=== PATIENT | male | born 1970 | race African-American/Black ===

== ENCOUNTER 2016-11-04 13:32 | Inpatient (IN) | payer MEDICAID ==
[~2016-11-04] VITALS: Ht 188 cm; Wt 145.6 kg
[~2016-11-04 13:32] MED LIST: ALBU18HF2 IH; ASPI-1159 PO; CLON0.1T PO; FERR-43 PO; FURO40TA5 PO; LABE200T PO; LORA10TA7 PO; NIFE60TA64 PO
[2016-11-04 14:23] LABS: BASOPHILS % 0.6 % (0.0-2.0); EOSINOPHILS % 2.3 % (0.0-5.0); HEMATOCRIT. 29.6 % (42.0-52.0); HEMOGLOBIN. 9.8 g/dL (14.0-18.0); MEAN CORPUSCULAR HEMOGLOBIN 29.8 pg (28.0-32.0); MEAN CORPUSCULAR VOLUME 90.5 fL (80.0-94.0); MONOCYTES % 10.7 % (2.0-8.0); NEUTROPHILS % 78.4 % (40.0-76.0); PLATELET 247 x1000/uL (130-400); RED BLOOD CELL COUNT 3.27 mill/uL (4.7-6.1); RED CELL DISTRIBUTION WIDTH 16.7 % (11.6-14.6)
[2016-11-04 14:24] LABS: BG BASE EXCESS 6.2 mmol/L (-2.0-2.0); BG BILEVEL POS AIRWAY PRESSURE 15/5; BG CARBOXYHEMOGLOBIN 0.8 % (0.5-1.5); BG DEOXYHEMOGLOBIN 1.7 % (0.0-5.0); BG METHEMOGLOBIN 0.3 % (0.0-1.5); BG OXYGEN SATURATION 98.3 % (92.0-98.5); BG OXYHEMOGLOBIN 97.2 % (94.0-97.0); BG PCO2 52.8 mmHg (35.0-45.0); BG PH 7.401 (7.350-7.450); BG PO2 129.6 mmHg (75.0-100.0); BG SAMPLE SITE RIGHT RADIAL; BG TOTAL HEMOGLOBIN 10.8 g/dL (12.0-18.0); BG VENT MODE MASK - BIPAP; BG VENT RATE 20 set
[2016-11-04 14:28] LABS: INR 1.2
[2016-11-04 14:32] LABS: CARBON DIOXIDE 34 mEq/L (21-32); CHLORIDE 102 mEq/L (98-107)
[2016-11-04 14:38] LABS: TROPONIN I < 0.02 ng/mL (0.00-0.04)
[2016-11-04] MEDS ORDERED: FUROSEMIDE 40MG/4ML VIAL IVP ONE (15:00)
[2016-11-04] MEDS ORDERED: LIDOCAINE HCL/PF 1% 2ML VIAL ONE (17:07)
[2016-11-04] MEDS ORDERED: IPRATROPIUM/ALBUTEROL 0.5-3(2.5)MG/3ML NEB HHN PRN (17:15)
[2016-11-04] MEDS ORDERED: FURO40TA5 PO (17:58)
[2016-11-04] MEDS ORDERED: ATOR40TA70 PO (17:58)
[2016-11-04] MEDS ORDERED: ZINC50TA2 PO (17:58)
[2016-11-04] MEDS ORDERED: HYDR100T26 PO (17:58)
[2016-11-04] MEDS ORDERED: LOSA100T14 PO (17:58)
[2016-11-04] MEDS ORDERED: CLON0.3T PO (17:58)
[2016-11-04] MEDS ORDERED: CLOP75TA33 PO (17:58)
[2016-11-04] MEDS ORDERED: CARV3.1242 PO (17:58)
[2016-11-04] MEDS ORDERED: FLUT15.88 NS (17:58)
[2016-11-04] MEDS ORDERED: KDUR20 PO (17:58)
[2016-11-04] MEDS ORDERED: VERA240C2 PO (17:58)
[2016-11-04 18:00] VITALS: BP 189/107
[2016-11-04] MEDS ORDERED: ONDANSETRON HCL 4MG/2ML VIAL IV PRN (19:15)
[2016-11-04] MEDS ORDERED: IPRATROPIUM/ALBUTEROL 0.5-3(2.5)MG/3ML NEB INH PRN (19:15)
[2016-11-04] MEDS ORDERED: GUAIFENESIN 200MG/10ML SUGAR FREE UDC PO PRN (19:15)
[2016-11-04] MEDS: ACETAMINOPHEN 325MG TABLET PO PRN (19:49)
[2016-11-04] MEDS: CLONIDINE 0.1MG TABLET PO PRN (19:49)
[2016-11-04 19:51] VITALS: BP 182/103
[2016-11-04 20:00] VITALS: BP 172/109
[2016-11-04] MEDS ORDERED: IPRATROPIUM/ALBUTEROL 0.5-3(2.5)MG/3ML NEB HHN SCH (20:00)
[2016-11-04] MEDS: IPRATROPIUM/ALBUTEROL 0.5-3(2.5)MG/3ML NEB HHN SCH (20:32)
[2016-11-04 22:00] VITALS: BP 155/89
[2016-11-04] MEDS: SODIUM CHLORIDE 0.9% INJ 3ML FLUSH IVF SCH (22:20)
[2016-11-05] VITALS (12 sets, daily range): BP systolic 128–170; BP diastolic 70–99
[2016-11-05] MEDS: HYDRALAZINE 20MG/ML VIAL IV PRN ×3 (00:39→17:50)
[2016-11-05] MEDS: IPRATROPIUM/ALBUTEROL 0.5-3(2.5)MG/3ML NEB HHN SCH ×5 (00:55→20:48)
[2016-11-05] MEDS: SODIUM CHLORIDE 0.9% INJ 3ML FLUSH IVF SCH ×3 (06:00→21:23)
[2016-11-05] MEDS: CLONIDINE 0.1MG TABLET PO PRN ×3 (07:06→19:03)
[2016-11-05] MEDS: HYDRALAZINE HCL 100MG TABLET PO SCH ×2 (08:41→16:56)
[2016-11-05] MEDS: LOSARTAN POTASSIUM 100 MG TABLET PO SCH (08:41)
[2016-11-05] MEDS: CARVEDILOL 3.125 MG TABLET PO SCH ×2 (08:42→21:23)
[2016-11-05] MEDS: CLONIDINE 0.3MG TABLET PO SCH ×3 (08:48→16:56)
[2016-11-05] MEDS: FUROSEMIDE 40MG/4ML VIAL IVP SCH (08:48)
[2016-11-05] MEDS ORDERED: ATORVASTATIN CALCIUM 40MG TABLET PO SCH (09:00)
[2016-11-05 10:26] LABS: CARBON DIOXIDE 32 mEq/L (21-32); CHLORIDE 98 mEq/L (98-107)
[2016-11-05] MEDS: IBUPROFEN 800MG TABLET PO PRN (18:58)
[2016-11-05] MEDS: ATORVASTATIN CALCIUM 40MG TABLET PO SCH (21:23)
[2016-11-06] VITALS (20 sets, daily range): BP systolic 119–181; BP diastolic 78–106
[2016-11-06] MEDS: IPRATROPIUM/ALBUTEROL 0.5-3(2.5)MG/3ML NEB HHN SCH ×6 (00:45→20:14)
[2016-11-06] MEDS: CLONIDINE 0.1MG TABLET PO PRN (04:46)
[2016-11-06] MEDS: SODIUM CHLORIDE 0.9% INJ 3ML FLUSH IVF SCH ×3 (04:46→20:31)
[2016-11-06] MEDS: IBUPROFEN 800MG TABLET PO PRN ×2 (04:50→19:13)
[2016-11-06] MEDS: FUROSEMIDE 40MG/4ML VIAL IVP SCH (08:45)
[2016-11-06] MEDS: HYDRALAZINE HCL 100MG TABLET PO SCH ×2 (08:46→19:13)
[2016-11-06] MEDS: CARVEDILOL 3.125 MG TABLET PO SCH ×2 (08:46→20:31)
[2016-11-06] MEDS: LOSARTAN POTASSIUM 100 MG TABLET PO SCH (08:46)
[2016-11-06] MEDS: CLONIDINE 0.3MG TABLET PO SCH ×3 (08:47→19:13)
[2016-11-06] MEDS: DIPHENHYDRAMINE 50MG/ML VIAL IV PRN (13:07)
[2016-11-06] MEDS: ATORVASTATIN CALCIUM 40MG TABLET PO SCH (20:30)
[2016-11-07] VITALS (13 sets, daily range): BP systolic 145–187; BP diastolic 81–125
[2016-11-07] MEDS: IPRATROPIUM/ALBUTEROL 0.5-3(2.5)MG/3ML NEB HHN SCH ×6 (00:15→20:47)
[2016-11-07] MEDS: HYDRALAZINE 20MG/ML VIAL IV PRN (04:07)
[2016-11-07] MEDS: IBUPROFEN 800MG TABLET PO PRN ×2 (05:25→15:29)
[2016-11-07] MEDS: SODIUM CHLORIDE 0.9% INJ 3ML FLUSH IVF SCH ×3 (06:27→21:01)
[2016-11-07] MEDS: FUROSEMIDE 40MG/4ML VIAL IVP SCH (08:53)
[2016-11-07] MEDS: HYDRALAZINE HCL 100MG TABLET PO SCH ×2 (08:53→17:26)
[2016-11-07] MEDS: CLONIDINE 0.3MG TABLET PO SCH ×3 (08:54→17:26)
[2016-11-07] MEDS: LOSARTAN POTASSIUM 100 MG TABLET PO SCH (08:54)
[2016-11-07] MEDS: CARVEDILOL 3.125 MG TABLET PO SCH ×2 (08:54→20:51)
[2016-11-07 09:27] LABS: BASOPHILS % 0.6 % (0.0-2.0); EOSINOPHILS % 2.9 % (0.0-5.0); HEMATOCRIT. 29.1 % (42.0-52.0); HEMOGLOBIN. 9.5 g/dL (14.0-18.0); LYMPHOCYTES % 7.4 % (20.0-50.0); MEAN CORPUSCULAR HEMOGLOBIN 29.3 pg (28.0-32.0); MEAN CORPUSCULAR VOLUME 89.9 fL (80.0-94.0); MEAN PLATELET VOLUME 8.5 fl (7.4-10.4); MONOCYTES % 10.6 % (2.0-8.0); NEUTROPHILS % 78.5 % (40.0-76.0); PLATELET 230 x1000/uL (130-400); RED BLOOD CELL COUNT 3.24 mill/uL (4.7-6.1); RED CELL DISTRIBUTION WIDTH 16.2 % (11.6-14.6)
[2016-11-07 09:44] LABS: CARBON DIOXIDE 35 mEq/L (21-32); CHLORIDE 101 mEq/L (98-107)
[2016-11-07] MEDS: DIPHENHYDRAMINE 50MG/ML VIAL IV PRN (15:41)
[2016-11-07] MEDS: ATORVASTATIN CALCIUM 40MG TABLET PO SCH (20:51)
[2016-11-08] VITALS (12 sets, daily range): BP systolic 161–182; BP diastolic 81–116
[2016-11-08] MEDS: IPRATROPIUM/ALBUTEROL 0.5-3(2.5)MG/3ML NEB HHN SCH ×6 (00:44→20:44)
[2016-11-08] MEDS: SODIUM CHLORIDE 0.9% INJ 3ML FLUSH IVF SCH ×3 (05:29→21:19)
[2016-11-08] MEDS: ACETAMINOPHEN 325MG TABLET PO PRN (05:47)
[2016-11-08] MEDS: CLONIDINE 0.3MG TABLET PO SCH ×3 (09:17→18:12)
[2016-11-08] MEDS: FUROSEMIDE 40MG/4ML VIAL IVP SCH (09:18)
[2016-11-08] MEDS: CARVEDILOL 3.125 MG TABLET PO SCH ×2 (09:18→20:44)
[2016-11-08] MEDS: HYDRALAZINE HCL 100MG TABLET PO SCH ×2 (09:18→18:12)
[2016-11-08] MEDS: LOSARTAN POTASSIUM 100 MG TABLET PO SCH (09:18)
[2016-11-08] MEDS: MAGNESIUM/ALUMINUM HYDROXIDE/SIMETHICONE 30ML UDC PO PRN (19:10)
[2016-11-08] MEDS: ATORVASTATIN CALCIUM 40MG TABLET PO SCH (20:44)
[2016-11-08] MEDS: IBUPROFEN 800MG TABLET PO PRN (21:23)
[2016-11-08] MEDS: CLONIDINE 0.1MG TABLET PO PRN (23:57)
[2016-11-09] VITALS (13 sets, daily range): BP systolic 142–178; BP diastolic 77–107
[2016-11-09] MEDS: IPRATROPIUM/ALBUTEROL 0.5-3(2.5)MG/3ML NEB HHN SCH ×7 (00:39→23:24)
[2016-11-09] MEDS: SODIUM CHLORIDE 0.9% INJ 3ML FLUSH IVF SCH ×3 (07:09→21:37)
[2016-11-09] MEDS: FUROSEMIDE 40MG/4ML VIAL IVP SCH (08:05)
[2016-11-09] MEDS: LOSARTAN POTASSIUM 100 MG TABLET PO SCH (08:06)
[2016-11-09] MEDS: CLONIDINE 0.3MG TABLET PO SCH ×3 (08:06→17:20)
[2016-11-09] MEDS: HYDRALAZINE HCL 100MG TABLET PO SCH ×2 (08:06→17:20)
[2016-11-09] MEDS: CARVEDILOL 3.125 MG TABLET PO SCH ×2 (08:06→20:06)
[2016-11-09] MEDS: IBUPROFEN 800MG TABLET PO PRN (11:53)
[2016-11-09] MEDS: HYDRALAZINE 20MG/ML VIAL IV PRN (15:22)
[2016-11-09] MEDS: CLONIDINE 0.1MG TABLET PO PRN ×2 (18:30→21:50)
[2016-11-09] MEDS: ATORVASTATIN CALCIUM 40MG TABLET PO SCH (20:04)
[2016-11-10] VITALS (11 sets, daily range): BP systolic 143–191; BP diastolic 80–117
[2016-11-10] MEDS: IPRATROPIUM/ALBUTEROL 0.5-3(2.5)MG/3ML NEB HHN SCH ×6 (03:49→20:34)
[2016-11-10] MEDS: CLONIDINE 0.1MG TABLET PO PRN (04:44)
[2016-11-10] MEDS: SODIUM CHLORIDE 0.9% INJ 3ML FLUSH IVF SCH ×2 (05:34→21:57)
[2016-11-10] MEDS: IBUPROFEN 800MG TABLET PO PRN ×2 (06:15→17:30)
[2016-11-10 06:28] LABS: INR 1.1; PROTHROMBIN TIME 11.3 sec (9.4-11.6)
[2016-11-10] MEDS ORDERED: HYDRALAZINE 20MG/ML VIAL IV PRN (06:30)
[2016-11-10] MEDS: HYDRALAZINE 20MG/ML VIAL IV PRN ×2 (07:06→15:31)
[2016-11-10] MEDS: FUROSEMIDE 40MG/4ML VIAL IVP SCH (09:00)
[2016-11-10] MEDS: CLONIDINE 0.3MG TABLET PO SCH ×3 (09:00→17:26)
[2016-11-10] MEDS: LOSARTAN POTASSIUM 100 MG TABLET PO SCH (09:00)
[2016-11-10] MEDS: HYDRALAZINE HCL 100MG TABLET PO SCH ×2 (09:01→17:25)
[2016-11-10] MEDS: CARVEDILOL 3.125 MG TABLET PO SCH ×2 (09:01→20:08)
[2016-11-10] MEDS: DIPHENHYDRAMINE 50MG/ML VIAL IV PRN (10:15)
[2016-11-10] MEDS ORDERED: SODIUM BICARBONATE 4.2% 5 MEQ/10 ML DISP.SYRIN IV ONE (13:37)
[2016-11-10] MEDS: ACETAMINOPHEN 325MG TABLET PO PRN (20:08)
[2016-11-10] MEDS: ATORVASTATIN CALCIUM 40MG TABLET PO SCH (20:08)
[2016-11-10] MEDS: VERAPAMIL HCL 240MG SR TABLET PO SCH (21:57)
[2016-11-11] VITALS (13 sets, daily range): BP systolic 125–168; BP diastolic 68–110
[2016-11-11] MEDS: CLONIDINE 0.3MG TABLET PO SCH ×3 (00:12→16:31)
[2016-11-11] MEDS: HYDRALAZINE HCL 100MG TABLET PO SCH ×3 (00:13→16:31)
[2016-11-11] MEDS: IPRATROPIUM/ALBUTEROL 0.5-3(2.5)MG/3ML NEB HHN SCH ×6 (00:26→21:08)
[2016-11-11] MEDS: DIPHENHYDRAMINE 50MG/ML VIAL IV PRN (05:34)
[2016-11-11] MEDS: IBUPROFEN 800MG TABLET PO PRN (05:35)
[2016-11-11] MEDS: SODIUM CHLORIDE 0.9% INJ 3ML FLUSH IVF SCH ×3 (05:51→21:31)
[2016-11-11] MEDS: VERAPAMIL HCL 240MG SR TABLET PO SCH ×2 (08:14→21:34)
[2016-11-11] MEDS: CARVEDILOL 3.125 MG TABLET PO SCH ×2 (08:14→21:31)
[2016-11-11] MEDS: LOSARTAN POTASSIUM 100 MG TABLET PO SCH (08:14)
[2016-11-11] MEDS: FUROSEMIDE 40MG/4ML VIAL IVP SCH (08:15)
[2016-11-11 12:30] LABS: HEMATOCRIT 27.4 % (42.0-52.0); HEMOGLOBIN 8.9 g/dL (14.0-18.0); MEAN CORPUSCULAR HEMOGLOBIN 29.4 pg (28.0-32.0); PLATELET 222 x1000/uL (130-400); RED BLOOD CELL COUNT 3.04 mill/uL (4.7-6.1); RED CELL DISTRIBUTION WIDTH 16.3 % (11.6-14.6)
[2016-11-11] MEDS: DOCUSATE SODIUM 100MG CAPSULE PO SCH (17:24)
[2016-11-11 17:44] LABS: HEMATOCRIT 27.8 % (42.0-52.0); MEAN CORPUSCULAR HEMOGLOBIN 29.3 pg (28.0-32.0); MEAN CORPUSCULAR VOLUME 90.2 fL (80.0-94.0); PLATELET 241 x1000/uL (130-400); RED BLOOD CELL COUNT 3.08 mill/uL (4.7-6.1); RED CELL DISTRIBUTION WIDTH 16.2 % (11.6-14.6)
[2016-11-11 17:58] LABS: TOTAL IRON BINDING CAPACITY 182 ug/dL (250-450)
[2016-11-11 18:26] LABS: FOLIC ACID (FOLATE) SERUM 8.8 ng/mL (>5.38)
[2016-11-11] MEDS: MAGNESIUM/ALUMINUM HYDROXIDE/SIMETHICONE 30ML UDC PO PRN (18:29)
[2016-11-11] MEDS: ACETAMINOPHEN 325MG TABLET PO PRN (19:45)
[2016-11-11] MEDS: ATORVASTATIN CALCIUM 40MG TABLET PO SCH (21:31)
[2016-11-11] MEDS ORDERED: MAGNESIUM CITRATE 300ML SOLUTION PO NR (22:00)
[2016-11-12] VITALS (12 sets, daily range): BP systolic 130–157; BP diastolic 69–90
[2016-11-12] MEDS: HYDRALAZINE HCL 100MG TABLET PO SCH ×3 (00:11→19:54)
[2016-11-12] MEDS: CLONIDINE 0.3MG TABLET PO SCH ×3 (00:12→19:53)
[2016-11-12] MEDS: IPRATROPIUM/ALBUTEROL 0.5-3(2.5)MG/3ML NEB HHN SCH ×6 (00:42→20:37)
[2016-11-12] MEDS: DIPHENHYDRAMINE 50MG/ML VIAL IV PRN (05:38)
[2016-11-12] MEDS: SODIUM CHLORIDE 0.9% INJ 3ML FLUSH IVF SCH ×3 (05:38→21:37)
[2016-11-12] MEDS: LOSARTAN POTASSIUM 100 MG TABLET PO SCH (09:03)
[2016-11-12] MEDS: FUROSEMIDE 40MG/4ML VIAL IVP SCH (09:03)
[2016-11-12] MEDS: VERAPAMIL HCL 240MG SR TABLET PO SCH ×2 (09:04→21:10)
[2016-11-12] MEDS: DOCUSATE SODIUM 100MG CAPSULE PO SCH ×2 (09:05→19:53)
[2016-11-12] MEDS: IBUPROFEN 800MG TABLET PO PRN (09:05)
[2016-11-12] MEDS: CARVEDILOL 3.125 MG TABLET PO SCH ×2 (09:08→21:13)
[2016-11-12] MEDS: ASCORBIC ACID 500 MG TABLET PO SCH ×2 (11:41→21:10)
[2016-11-12] MEDS: ACETAMINOPHEN 325MG TABLET PO PRN (11:41)
[2016-11-12] MEDS: HYDROCODONE/ACETAMINOPHEN 5/325MG TABLET PO PRN ×2 (12:04→21:09)
[2016-11-12] MEDS: FERROUS SULFATE 325MG TABLET PO SCH ×2 (13:22→19:53)
[2016-11-12] MEDS: ATORVASTATIN CALCIUM 40MG TABLET PO SCH (21:10)
[2016-11-13] VITALS (14 sets, daily range): BP systolic 121–164; BP diastolic 77–93
[2016-11-13] MEDS: IPRATROPIUM/ALBUTEROL 0.5-3(2.5)MG/3ML NEB HHN SCH ×6 (00:43→20:18)
[2016-11-13] MEDS: HYDRALAZINE HCL 100MG TABLET PO SCH ×3 (01:00→20:44)
[2016-11-13] MEDS: CLONIDINE 0.3MG TABLET PO SCH ×3 (01:00→20:45)
[2016-11-13] MEDS: SODIUM CHLORIDE 0.9% INJ 3ML FLUSH IVF SCH ×3 (05:10→20:44)
[2016-11-13] MEDS: DIPHENHYDRAMINE 50MG/ML VIAL IV PRN ×3 (06:05→16:28)
[2016-11-13] MEDS: HYDROCODONE/ACETAMINOPHEN 5/325MG TABLET PO PRN ×3 (06:07→16:27)
[2016-11-13] MEDS: FUROSEMIDE 40MG/4ML VIAL IVP SCH (09:26)
[2016-11-13] MEDS: ASCORBIC ACID 500 MG TABLET PO SCH ×2 (09:27→20:43)
[2016-11-13] MEDS: LOSARTAN POTASSIUM 100 MG TABLET PO SCH (09:27)
[2016-11-13] MEDS: DOCUSATE SODIUM 100MG CAPSULE PO SCH ×2 (09:27→18:04)
[2016-11-13] MEDS: CARVEDILOL 3.125 MG TABLET PO SCH ×2 (09:27→20:45)
[2016-11-13] MEDS: FERROUS SULFATE 325MG TABLET PO SCH ×3 (09:27→18:04)
[2016-11-13] MEDS: VERAPAMIL HCL 240MG SR TABLET PO SCH ×2 (09:27→20:46)
[2016-11-13] MEDS: MAGNESIUM/ALUMINUM HYDROXIDE/SIMETHICONE 30ML UDC PO PRN (16:34)
[2016-11-13] MEDS: ATORVASTATIN CALCIUM 40MG TABLET PO SCH (20:42)
[2016-11-14] VITALS (8 sets, daily range): BP systolic 134–159; BP diastolic 69–94
[2016-11-14] MEDS: IPRATROPIUM/ALBUTEROL 0.5-3(2.5)MG/3ML NEB HHN SCH ×3 (00:55→07:31)
[2016-11-14] MEDS: DIPHENHYDRAMINE 50MG/ML VIAL IV PRN (06:09)
[2016-11-14] MEDS: HYDRALAZINE HCL 100MG TABLET PO SCH (06:10)
[2016-11-14] MEDS: SODIUM CHLORIDE 0.9% INJ 3ML FLUSH IVF SCH (06:10)
[2016-11-14] MEDS: CLONIDINE 0.3MG TABLET PO SCH (06:11)
[2016-11-14] MEDS: HYDROCODONE/ACETAMINOPHEN 5/325MG TABLET PO PRN (06:12)
[2016-11-14] MEDS: VERAPAMIL HCL 240MG SR TABLET PO SCH (08:24)
[2016-11-14] MEDS: FERROUS SULFATE 325MG TABLET PO SCH (08:24)
[2016-11-14] MEDS: DOCUSATE SODIUM 100MG CAPSULE PO SCH (08:24)
[2016-11-14] MEDS: FUROSEMIDE 40MG/4ML VIAL IVP SCH (08:24)
[2016-11-14] MEDS: LOSARTAN POTASSIUM 100 MG TABLET PO SCH (08:25)
[2016-11-14] MEDS: CARVEDILOL 3.125 MG TABLET PO SCH (08:25)
[2016-11-14] MEDS: ASCORBIC ACID 500 MG TABLET PO SCH (08:25)
== END 2016-11-14 10:30 | disposition short-term general hospital (02) | DRG 133 ==
LOC: ER 14:24 → 5EST 15:51 → ENRESERV 16:09 → 5EST 11-09 04:34
PROVIDERS: ADMIT Internal Medicine; ATTEND Internal Medicine
PROC: 0W993ZZ Drainage of Right Pleural Cavity, Percutaneous Approach (ICD-10-PCS; principal; 2016-11-10)
DX: J96.00 Acute respiratory failure, unspecified whether with hypoxia or hypercapnia (principal); I50.33 Acute on chronic diastolic (congestive) heart failure; E43 Unspecified severe protein-calorie malnutrition; C85.90 Non-Hodgkin lymphoma, unspecified, unspecified site; Z93.0 Tracheostomy status; J84.10 Pulmonary fibrosis, unspecified; Z85.9 Personal history of malignant neoplasm, unspecified; J90 Pleural effusion, not elsewhere classified; K92.2 Gastrointestinal hemorrhage, unspecified; E66.01 Morbid (severe) obesity due to excess calories; I11.0 Hypertensive heart disease with heart failure; D64.9 Anemia, unspecified; G47.30 Sleep apnea, unspecified; D72.829 Elevated white blood cell count, unspecified; I36.1 Nonrheumatic tricuspid (valve) insufficiency; I34.0 Nonrheumatic mitral (valve) insufficiency; Z68.41 Body mass index [BMI] 40.0-44.9, adult; Z86.73 Personal history of transient ischemic attack (TIA), and cerebral infarction without residual deficits; Z87.891 Personal history of nicotine dependence; Z79.899 Other long term (current) drug therapy; Z84.1 Family history of disorders of kidney and ureter; Z79.82 Long term (current) use of aspirin
CPT/HCPCS: 32555; 36415; 36600; 71010; 71275; 80048; 80053; 82040; 82375; 82607; 82728; 82746; 82805; 82945; 83540; 83550; 83615; 83880; 84157; 84484; 85025; 85027; 85610; 87070; 87205; 88108; 88312; 89050; 93005; 94640; 94660; 94664; 96374; 97116; 97162; 99291; J0360; J1200; J1940; J3490; J7620

== ENCOUNTER 2018-08-23 04:34 | Inpatient (IN) | payer MEDICAID ==
[~2018-08-23] VITALS: Ht 175.3 cm; Wt 161.5 kg
[~2018-08-23 04:34] MED LIST changes: -ASPI-1159 PO; +ASPI-1393 PO; +ATOR40TA70 PO; +CARV3.1242 PO; -CLON0.1T PO; +CLON0.3T PO; +CLOP75TA33 PO; -FERR-43 PO; +FLUT15.88 NS; +HYDR100T26 PO; +KDUR20 PO; -LABE200T PO; -LORA10TA7 PO; +LOSA100T32 PO; -NIFE60TA64 PO; +VERA240C2 PO; +ZINC50TA2 PO
[2018-08-23] MEDS ORDERED: IPRATROPIUM BROMIDE (0.02%) 0.5MG/2.5ML NEB HHN STA (04:40)
[2018-08-23] MEDS ORDERED: METHYLPREDNISOLONE SOD SUCC 125 MG/2 ML VIAL IV STA (04:40)
[2018-08-23] MEDS ORDERED: NITROGLYCERIN 50MG PREMIX 250 ML IV ONE (04:45)
[2018-08-23] MEDS ORDERED: FUROSEMIDE 40MG/4ML VIAL IV ONE (04:45)
[2018-08-23] MEDS ORDERED: MAGNESIUM 2 G PREMIX 50 ML IV ONE ×2 (04:45→13:00)
[2018-08-23] MEDS: ALBUTEROL (0.083%) 2.5MG/3ML NEB HHN SCH ×3 (05:00→06:00)
[2018-08-23 05:10] LABS: BASOPHILS % 1.3 % (0.0-2.0); EOSINOPHILS % 5.4 % (0.0-5.0); HEMATOCRIT. 35.2 % (42.0-52.0); HEMOGLOBIN. 12.1 g/dL (14.0-18.0); LYMPHOCYTES % 16.6 % (20.0-50.0); MEAN CORPUSCULAR VOLUME 89.9 fL (80.0-94.0); MEAN PLATELET VOLUME 9.4 fl (7.4-10.4); MONOCYTES % 7.1 % (2.0-8.0); NEUTROPHILS % 69.6 % (40.0-76.0); PLATELET 271 x1000/uL (130-400); RED BLOOD CELL COUNT 3.91 mill/uL (4.7-6.1); RED CELL DISTRIBUTION WIDTH 15.1 % (11.6-14.6)
[2018-08-23 05:12] LABS: CHLORIDE 102 mEq/L (98-107)
[2018-08-23 05:15] LABS: PROTHROMBIN TIME 9.9 sec (9.6-11.0)
[2018-08-23] MEDS ORDERED: KCL 10MEQ/50ML PREMIX 50 ML IV ONE (05:30)
[2018-08-23] MEDS ORDERED: NITROGLYCERIN OINT 1GM/INCH UDPKT TD ONE (05:30)
[2018-08-23] MEDS ORDERED: POTASSIUM CHLORIDE 20MEQ TABLET SR PO ONE (05:30)
[2018-08-23 07:01] LABS: *AMPHETAMINES SCREEN URINE PRESUMTIVE POSITIVE (NEGATIVE); *BARBITURATES SCREEN URINE NEGATIVE (NEGATIVE); *BENZODIAZEPINES SCREEN URINE NEGATIVE (NEGATIVE); *COCAINE SCREEN URINE PRESUMTIVE POSITIVE (NEGATIVE)
[2018-08-23 07:02] LABS: CANNABINOID URINE SCREEN NEGATIVE (NEGATIVE); METHADONE URINE SCREEN NEGATIVE (NEGATIVE); OPIATES URINE SCREEN NEGATIVE (NEGATIVE); PHENCYCLIDINE URINE SCREEN NEGATIVE (NEGATIVE)
[2018-08-23 08:24] LABS: BG BASE EXCESS 2.1 mmol/L (-2.0-2.0); BG BILEVEL POS AIRWAY PRESSURE 15/5; BG CARBOXYHEMOGLOBIN 0.3 % (0.5-1.5); BG DEOXYHEMOGLOBIN 0.3 % (0.0-5.0); BG FRACTION INSPIRED OXYGEN 60; BG HCO3 ACT 27.4 mmol/L (22.0-26.0); BG METHEMOGLOBIN 0.1 % (0.0-1.5); BG OXYGEN SATURATION 99.7 % (92.0-98.5); BG OXYHEMOGLOBIN 99.3 % (94.0-97.0); BG PH 7.393 (7.350-7.450); BG SAMPLE SITE LEFT RADIAL; BG TOTAL HEMOGLOBIN 10.8 g/dL (12.0-18.0); BG VENT MODE MASK - BIPAP; BG VENT RATE 16 set
[2018-08-23] MEDS ORDERED: LORAZEPAM 0.5MG TABLET PO PRN (10:45)
[2018-08-23] MEDS ORDERED: ACETAMINOPHEN 325MG TABLET PO PRN (10:45)
[2018-08-23] MEDS ORDERED: CLONIDINE 0.1MG TABLET PO PRN (10:45)
[2018-08-23] MEDS ORDERED: NITROGLYCERIN 50MG PREMIX 250 ML IV PRN (10:45)
[2018-08-23] MEDS ORDERED: IPRATROPIUM/ALBUTEROL 0.5-3(2.5)MG/3ML NEB INH PRN (10:45)
[2018-08-23] MEDS ORDERED: ONDANSETRON HCL 4MG/2ML INJ IV PRN (10:45)
[2018-08-23] MEDS: HYDROCODONE/ACETAMINOPHEN 5/325MG TABLET PO PRN (10:57)
[2018-08-23] MEDS ORDERED: FUROSEMIDE 40MG/4ML VIAL IVP SCH (11:30)
[2018-08-23] MEDS: IPRATROPIUM/ALBUTEROL 0.5-3(2.5)MG/3ML NEB HHN SCH ×2 (12:00→18:00)
[2018-08-23] MEDS: ASPIRIN 81MG TABLET PO SCH (13:24)
[2018-08-23 13:26] LABS: TOTAL IRON BINDING CAPACITY 316 ug/dL (250-450)
[2018-08-23] MEDS ORDERED: CARVEDILOL 25MG TABLET PO SCH (13:30)
[2018-08-23] MEDS ORDERED: NITROGLYCERIN 50MG PREMIX 250 ML IV NR (13:45)
[2018-08-23] MEDS: CLONIDINE 0.2MG TABLET PO PRN ×2 (13:53→18:04)
[2018-08-23] MEDS: FUROSEMIDE 40MG/4ML VIAL IVP SCH ×2 (13:54→17:15)
[2018-08-23] MEDS: LOSARTAN POTASSIUM 50 MG TABLET PO SCH (13:55)
[2018-08-23] MEDS: ISOSORB DINIT/HYDRALAZINE HCL 20/37.5MG TABLET PO SCH (13:55)
[2018-08-23] MEDS ORDERED: CARVEDILOL 12.5MG TABLET PO SCH ×2 (17:15→21:00)
[2018-08-23] MEDS: CARVEDILOL 12.5MG TABLET PO SCH (22:28)
[2018-08-24] VITALS (67 sets, daily range): BP systolic 99–195; BP diastolic 45–133
[2018-08-24] MEDS: ISOSORB DINIT/HYDRALAZINE HCL 20/37.5MG TABLET PO SCH ×4 (00:02→21:16)
[2018-08-24] MEDS ORDERED: MAGNESIUM 2 G PREMIX 50 ML IV SCH (03:00)
[2018-08-24] MEDS: IPRATROPIUM/ALBUTEROL 0.5-3(2.5)MG/3ML NEB HHN SCH ×3 (03:14→21:12)
[2018-08-24 05:29] LABS: HEMATOCRIT. 26.1 % (42.0-52.0); HEMOGLOBIN. 8.9 g/dL (14.0-18.0); MEAN CORPUSCULAR HEMOGLOBIN 30.6 pg (28.0-32.0); MEAN CORPUSCULAR VOLUME 89.5 fL (80.0-94.0); MEAN PLATELET VOLUME 9.3 fl (7.4-10.4); PLATELET 216 x1000/uL (130-400); RED BLOOD CELL COUNT 2.92 mill/uL (4.7-6.1); RED CELL DISTRIBUTION WIDTH 14.8 % (11.6-14.6)
[2018-08-24] MEDS: NITROGLYCERIN 50MG PREMIX 250 ML IV PRN ×5 (06:01→23:58)
[2018-08-24] MEDS: CLONIDINE 0.2MG TABLET PO PRN ×2 (06:02→13:33)
[2018-08-24] MEDS: HYDROCODONE/ACETAMINOPHEN 5/325MG TABLET PO PRN (06:04)
[2018-08-24] MEDS ORDERED: KCL 20MEQ/100ML PREMIX 100 ML IV ONE (07:00)
[2018-08-24] MEDS: FUROSEMIDE 40MG/4ML VIAL IVP SCH ×2 (07:15→17:15)
[2018-08-24] MEDS: ASPIRIN 81MG TABLET PO SCH (09:11)
[2018-08-24] MEDS: CARVEDILOL 12.5MG TABLET PO SCH ×2 (09:11→21:15)
[2018-08-24] MEDS: LOSARTAN POTASSIUM 50 MG TABLET PO SCH (09:12)
[2018-08-24] MEDS: DOCUSATE SODIUM 100MG CAPSULE PO PRN (09:12)
[2018-08-24] MEDS: POTASSIUM CHLORIDE 20MEQ TABLET SR PO SCH ×2 (09:12→17:15)
[2018-08-24] MEDS: CLOPIDOGREL 75MG TABLET PO SCH (09:12)
[2018-08-24 09:26] LABS: PHOSPHORUS 1.7 mg/dL (2.5-4.9)
[2018-08-24 10:48] LABS: PLATELET ESTIMATE NORMAL
[2018-08-24 15:48] LABS: CLARITY URINE CLEAR (CLEAR); COLOR URINE YELLOW (YELLOW); KETONES URINE NEGATIVE (NEGATIVE); LEUKOCYTE ESTERASE URINE NEGATIVE (NEGATIVE); NITRITE URINE NEGATIVE (NEGATIVE); OCCULT BLOOD URINE NEGATIVE (NEGATIVE); PROTEIN URINE 2+ (NEGATIVE); UROBILINOGEN URINE 0.2 E.U./dL (0.2-1.0)
[2018-08-24] MEDS: DILTIAZEM HCL 60MG TABLET PO SCH ×2 (17:52→23:57)
[2018-08-24] MEDS ORDERED: LOSA50TA41 MT (18:55)
[2018-08-24] MEDS ORDERED: METO100T16 MT (18:55)
[2018-08-24] MEDS ORDERED: HYDR-4135 MT (18:55)
[2018-08-24] MEDS ORDERED: CHLO25TA2 MT (18:55)
[2018-08-24] MEDS ORDERED: ATROV INH (18:55)
[2018-08-24] MEDS: ATORVASTATIN CALCIUM 40MG TABLET PO SCH (21:15)
[2018-08-24] MEDS: CLONIDINE 0.2MG TABLET PO SCH (21:15)
[2018-08-24] MEDS ORDERED: CLONIDINE 0.1MG TABLET PO SCH (22:00)
[2018-08-24] MEDS ORDERED: POTASSIUM PHOS,M-BASIC-D-BASIC 15 MMOL in DEXT 5% WATER 245 ML IV NR (23:30)
[2018-08-25] VITALS (80 sets, daily range): BP systolic 122–168; BP diastolic 60–111
[2018-08-25] MEDS: IPRATROPIUM/ALBUTEROL 0.5-3(2.5)MG/3ML NEB HHN SCH ×4 (02:58→20:21)
[2018-08-25] MEDS: NITROGLYCERIN 50MG PREMIX 250 ML IV PRN ×2 (04:35→08:15)
[2018-08-25 05:18] LABS: BASOPHILS % 0.4 % (0.0-2.0); EOSINOPHILS % 1.6 % (0.0-5.0); HEMATOCRIT. 26.4 % (42.0-52.0); HEMOGLOBIN. 8.9 g/dL (14.0-18.0); LYMPHOCYTES % 11.3 % (20.0-50.0); MEAN CORPUSCULAR HEMOGLOBIN 30.6 pg (28.0-32.0); MEAN CORPUSCULAR VOLUME 90.6 fL (80.0-94.0); MEAN PLATELET VOLUME 8.9 fl (7.4-10.4); MONOCYTES % 10.5 % (2.0-8.0); NEUTROPHILS % 76.2 % (40.0-76.0); PLATELET 195 x1000/uL (130-400); RED BLOOD CELL COUNT 2.91 mill/uL (4.7-6.1); RED CELL DISTRIBUTION WIDTH 14.8 % (11.6-14.6)
[2018-08-25] MEDS: ISOSORB DINIT/HYDRALAZINE HCL 20/37.5MG TABLET PO SCH ×3 (05:31→22:08)
[2018-08-25] MEDS: CLONIDINE 0.2MG TABLET PO SCH ×3 (05:32→22:09)
[2018-08-25] MEDS: DILTIAZEM HCL 60MG TABLET PO SCH (05:32)
[2018-08-25 05:40] LABS: PHOSPHORUS 3.5 mg/dL (2.5-4.9)
[2018-08-25] MEDS: FUROSEMIDE 40MG/4ML VIAL IVP SCH ×2 (07:15→16:34)
[2018-08-25] MEDS ORDERED: MAGNESIUM 2 G PREMIX 50 ML IV NR (08:00)
[2018-08-25] MEDS ORDERED: POTASSIUM CHLORIDE INJ 60 MEQ in DEXT 5% WATER 500 ML IV NR (08:00)
[2018-08-25] MEDS: ASPIRIN 81MG TABLET PO SCH (08:17)
[2018-08-25] MEDS: CLONIDINE 0.2MG TABLET PO PRN ×2 (08:17→15:39)
[2018-08-25] MEDS: DOCUSATE SODIUM 100MG CAPSULE PO PRN (08:17)
[2018-08-25] MEDS: HYDROCODONE/ACETAMINOPHEN 5/325MG TABLET PO PRN (08:17)
[2018-08-25] MEDS: CLOPIDOGREL 75MG TABLET PO SCH (08:18)
[2018-08-25] MEDS: CARVEDILOL 12.5MG TABLET PO SCH ×2 (08:18→21:59)
[2018-08-25] MEDS: LOSARTAN POTASSIUM 100 MG TABLET PO SCH (08:19)
[2018-08-25] MEDS: POTASSIUM CHLORIDE 20MEQ TABLET SR PO SCH ×2 (10:28→16:34)
[2018-08-25] MEDS ORDERED: DILTIAZEM HCL 90MG TABLET PO SCH (12:00)
[2018-08-25] MEDS ORDERED: DILTIAZEM HCL 30MG TABLET PO SCH (12:54)
[2018-08-25] MEDS: SPIRONOLACTONE 50MG TABLET PO SCH (15:38)
[2018-08-25] MEDS: DILTIAZEM HCL 90MG TABLET PO SCH (18:30)
[2018-08-25 19:12] LABS: ANTI-NUCLEAR ANTIBODIES DIRECT Negative (Negative)
[2018-08-25] MEDS ORDERED: POTASSIUM CHLORIDE INJ 60 MEQ in DEXT 5% WATER 250 ML IV ONE (20:45)
[2018-08-25] MEDS: ATORVASTATIN CALCIUM 40MG TABLET PO SCH (21:57)
[2018-08-25] MEDS: KCL 20MEQ/100ML PREMIX 100 ML IV SCH (21:59)
[2018-08-26] VITALS (11 sets, daily range): BP systolic 122–183; BP diastolic 63–94
[2018-08-26] MEDS: IPRATROPIUM/ALBUTEROL 0.5-3(2.5)MG/3ML NEB HHN SCH ×4 (00:23→20:40)
[2018-08-26] MEDS: KCL 20MEQ/100ML PREMIX 100 ML IV SCH ×2 (00:33→02:11)
[2018-08-26] MEDS: CLONIDINE 0.2MG TABLET PO PRN (02:21)
[2018-08-26] MEDS: HYDROCODONE/ACETAMINOPHEN 5/325MG TABLET PO PRN (04:14)
[2018-08-26 06:23] LABS: BASOPHILS % 0.7 % (0.0-2.0); EOSINOPHILS % 3.1 % (0.0-5.0); HEMATOCRIT. 28.7 % (42.0-52.0); HEMOGLOBIN. 9.9 g/dL (14.0-18.0); LYMPHOCYTES % 12.3 % (20.0-50.0); MEAN CORPUSCULAR HEMOGLOBIN 31.2 pg (28.0-32.0); MEAN CORPUSCULAR VOLUME 90.6 fL (80.0-94.0); MEAN PLATELET VOLUME 9.6 fl (7.4-10.4); MONOCYTES % 10.9 % (2.0-8.0); PLATELET 215 x1000/uL (130-400); RED BLOOD CELL COUNT 3.17 mill/uL (4.7-6.1); RED CELL DISTRIBUTION WIDTH 15.2 % (11.6-14.6)
[2018-08-26] MEDS: ISOSORB DINIT/HYDRALAZINE HCL 20/37.5MG TABLET PO SCH ×3 (06:30→21:41)
[2018-08-26] MEDS: DILTIAZEM HCL 90MG TABLET PO SCH ×2 (06:30)
[2018-08-26] MEDS: CLONIDINE 0.2MG TABLET PO SCH ×3 (06:31→21:42)
[2018-08-26 06:40] LABS: PHOSPHORUS 3.5 mg/dL (2.5-4.9)
[2018-08-26] MEDS ORDERED: POTASSIUM CHLORIDE INJ 40 MEQ in DEXT 5% WATER 250 ML IV ONE (07:30)
[2018-08-26 08:17] LABS: COMPLEMENT C3 169 mg/dL (82-167)
[2018-08-26] MEDS: POTASSIUM CHLORIDE 20MEQ TABLET SR PO SCH ×2 (09:15→16:55)
[2018-08-26] MEDS: FUROSEMIDE 40MG/4ML VIAL IVP SCH (09:15)
[2018-08-26] MEDS: CLOPIDOGREL 75MG TABLET PO SCH (09:16)
[2018-08-26] MEDS: CARVEDILOL 12.5MG TABLET PO SCH ×2 (09:16→21:43)
[2018-08-26] MEDS: SPIRONOLACTONE 50MG TABLET PO SCH (09:16)
[2018-08-26] MEDS: ASPIRIN 81MG TABLET PO SCH (09:17)
[2018-08-26] MEDS: LOSARTAN POTASSIUM 100 MG TABLET PO SCH (09:17)
[2018-08-26] MEDS: DILTIAZEM HCL 120MG CAPSULE CD 24HR PO SCH ×2 (12:07→21:46)
[2018-08-26] MEDS: ATORVASTATIN CALCIUM 40MG TABLET PO SCH (21:41)
[2018-08-27] VITALS (7 sets, daily range): BP systolic 116–137; BP diastolic 56–89
[2018-08-27] MEDS: IPRATROPIUM/ALBUTEROL 0.5-3(2.5)MG/3ML NEB HHN SCH ×4 (01:26→20:33)
[2018-08-27 06:10] LABS: BASOPHILS % 0.6 % (0.0-2.0); EOSINOPHILS % 4.8 % (0.0-5.0); HEMATOCRIT. 27.4 % (42.0-52.0); HEMOGLOBIN. 9.4 g/dL (14.0-18.0); LYMPHOCYTES % 12.9 % (20.0-50.0); MEAN CORPUSCULAR HEMOGLOBIN 31.3 pg (28.0-32.0); MEAN CORPUSCULAR VOLUME 90.9 fL (80.0-94.0); MEAN PLATELET VOLUME 9.4 fl (7.4-10.4); MONOCYTES % 8.9 % (2.0-8.0); NEUTROPHILS % 72.8 % (40.0-76.0); PLATELET 226 x1000/uL (130-400); RED BLOOD CELL COUNT 3.01 mill/uL (4.7-6.1); RED CELL DISTRIBUTION WIDTH 15.4 % (11.6-14.6)
[2018-08-27] MEDS: CLONIDINE 0.2MG TABLET PO SCH ×3 (06:31→22:33)
[2018-08-27] MEDS: ISOSORB DINIT/HYDRALAZINE HCL 20/37.5MG TABLET PO SCH ×3 (06:32→22:34)
[2018-08-27] MEDS: FUROSEMIDE 40MG TABLET PO SCH (09:34)
[2018-08-27] MEDS: POTASSIUM CHLORIDE 20MEQ TABLET SR PO SCH ×3 (09:34→22:33)
[2018-08-27] MEDS: DILTIAZEM HCL 120MG CAPSULE CD 24HR PO SCH ×2 (09:34→21:08)
[2018-08-27] MEDS: CLOPIDOGREL 75MG TABLET PO SCH (09:34)
[2018-08-27] MEDS: ASPIRIN 81MG TABLET PO SCH (09:34)
[2018-08-27] MEDS: LOSARTAN POTASSIUM 100 MG TABLET PO SCH (09:34)
[2018-08-27] MEDS: CARVEDILOL 12.5MG TABLET PO SCH ×2 (09:35→21:07)
[2018-08-27] MEDS: ATORVASTATIN CALCIUM 40MG TABLET PO SCH (21:07)
[2018-08-27] MEDS: HYDROCODONE/ACETAMINOPHEN 5/325MG TABLET PO PRN (21:22)
[2018-08-28] VITALS: BP 145/84
[2018-08-28] MEDS: IPRATROPIUM/ALBUTEROL 0.5-3(2.5)MG/3ML NEB HHN SCH ×4 (01:29→20:32)
[2018-08-28 04:00] VITALS: BP 139/84
[2018-08-28] MEDS: CLONIDINE 0.2MG TABLET PO SCH ×3 (05:48→22:32)
[2018-08-28] MEDS: ISOSORB DINIT/HYDRALAZINE HCL 20/37.5MG TABLET PO SCH ×3 (05:48→22:33)
[2018-08-28] MEDS: POTASSIUM CHLORIDE 20MEQ TABLET SR PO SCH ×3 (05:49→22:32)
[2018-08-28 06:45] LABS: BASOPHILS % 0.9 % (0.0-2.0); EOSINOPHILS % 5.8 % (0.0-5.0); HEMATOCRIT. 28.4 % (42.0-52.0); HEMOGLOBIN. 9.8 g/dL (14.0-18.0); LYMPHOCYTES % 12.4 % (20.0-50.0); MEAN CORPUSCULAR HEMOGLOBIN 31.5 pg (28.0-32.0); MEAN CORPUSCULAR VOLUME 91.1 fL (80.0-94.0); MEAN PLATELET VOLUME 9.6 fl (7.4-10.4); MONOCYTES % 7.5 % (2.0-8.0); NEUTROPHILS % 73.4 % (40.0-76.0); PLATELET 238 x1000/uL (130-400); RED BLOOD CELL COUNT 3.12 mill/uL (4.7-6.1); RED CELL DISTRIBUTION WIDTH 15.3 % (11.6-14.6)
[2018-08-28 08:00] VITALS: BP 134/81
[2018-08-28] MEDS: CLOPIDOGREL 75MG TABLET PO SCH (10:40)
[2018-08-28] MEDS: ASPIRIN 81MG TABLET PO SCH (10:41)
[2018-08-28] MEDS: DILTIAZEM HCL 120MG CAPSULE CD 24HR PO SCH ×2 (10:41→22:32)
[2018-08-28] MEDS: FUROSEMIDE 40MG TABLET PO SCH (10:41)
[2018-08-28] MEDS: LOSARTAN POTASSIUM 100 MG TABLET PO SCH (10:42)
[2018-08-28] MEDS: CARVEDILOL 12.5MG TABLET PO SCH ×2 (10:42→22:32)
[2018-08-28 12:00] VITALS: BP 130/85
[2018-08-28 16:00] VITALS: BP 118/64
[2018-08-28] MEDS: POLYETHYLENE GLYCOL 3350 (17GM) 1 DOSE PACK PO SCH (16:27)
[2018-08-28] MEDS ORDERED: CLOP75TA15 PO (16:47)
[2018-08-28] MEDS ORDERED: FURO40TA5 PO (16:47)
[2018-08-28] MEDS ORDERED: POTA20TA82 PO (16:47)
[2018-08-28] MEDS ORDERED: LOSA100T3 PO (16:47)
[2018-08-28] MEDS ORDERED: LIP40 PO (16:47)
[2018-08-28] MEDS ORDERED: ISOS1TAB PO (16:47)
[2018-08-28] MEDS ORDERED: CLON0.2T12 PO (16:47)
[2018-08-28] MEDS ORDERED: COR12 PO (16:47)
[2018-08-28] MEDS ORDERED: DILT120C88 PO (16:47)
[2018-08-28 20:00] VITALS: BP 139/87
[2018-08-28] MEDS: ATORVASTATIN CALCIUM 40MG TABLET PO SCH (22:31)
[2018-08-29] VITALS: BP 138/85
[2018-08-29] MEDS: IPRATROPIUM/ALBUTEROL 0.5-3(2.5)MG/3ML NEB HHN SCH ×3 (00:06→13:49)
[2018-08-29] MEDS: DOCUSATE SODIUM 100MG CAPSULE PO PRN (01:13)
[2018-08-29 04:00] VITALS: BP 144/87
[2018-08-29] MEDS: POLYETHYLENE GLYCOL 3350 (17GM) 1 DOSE PACK PO SCH (09:48)
[2018-08-29] MEDS: CARVEDILOL 12.5MG TABLET PO SCH (09:49)
[2018-08-29] MEDS: DILTIAZEM HCL 120MG CAPSULE CD 24HR PO SCH (09:49)
[2018-08-29] MEDS: LOSARTAN POTASSIUM 100 MG TABLET PO SCH (09:49)
[2018-08-29] MEDS: CLOPIDOGREL 75MG TABLET PO SCH (09:49)
[2018-08-29] MEDS: FUROSEMIDE 40MG TABLET PO SCH (09:49)
[2018-08-29] MEDS: ASPIRIN 81MG TABLET PO SCH (09:50)
[2018-08-29] MEDS ORDERED: LACTULOSE 20G/30ML UDC PO SCH (10:45)
[2018-08-29] MEDS ORDERED: NA PHOS,M-B/NA PHOS,DI-BA ENEMA 118ML PR SCH (10:45)
[2018-08-29 11:27] VITALS: BP 158/90
[2018-08-29 12:32] VITALS: BP 158/90
[2018-08-29] MEDS ORDERED: FUROSEMIDE 40MG TABLET PO SCH (17:00)
== END 2018-08-29 14:13 | disposition home or self-care (01) | DRG 133 ==
LOC: ER 04:34 → EDBEDREQ 05:36 → EDBEDREQTM 05:36 → EDBEDREQSVC 05:36 → CVICU 05:59 → EDBEDREQTM 06:01 → EDBEDREQSVC 06:01 → ENRESERV 08-24 01:29 → 8WST 08-26 10:56
PROVIDERS: ADMIT Internal Medicine; ATTEND Internal Medicine
PROC: 5A09357 Assistance with Respiratory Ventilation, Less than 24 Consecutive Hours, Continuous Positive Airway Pressure (ICD-10-PCS; principal; 2018-08-23)
PROC: 5A09357 Assistance with Respiratory Ventilation, Less than 24 Consecutive Hours, Continuous Positive Airway Pressure (ICD-10-PCS; 2018-08-25)
PROC: 5A09357 Assistance with Respiratory Ventilation, Less than 24 Consecutive Hours, Continuous Positive Airway Pressure (ICD-10-PCS; 2018-08-26)
PROC: 5A09357 Assistance with Respiratory Ventilation, Less than 24 Consecutive Hours, Continuous Positive Airway Pressure (ICD-10-PCS; 2018-08-27)
PROC: 5A09357 Assistance with Respiratory Ventilation, Less than 24 Consecutive Hours, Continuous Positive Airway Pressure (ICD-10-PCS; 2018-08-28)
PROC: 5A09357 Assistance with Respiratory Ventilation, Less than 24 Consecutive Hours, Continuous Positive Airway Pressure (ICD-10-PCS; 2018-08-29)
DX: J96.00 Acute respiratory failure, unspecified whether with hypoxia or hypercapnia (principal); E43 Unspecified severe protein-calorie malnutrition; I50.43 Acute on chronic combined systolic (congestive) and diastolic (congestive) heart failure; D72.1 Eosinophilia; N17.9 Acute kidney failure, unspecified; E66.01 Morbid (severe) obesity due to excess calories; I27.20 Pulmonary hypertension, unspecified; J68.0 Bronchitis and pneumonitis due to chemicals, gases, fumes and vapors; E83.42 Hypomagnesemia; N18.3 Chronic kidney disease, stage 3 (moderate); I08.1 Rheumatic disorders of both mitral and tricuspid valves; I13.0 Hypertensive heart and chronic kidney disease with heart failure and stage 1 through stage 4 chronic kidney disease, or unspecified chronic kidney disease; I16.1 Hypertensive emergency; G47.33 Obstructive sleep apnea (adult) (pediatric); D64.9 Anemia, unspecified; E87.6 Hypokalemia; E78.5 Hyperlipidemia, unspecified; F17.210 Nicotine dependence, cigarettes, uncomplicated; Z79.82 Long term (current) use of aspirin; Z79.899 Other long term (current) drug therapy; Z68.43 Body mass index [BMI] 50.0-59.9, adult; Z85.72 Personal history of non-Hodgkin lymphomas; Z86.73 Personal history of transient ischemic attack (TIA), and cerebral infarction without residual deficits; Z91.19 Patient's noncompliance with other medical treatment and regimen; Z92.21 Personal history of antineoplastic chemotherapy; Z92.3 Personal history of irradiation
CPT/HCPCS: 36415; 36600; 71045; 76770; 80048; 80305; 82375; 82550; 82570; 82728; 82805; 83036; 83540; 83550; 83605; 83735; 83880; 84100; 84132; 84145; 84153; 84156; 84484; 85044; 86038; 86160; 93005; 93306; 93970; 94640; 94660; 96365; 96366; 96375; 96376; 99291; J1940; J2405; J2930; J3475; J3480; J3490; J7050; J7060; J7611; J7620; G0103

== ENCOUNTER 2018-11-17 05:33 | Inpatient (IN) | payer MEDICAID ==
[2018-11-17] VITALS (58 sets, daily range): BP systolic 124–192; BP diastolic 68–119
[~2018-11-17] VITALS: Ht 188 cm; Wt 156.5 kg
[~2018-11-17 05:33] MED LIST changes: -ATOR40TA70 PO; +ATROV INH; -CARV3.1242 PO; +CLON0.2T12 PO; -CLON0.3T PO; +CLOP75TA15 PO; -CLOP75TA33 PO; +COR12 PO; +DILT120C88 PO; -HYDR100T26 PO; +ISOS1TAB PO; -KDUR20 PO; +LIP40 PO; +LOSA100T3 PO; -LOSA100T32 PO; +POTA20TA82 PO; -VERA240C2 PO; -ZINC50TA2 PO
[2018-11-17] MEDS ORDERED: SUCCINYLCHOLINE CHLORIDE 200MG/10ML IV ONE ×2 (05:39→06:00)
[2018-11-17] MEDS ORDERED: ETOMIDATE 2MG/ML 10ML VIAL IV ONE ×2 (05:39→06:00)
[2018-11-17] MEDS ORDERED: PROPOFOL 10MG/ML 100ML 100 ML IV ONE ×2 (05:42→06:00)
[2018-11-17] MEDS ORDERED: METHYLPREDNISOLONE SOD SUCC 125 MG/2 ML VIAL IV STA (05:46)
[2018-11-17] MEDS ORDERED: MORPHINE SULFATE 4 MG/ML CPJ (NOT FOR IM USE) IV STA (05:46)
[2018-11-17] MEDS ORDERED: IPRATROPIUM BROMIDE (0.02%) 0.5MG/2.5ML NEB HHN STA (05:46)
[2018-11-17] MEDS ORDERED: ONDANSETRON HCL 4MG/2ML INJ IV STA (05:46)
[2018-11-17] MEDS ORDERED: MAGNESIUM 2 G PREMIX 50 ML IV ONE (06:00)
[2018-11-17] MEDS ORDERED: NITROGLYCERIN OINT 1GM/INCH UDPKT TD ONE (06:00)
[2018-11-17] MEDS ORDERED: FUROSEMIDE 40MG/4ML VIAL IV ONE (06:00)
[2018-11-17] MEDS ORDERED: ALBUTEROL (0.083%) 2.5MG/3ML NEB HHN SCH (06:00)
[2018-11-17 06:16] LABS: BASOPHILS % 0.3 % (0.0-2.0); EOSINOPHILS % 5.7 % (0.0-5.0); HEMATOCRIT. 34.6 % (42.0-52.0); HEMOGLOBIN. 11.5 g/dL (14.0-18.0); LYMPHOCYTES % 32.6 % (20.0-50.0); MEAN CORPUSCULAR HEMOGLOBIN 30.2 pg (28.0-32.0); MEAN CORPUSCULAR VOLUME 90.7 fL (80.0-94.0); MEAN PLATELET VOLUME 9.3 fl (7.4-10.4); MONOCYTES % 10.2 % (2.0-8.0); NEUTROPHILS % 51.2 % (40.0-76.0); PLATELET 345 x1000/uL (130-400); RED BLOOD CELL COUNT 3.81 mill/uL (4.7-6.1); RED CELL DISTRIBUTION WIDTH 14.9 % (11.6-14.6)
[2018-11-17 06:22] LABS: BG BASE EXCESS 0.8 mmol/L (-2.0-2.0); BG CARBOXYHEMOGLOBIN 0.9 % (0.5-1.5); BG DEOXYHEMOGLOBIN 1.2 % (0.0-5.0); BG FRACTION INSPIRED OXYGEN 100; BG HCO3 ACT 34.7 mmol/L (22.0-26.0); BG METHEMOGLOBIN 0.1 % (0.0-1.5); BG OXYGEN SATURATION 98.8 % (92.0-98.5); BG OXYHEMOGLOBIN 97.8 % (94.0-97.0); BG PCO2 129.3 mmHg (35.0-45.0); BG PH 7.046 (7.350-7.450); BG PO2 197.7 mmHg (75.0-100.0); BG SAMPLE SITE RIGHT RADIAL; BG TIDAL VOLUME(mL) 500 mL; BG TOTAL HEMOGLOBIN 12.1 g/dL (12.0-18.0); BG VENT MODE VENT - A/C; BG VENT RATE 16 set
[2018-11-17 06:22] LABS: CHLORIDE 103 mEq/L (98-107)
[2018-11-17 06:25] LABS: ETHANOL BLOOD < 10 mg/dL
[2018-11-17 08:22] LABS: CLARITY URINE CLEAR (CLEAR); COLOR URINE YELLOW (YELLOW); KETONES URINE NEGATIVE (NEGATIVE); LEUKOCYTE ESTERASE URINE NEGATIVE (NEGATIVE); NITRITE URINE NEGATIVE (NEGATIVE); OCCULT BLOOD URINE NEGATIVE (NEGATIVE); PROTEIN URINE 3+ (NEGATIVE); UROBILINOGEN URINE 0.2 E.U./dL (0.2-1.0)
[2018-11-17] MEDS ORDERED: DOCUSATE SODIUM 100MG CAPSULE PO PRN (08:30)
[2018-11-17] MEDS ORDERED: GUAIFENESIN 200MG/10ML SUGAR FREE UDC PO PRN (08:30)
[2018-11-17] MEDS ORDERED: DIPHENHYDRAMINE 50MG/ML VIAL IV PRN (08:30)
[2018-11-17 08:46] LABS: *BARBITURATES SCREEN URINE NEGATIVE (NEGATIVE)
[2018-11-17 08:48] LABS: *BENZODIAZEPINES SCREEN URINE NEGATIVE (NEGATIVE); *COCAINE SCREEN URINE PRESUMTIVE POSITIVE (NEGATIVE); METHADONE URINE SCREEN NEGATIVE (NEGATIVE); OPIATES URINE SCREEN PRESUMTIVE POSITIVE (NEGATIVE)
[2018-11-17 08:49] LABS: *AMPHETAMINES SCREEN URINE PRESUMTIVE POSITIVE (NEGATIVE); CANNABINOID URINE SCREEN NEGATIVE (NEGATIVE); PHENCYCLIDINE URINE SCREEN NEGATIVE (NEGATIVE)
[2018-11-17 09:08] LABS: PROTHROMBIN TIME 10.2 sec (9.6-11.0)
[2018-11-17 09:14] LABS: PHOSPHORUS 5.5 mg/dL (2.5-4.9)
[2018-11-17] MEDS ORDERED: FENTANYL CITRATE/PF 500 MCG in SODIUM CHLORIDE 0.9% 40 ML IV PRN (09:15)
[2018-11-17] MEDS ORDERED: FAMOTIDINE 20MG/2ML VIAL IV SCH (09:15)
[2018-11-17] MEDS: PROPOFOL 10MG/ML 100ML 100 ML IV PRN ×6 (09:29→21:49)
[2018-11-17] MEDS ORDERED: IPRATROPIUM/ALBUTEROL 0.5-3(2.5)MG/3ML NEB HHN PRN (09:30)
[2018-11-17] MEDS ORDERED: CARVEDILOL 12.5MG TABLET NG SCH (10:15)
[2018-11-17] MEDS: LORATADINE 10MG TABLET PO SCH (10:33)
[2018-11-17] MEDS: FAMOTIDINE 20MG/2ML VIAL IV SCH (10:33)
[2018-11-17] MEDS: FUROSEMIDE 40MG/4ML VIAL IV SCH ×2 (10:33→16:46)
[2018-11-17] MEDS: CLONIDINE 0.2MG TABLET PO SCH ×2 (11:38→21:35)
[2018-11-17] MEDS ORDERED: POTASSIUM CHLORIDE INJ 40 MEQ in DEXT 5% WATER 250 ML IV NR (12:00)
[2018-11-17] MEDS ORDERED: PIPERACILLIN/TAZOBACTAM 2.25 G in DEXTROSE 5% WATER 50 ML IV SCH (12:00)
[2018-11-17 12:14] LABS: CREATINE KINASE 129 IU/L (39-308)
[2018-11-17] MEDS: IPRATROPIUM/ALBUTEROL 0.5-3(2.5)MG/3ML NEB HHN SCH ×2 (12:37→17:04)
[2018-11-17] MEDS: DILTIAZEM HCL 90MG TABLET PO SCH ×3 (12:46→23:29)
[2018-11-17] MEDS ORDERED: DILTIAZEM HCL 90MG TABLET PO SCH (13:00)
[2018-11-17 13:34] LABS: BG BASE EXCESS -1.5 mmol/L (-2.0-2.0); BG CARBOXYHEMOGLOBIN 0.8 % (0.5-1.5); BG DEOXYHEMOGLOBIN 5.9 % (0.0-5.0); BG FRACTION INSPIRED OXYGEN 40; BG HCO3 ACT 26.3 mmol/L (22.0-26.0); BG METHEMOGLOBIN 0.1 % (0.0-1.5); BG OXYHEMOGLOBIN 93.2 % (94.0-97.0); BG PCO2 59.5 mmHg (35.0-45.0); BG PH 7.264 (7.350-7.450); BG PO2 78.5 mmHg (75.0-100.0); BG SAMPLE SITE LEFT RADIAL; BG TIDAL VOLUME(mL) 550 mL; BG TOTAL HEMOGLOBIN 11.5 g/dL (12.0-18.0); BG VENT MODE VENT - A/C; BG VENT RATE 20 set
[2018-11-17] MEDS: METHYLPREDNISOLONE SOD SUCC 125 MG/2 ML VIAL IV SCH ×2 (13:51→21:35)
[2018-11-17] MEDS: CLONIDINE 0.2MG TABLET NG PRN (13:51)
[2018-11-17] MEDS ORDERED: CLONIDINE 0.2MG TABLET PO SCH ×2 (14:00)
[2018-11-17] MEDS ORDERED: DEXTROSE 50% WATER 50ML SYRINGE IV PRN (15:00)
[2018-11-17] MEDS: MONTELUKAST SODIUM 10MG TABLET PO SCH ×2 (16:46→21:35)
[2018-11-17] MEDS: INSULIN LISPRO 100 UNITS/ML SUBCUT SCH ×2 (17:06→23:26)
[2018-11-17] MEDS: BLOOD SUGAR DIAGNOSTIC STRIP TEST SCH ×2 (17:06→23:25)
[2018-11-17 17:30] LABS: CREATINE KINASE MB FRACTION 2.8 ng/mL (0.5-3.6)
[2018-11-17] MEDS: PIPERACILLIN/TAZOBACTAM 3.375 G in DEXTROSE 5% WATER 50 ML IV SCH ×2 (18:02→23:29)
[2018-11-18] VITALS (95 sets, daily range): BP systolic 134–181; BP diastolic 76–113
[2018-11-18] MEDS: PROPOFOL 10MG/ML 100ML 100 ML IV PRN ×5 (01:05→09:15)
[2018-11-18 01:08] LABS: CREATINE KINASE MB FRACTION 2.2 ng/mL (0.5-3.6)
[2018-11-18] MEDS: CLONIDINE 0.2MG TABLET PO SCH (05:13)
[2018-11-18] MEDS: PIPERACILLIN/TAZOBACTAM 3.375 G in DEXTROSE 5% WATER 50 ML IV SCH (05:16)
[2018-11-18] MEDS: METHYLPREDNISOLONE SOD SUCC 125 MG/2 ML VIAL IV SCH (05:17)
[2018-11-18] MEDS: DILTIAZEM HCL 90MG TABLET PO SCH ×4 (05:17→23:58)
[2018-11-18 05:22] LABS: HEMATOCRIT. 30.3 % (42.0-52.0); MEAN CORPUSCULAR HEMOGLOBIN 29.6 pg (28.0-32.0); MEAN CORPUSCULAR VOLUME 89.9 fL (80.0-94.0); MEAN PLATELET VOLUME 9.7 fl (7.4-10.4); PLATELET 238 x1000/uL (130-400); RED BLOOD CELL COUNT 3.37 mill/uL (4.7-6.1); RED CELL DISTRIBUTION WIDTH 14.6 % (11.6-14.6)
[2018-11-18 05:31] LABS: CHLORIDE 103 mEq/L (98-107)
[2018-11-18] MEDS: BLOOD SUGAR DIAGNOSTIC STRIP TEST SCH ×4 (05:35→23:56)
[2018-11-18] MEDS: INSULIN LISPRO 100 UNITS/ML SUBCUT SCH ×4 (05:42→23:57)
[2018-11-18 05:45] LABS: LDL CHOLESTEROL 176 mg/dL (5-100)
[2018-11-18 05:46] LABS: HDL CHOLESTEROL 41 mg/dL (40-59)
[2018-11-18] MEDS: IPRATROPIUM/ALBUTEROL 0.5-3(2.5)MG/3ML NEB HHN SCH ×4 (07:25→19:44)
[2018-11-18] MEDS: FENTANYL CITRATE/PF 500 MCG in SODIUM CHLORIDE 0.9% 40 ML IV PRN ×3 (07:43→23:51)
[2018-11-18 07:50] LABS: BG BASE EXCESS 1.5 mmol/L (-2.0-2.0); BG CARBOXYHEMOGLOBIN 0.6 % (0.5-1.5); BG DEOXYHEMOGLOBIN 8.3 % (0.0-5.0); BG HCO3 ACT 28.7 mmol/L (22.0-26.0); BG METHEMOGLOBIN 0.2 % (0.0-1.5); BG OXYGEN SATURATION 91.6 % (92.0-98.5); BG OXYHEMOGLOBIN 90.9 % (94.0-97.0); BG PCO2 58.6 mmHg (35.0-45.0); BG PH 7.308 (7.350-7.450); BG SAMPLE SITE RIGHT RADIAL; BG TIDAL VOLUME(mL) 550 mL; BG TOTAL HEMOGLOBIN 11.2 g/dL (12.0-18.0); BG VENT MODE VENT - A/C; BG VENT RATE 20 set
[2018-11-18] MEDS: POTASSIUM CHLORIDE 20MEQ/PACKET PO SCH (08:17)
[2018-11-18] MEDS: LORATADINE 10MG TABLET PO SCH (08:17)
[2018-11-18] MEDS: FAMOTIDINE 20MG/2ML VIAL IV SCH (08:17)
[2018-11-18] MEDS ORDERED: FUROSEMIDE 40MG/4ML VIAL IV SCH (09:00)
[2018-11-18] MEDS: MIDAZOLAM HCL 100 MG in DEXT 5% WATER 80 ML IV PRN ×2 (10:40→20:02)
[2018-11-18] MEDS: PIPERACILLIN/TAZOBACTAM 2.25 G in DEXTROSE 5% WATER 50 ML IV SCH ×3 (11:04→23:59)
[2018-11-18 11:19] LABS: PLATELET ESTIMATE NORMAL
[2018-11-18] MEDS ORDERED: CHOL100036 PO (12:00)
[2018-11-18] MEDS ORDERED: HYDR-4135 PO (12:00)
[2018-11-18] MEDS ORDERED: DOXA4TAB3 PO (12:00)
[2018-11-18] MEDS ORDERED: CARV25TA47 PO (12:00)
[2018-11-18] MEDS ORDERED: VERA240C2 PO (12:00)
[2018-11-18] MEDS: METHYLPREDNISOLONE SOD SUCC 40 MG/ML VIAL IV SCH ×2 (13:07→21:08)
[2018-11-18] MEDS: CLONIDINE 0.3MG TABLET PO SCH ×2 (13:07→21:08)
[2018-11-18] MEDS: ENOXAPARIN 30MG/0.3ML SYR SUBCUT SCH (15:11)
[2018-11-18] MEDS: MONTELUKAST SODIUM 10MG TABLET PO SCH (21:08)
[2018-11-19] VITALS (92 sets, daily range): BP systolic 137–173; BP diastolic 78–109
[2018-11-19] MEDS: IPRATROPIUM/ALBUTEROL 0.5-3(2.5)MG/3ML NEB HHN SCH ×7 (00:02→23:54)
[2018-11-19] MEDS: ENOXAPARIN 30MG/0.3ML SYR SUBCUT SCH (04:38)
[2018-11-19 05:01] LABS: HEMATOCRIT. 29.9 % (42.0-52.0); HEMOGLOBIN. 9.9 g/dL (14.0-18.0); MEAN CORPUSCULAR HEMOGLOBIN 30.1 pg (28.0-32.0); MEAN CORPUSCULAR VOLUME 90.2 fL (80.0-94.0); MEAN PLATELET VOLUME 9.6 fl (7.4-10.4); PLATELET 248 x1000/uL (130-400); RED BLOOD CELL COUNT 3.31 mill/uL (4.7-6.1); RED CELL DISTRIBUTION WIDTH 14.9 % (11.6-14.6)
[2018-11-19] MEDS: METHYLPREDNISOLONE SOD SUCC 40 MG/ML VIAL IV SCH ×3 (05:10→21:26)
[2018-11-19] MEDS: CLONIDINE 0.3MG TABLET PO SCH ×3 (05:11→21:25)
[2018-11-19] MEDS: DILTIAZEM HCL 90MG TABLET PO SCH ×3 (05:11→17:51)
[2018-11-19] MEDS: PIPERACILLIN/TAZOBACTAM 2.25 G in DEXTROSE 5% WATER 50 ML IV SCH ×3 (05:12→17:50)
[2018-11-19] MEDS: BLOOD SUGAR DIAGNOSTIC STRIP TEST SCH ×3 (05:29→18:00)
[2018-11-19] MEDS: INSULIN LISPRO 100 UNITS/ML SUBCUT SCH ×3 (05:31→18:21)
[2018-11-19] MEDS: MIDAZOLAM HCL 100 MG in DEXT 5% WATER 80 ML IV PRN ×2 (05:59→15:48)
[2018-11-19] MEDS: FENTANYL CITRATE/PF 500 MCG in SODIUM CHLORIDE 0.9% 40 ML IV PRN ×2 (07:10→17:54)
[2018-11-19 07:49] LABS: BG BASE EXCESS 1.5 mmol/L (-2.0-2.0); BG CARBOXYHEMOGLOBIN 0.2 % (0.5-1.5); BG DEOXYHEMOGLOBIN 3.3 % (0.0-5.0); BG FRACTION INSPIRED OXYGEN 50; BG HCO3 ACT 28.5 mmol/L (22.0-26.0); BG METHEMOGLOBIN 0.6 % (0.0-1.5); BG OXYGEN SATURATION 96.7 % (92.0-98.5); BG OXYHEMOGLOBIN 95.9 % (94.0-97.0); BG PCO2 57.3 mmHg (35.0-45.0); BG PH 7.315 (7.350-7.450); BG PO2 101.4 mmHg (75.0-100.0); BG SAMPLE SITE RIGHT RADIAL; BG TIDAL VOLUME(mL) 550 mL; BG TOTAL HEMOGLOBIN 10.7 g/dL (12.0-18.0); BG VENT MODE VENT - A/C; BG VENT RATE 20 set
[2018-11-19 08:46] LABS: PLATELET ESTIMATE NORMAL
[2018-11-19 09:02] LABS: CREATINE KINASE 58 IU/L (39-308)
[2018-11-19] MEDS: POTASSIUM CHLORIDE 20MEQ/PACKET PO SCH (09:13)
[2018-11-19] MEDS: LORATADINE 10MG TABLET PO SCH (09:13)
[2018-11-19] MEDS: FAMOTIDINE 20MG/2ML VIAL IV SCH (09:13)
[2018-11-19] MEDS: HYDRALAZINE HCL 50MG TABLET PO SCH ×2 (13:54→21:26)
[2018-11-19] MEDS: CLONIDINE 0.2MG TABLET NG PRN (14:57)
[2018-11-19] MEDS: BISACODYL 5MG TABLET PO PRN (15:01)
[2018-11-19] MEDS: DOCUSATE SODIUM SUGAR FREE 100MG/10ML UDC NG SCH (16:09)
[2018-11-19] MEDS: MONTELUKAST SODIUM 10MG TABLET PO SCH (21:25)
[2018-11-20] VITALS (87 sets, daily range): BP systolic 144–181; BP diastolic 84–116
[2018-11-20] MEDS: PIPERACILLIN/TAZOBACTAM 2.25 G in DEXTROSE 5% WATER 50 ML IV SCH ×4 (00:30→18:03)
[2018-11-20] MEDS: DILTIAZEM HCL 90MG TABLET PO SCH ×4 (00:31→18:04)
[2018-11-20] MEDS: BLOOD SUGAR DIAGNOSTIC STRIP TEST SCH ×4 (00:32→17:53)
[2018-11-20] MEDS: INSULIN LISPRO 100 UNITS/ML SUBCUT SCH ×4 (00:32→18:00)
[2018-11-20] MEDS: IPRATROPIUM/ALBUTEROL 0.5-3(2.5)MG/3ML NEB HHN SCH ×5 (03:56→19:57)
[2018-11-20 05:49] LABS: HEMATOCRIT. 29.6 % (42.0-52.0); MEAN CORPUSCULAR HEMOGLOBIN 30.3 pg (28.0-32.0); MEAN CORPUSCULAR VOLUME 89.8 fL (80.0-94.0); MEAN PLATELET VOLUME 9.8 fl (7.4-10.4); PLATELET 264 x1000/uL (130-400); RED BLOOD CELL COUNT 3.29 mill/uL (4.7-6.1); RED CELL DISTRIBUTION WIDTH 15.2 % (11.6-14.6)
[2018-11-20] MEDS: CLONIDINE 0.3MG TABLET PO SCH ×3 (06:34→21:48)
[2018-11-20] MEDS: METHYLPREDNISOLONE SOD SUCC 40 MG/ML VIAL IV SCH ×2 (06:36→18:03)
[2018-11-20] MEDS: HYDRALAZINE HCL 50MG TABLET PO SCH (06:36)
[2018-11-20 06:41] LABS: PHOSPHORUS 5.4 mg/dL (2.5-4.9)
[2018-11-20 08:00] LABS: BG BASE EXCESS -1.3 mmol/L (-2.0-2.0); BG CARBOXYHEMOGLOBIN 0.5 % (0.5-1.5); BG DEOXYHEMOGLOBIN 5.7 % (0.0-5.0); BG HCO3 ACT 24.4 mmol/L (22.0-26.0); BG METHEMOGLOBIN 0.3 % (0.0-1.5); BG OXYGEN SATURATION 94.3 % (92.0-98.5); BG OXYHEMOGLOBIN 93.5 % (94.0-97.0); BG PCO2 45.4 mmHg (35.0-45.0); BG PH 7.349 (7.350-7.450); BG PO2 78.8 mmHg (75.0-100.0); BG SAMPLE SITE RIGHT RADIAL; BG TIDAL VOLUME(mL) 550 mL; BG TOTAL HEMOGLOBIN 10.7 g/dL (12.0-18.0); BG VENT MODE VENT - A/C; BG VENT RATE 22 set
[2018-11-20] MEDS: POTASSIUM CHLORIDE 20MEQ/PACKET PO SCH (08:45)
[2018-11-20] MEDS: ENOXAPARIN 40MG/0.4ML SYR SUBCUT SCH (08:45)
[2018-11-20] MEDS: DOCUSATE SODIUM SUGAR FREE 100MG/10ML UDC NG SCH ×2 (08:45→17:00)
[2018-11-20] MEDS: LORATADINE 10MG TABLET PO SCH (08:45)
[2018-11-20] MEDS: FAMOTIDINE 20MG/2ML VIAL IV SCH (08:45)
[2018-11-20] MEDS ORDERED: POTASSIUM CHLORIDE INJ 40 MEQ in DEXT 5% WATER 250 ML IV SCH (09:00)
[2018-11-20 09:06] LABS: PLATELET ESTIMATE NORMAL
[2018-11-20] MEDS: MIDAZOLAM HCL 100 MG in DEXT 5% WATER 80 ML IV PRN (11:27)
[2018-11-20] MEDS: FENTANYL CITRATE/PF 500 MCG in SODIUM CHLORIDE 0.9% 40 ML IV PRN (11:28)
[2018-11-20] MEDS: HYDRALAZINE HCL 100MG TABLET PO SCH ×2 (15:06→21:49)
[2018-11-20] MEDS: CLONIDINE 0.2MG TABLET NG PRN (18:10)
[2018-11-20] MEDS: MONTELUKAST SODIUM 10MG TABLET PO SCH (21:48)
[2018-11-21] VITALS (91 sets, daily range): BP systolic 144–201; BP diastolic 80–126
[2018-11-21] MEDS: IPRATROPIUM/ALBUTEROL 0.5-3(2.5)MG/3ML NEB HHN SCH ×6 (00:03→20:03)
[2018-11-21] MEDS: PIPERACILLIN/TAZOBACTAM 2.25 G in DEXTROSE 5% WATER 50 ML IV SCH ×5 (00:46→23:05)
[2018-11-21] MEDS: DILTIAZEM HCL 90MG TABLET PO SCH ×5 (00:46→23:05)
[2018-11-21] MEDS: BLOOD SUGAR DIAGNOSTIC STRIP TEST SCH ×5 (00:50→23:19)
[2018-11-21] MEDS: INSULIN LISPRO 100 UNITS/ML SUBCUT SCH ×5 (00:55→23:22)
[2018-11-21] MEDS: FENTANYL CITRATE/PF 500 MCG in SODIUM CHLORIDE 0.9% 40 ML IV PRN ×2 (01:10→01:29)
[2018-11-21] MEDS: MIDAZOLAM HCL 100 MG in DEXT 5% WATER 80 ML IV PRN ×2 (01:13→14:06)
[2018-11-21] MEDS: CLONIDINE 0.3MG TABLET PO SCH ×4 (05:31→23:05)
[2018-11-21] MEDS: HYDRALAZINE HCL 100MG TABLET PO SCH ×3 (05:32→21:05)
[2018-11-21 08:29] LABS: BG CARBOXYHEMOGLOBIN 0.3 % (0.5-1.5); BG DEOXYHEMOGLOBIN 4.8 % (0.0-5.0); BG FRACTION INSPIRED OXYGEN 45; BG HCO3 ACT 26.8 mmol/L (22.0-26.0); BG METHEMOGLOBIN 0.3 % (0.0-1.5); BG OXYGEN SATURATION 95.2 % (92.0-98.5); BG OXYHEMOGLOBIN 94.6 % (94.0-97.0); BG PH 7.364 (7.350-7.450); BG PO2 79.8 mmHg (75.0-100.0); BG SAMPLE SITE LEFT RADIAL; BG TIDAL VOLUME(mL) 550 mL; BG TOTAL HEMOGLOBIN 10.7 g/dL (12.0-18.0); BG VENT MODE VENT - A/C; BG VENT RATE 22 set
[2018-11-21 08:29] LABS: HEMOGLOBIN. 10.6 g/dL (14.0-18.0); MEAN CORPUSCULAR HEMOGLOBIN 30.2 pg (28.0-32.0); MEAN CORPUSCULAR VOLUME 88.7 fL (80.0-94.0); MEAN PLATELET VOLUME 9.5 fl (7.4-10.4); PLATELET 259 x1000/uL (130-400); RED CELL DISTRIBUTION WIDTH 15.1 % (11.6-14.6)
[2018-11-21 09:19] LABS: PLATELET ESTIMATE NORMAL
[2018-11-21] MEDS: METHYLPREDNISOLONE SOD SUCC 40 MG/ML VIAL IV SCH (09:20)
[2018-11-21] MEDS: FAMOTIDINE 20MG/2ML VIAL IV SCH (09:20)
[2018-11-21] MEDS: ENOXAPARIN 40MG/0.4ML SYR SUBCUT SCH (09:20)
[2018-11-21] MEDS: CLONIDINE 0.2MG TABLET NG PRN ×2 (09:56→20:08)
[2018-11-21] MEDS: FUROSEMIDE 40MG TABLET PO SCH (09:56)
[2018-11-21] MEDS: DOCUSATE SODIUM SUGAR FREE 100MG/10ML UDC NG SCH ×2 (09:56→17:54)
[2018-11-21] MEDS: LORATADINE 10MG TABLET PO SCH (09:56)
[2018-11-21] MEDS: POTASSIUM CHLORIDE 20MEQ/PACKET PO SCH ×2 (09:57→17:54)
[2018-11-21] MEDS: FENTANYL CITRATE/PF 1,000 MCG in SODIUM CHLORIDE 0.9% 80 ML IV PRN ×2 (10:24→19:01)
[2018-11-21] MEDS: BUDESONIDE 0.5MG/2ML NEB HHN SCH ×2 (11:09→20:03)
[2018-11-21] MEDS: MONTELUKAST SODIUM 10MG TABLET PO SCH (20:08)
[2018-11-21] MEDS: HYDRALAZINE 20MG/ML VIAL IV PRN (22:00)
[2018-11-22] VITALS (87 sets, daily range): BP systolic 135–182; BP diastolic 71–135
[2018-11-22] MEDS: IPRATROPIUM/ALBUTEROL 0.5-3(2.5)MG/3ML NEB HHN SCH ×6 (00:09→20:45)
[2018-11-22] MEDS: MIDAZOLAM HCL 100 MG in DEXT 5% WATER 80 ML IV PRN ×3 (01:31→22:09)
[2018-11-22] MEDS: ONDANSETRON HCL 4MG/2ML INJ IV PRN ×2 (02:27→06:05)
[2018-11-22] MEDS: DILTIAZEM HCL 90MG TABLET PO SCH ×4 (05:50→23:37)
[2018-11-22] MEDS: CLONIDINE 0.3MG TABLET PO SCH ×4 (05:51→23:39)
[2018-11-22] MEDS: HYDRALAZINE HCL 100MG TABLET PO SCH ×3 (05:51→21:40)
[2018-11-22] MEDS: PIPERACILLIN/TAZOBACTAM 2.25 G in DEXTROSE 5% WATER 50 ML IV SCH ×4 (05:51→23:36)
[2018-11-22] MEDS: BLOOD SUGAR DIAGNOSTIC STRIP TEST SCH ×3 (05:52→18:10)
[2018-11-22] MEDS: INSULIN LISPRO 100 UNITS/ML SUBCUT SCH ×3 (05:52→18:00)
[2018-11-22] MEDS: FENTANYL CITRATE/PF 1,000 MCG in SODIUM CHLORIDE 0.9% 80 ML IV PRN ×2 (05:54→18:34)
[2018-11-22 08:24] LABS: BG BASE EXCESS 4.2 mmol/L (-2.0-2.0); BG CARBOXYHEMOGLOBIN 0.1 % (0.5-1.5); BG DEOXYHEMOGLOBIN 3.8 % (0.0-5.0); BG FRACTION INSPIRED OXYGEN 60; BG HCO3 ACT 31.5 mmol/L (22.0-26.0); BG METHEMOGLOBIN 0.2 % (0.0-1.5); BG OXYGEN SATURATION 96.2 % (92.0-98.5); BG OXYHEMOGLOBIN 95.9 % (94.0-97.0); BG PCO2 61.9 mmHg (35.0-45.0); BG PH 7.324 (7.350-7.450); BG PO2 95.2 mmHg (75.0-100.0); BG SAMPLE SITE RIGHT RADIAL; BG TIDAL VOLUME(mL) 550 mL; BG TOTAL HEMOGLOBIN 10.5 g/dL (12.0-18.0); BG VENT MODE VENT - A/C; BG VENT RATE 18 set
[2018-11-22] MEDS ORDERED: HEPARIN 100 UNITS/1 ML VIAL IVF PRN (08:45)
[2018-11-22] MEDS: BUDESONIDE 0.5MG/2ML NEB HHN SCH ×2 (08:52→20:48)
[2018-11-22] MEDS ORDERED: METHYLPREDNISOLONE SOD SUCC 40 MG/ML VIAL IV SCH (09:00)
[2018-11-22] MEDS: FAMOTIDINE 20MG/2ML VIAL IV SCH (09:01)
[2018-11-22] MEDS: DOCUSATE SODIUM SUGAR FREE 100MG/10ML UDC NG SCH ×2 (09:02→18:09)
[2018-11-22] MEDS: METHYLPREDNISOLONE SOD SUCC 40 MG/ML VIAL IV SCH ×2 (09:02→18:09)
[2018-11-22] MEDS: POTASSIUM CHLORIDE 20MEQ/PACKET PO SCH ×2 (09:02→18:09)
[2018-11-22] MEDS: LORATADINE 10MG TABLET PO SCH (09:02)
[2018-11-22] MEDS: FUROSEMIDE 40MG TABLET PO SCH (09:02)
[2018-11-22] MEDS: ENOXAPARIN 40MG/0.4ML SYR SUBCUT SCH (09:03)
[2018-11-22 10:40] LABS: BASOPHILS % 0.4 % (0.0-2.0); HEMATOCRIT. 31.6 % (42.0-52.0); HEMOGLOBIN. 10.5 g/dL (14.0-18.0); MEAN CORPUSCULAR HEMOGLOBIN 29.9 pg (28.0-32.0); MEAN CORPUSCULAR VOLUME 90.3 fL (80.0-94.0); MEAN PLATELET VOLUME 9.7 fl (7.4-10.4); MONOCYTES % 12.4 % (2.0-8.0); NEUTROPHILS % 79.2 % (40.0-76.0); PLATELET 249 x1000/uL (130-400); RED CELL DISTRIBUTION WIDTH 15.4 % (11.6-14.6)
[2018-11-22] MEDS: METOCLOPRAMIDE HCL 10MG/2ML VIAL IV SCH ×3 (12:22→23:40)
[2018-11-22 19:38] LABS: PHOSPHORUS 5.3 mg/dL (2.5-4.9)
[2018-11-22] MEDS: MONTELUKAST SODIUM 10MG TABLET PO SCH (21:39)
[2018-11-23] VITALS (81 sets, daily range): BP systolic 144–188; BP diastolic 83–115
[2018-11-23] MEDS: BLOOD SUGAR DIAGNOSTIC STRIP TEST SCH ×5 (00:17→23:47)
[2018-11-23] MEDS: IPRATROPIUM/ALBUTEROL 0.5-3(2.5)MG/3ML NEB HHN SCH ×6 (00:41→20:08)
[2018-11-23] MEDS: HYDRALAZINE 20MG/ML VIAL IV PRN (02:46)
[2018-11-23 05:33] LABS: HEMOGLOBIN. 10.9 g/dL (14.0-18.0); MEAN CORPUSCULAR VOLUME 90.7 fL (80.0-94.0); PLATELET 225 x1000/uL (130-400); RED BLOOD CELL COUNT 3.63 mill/uL (4.7-6.1); RED CELL DISTRIBUTION WIDTH 15.3 % (11.6-14.6)
[2018-11-23] MEDS: FENTANYL CITRATE/PF 1,000 MCG in SODIUM CHLORIDE 0.9% 80 ML IV PRN ×2 (05:52→18:00)
[2018-11-23] MEDS: METOCLOPRAMIDE HCL 10MG/2ML VIAL IV SCH (05:59)
[2018-11-23] MEDS: HYDRALAZINE HCL 100MG TABLET PO SCH ×3 (06:00→20:45)
[2018-11-23] MEDS: DILTIAZEM HCL 90MG TABLET PO SCH ×2 (06:01→13:25)
[2018-11-23] MEDS: CLONIDINE 0.3MG TABLET PO SCH ×4 (06:03→23:53)
[2018-11-23] MEDS: PIPERACILLIN/TAZOBACTAM 2.25 G in DEXTROSE 5% WATER 50 ML IV SCH ×4 (06:05→23:52)
[2018-11-23] MEDS: INSULIN LISPRO 100 UNITS/ML SUBCUT SCH ×5 (06:25→23:54)
[2018-11-23 07:04] LABS: BG BASE EXCESS 1.7 mmol/L (-2.0-2.0); BG DEOXYHEMOGLOBIN 3.5 % (0.0-5.0); BG HCO3 ACT 27.9 mmol/L (22.0-26.0); BG METHEMOGLOBIN 0.3 % (0.0-1.5); BG OXYGEN SATURATION 96.5 % (92.0-98.5); BG OXYHEMOGLOBIN 96.2 % (94.0-97.0); BG PCO2 51.1 mmHg (35.0-45.0); BG PH 7.355 (7.350-7.450); BG PO2 95.7 mmHg (75.0-100.0); BG SAMPLE SITE RIGHT RADIAL; BG TIDAL VOLUME(mL) 550 mL; BG TOTAL HEMOGLOBIN 11.7 g/dL (12.0-18.0); BG VENT MODE VENT - A/C; BG VENT RATE 20 set
[2018-11-23] MEDS: BUDESONIDE 0.5MG/2ML NEB HHN SCH ×2 (07:58→20:09)
[2018-11-23] MEDS: FAMOTIDINE 20MG/2ML VIAL IV SCH (08:58)
[2018-11-23] MEDS: METHYLPREDNISOLONE SOD SUCC 40 MG/ML VIAL IV SCH (08:58)
[2018-11-23] MEDS: ENOXAPARIN 40MG/0.4ML SYR SUBCUT SCH (08:59)
[2018-11-23] MEDS: FUROSEMIDE 40MG TABLET PO SCH (08:59)
[2018-11-23] MEDS: BISACODYL 5MG TABLET PO PRN (09:00)
[2018-11-23] MEDS: DOCUSATE SODIUM SUGAR FREE 100MG/10ML UDC NG SCH ×2 (09:00→17:33)
[2018-11-23] MEDS: LORATADINE 10MG TABLET PO SCH (09:00)
[2018-11-23] MEDS: POTASSIUM CHLORIDE 20MEQ/PACKET PO SCH ×2 (09:01→17:33)
[2018-11-23] MEDS: MIDAZOLAM HCL 100 MG in DEXT 5% WATER 80 ML IV PRN ×2 (09:35→20:54)
[2018-11-23] MEDS: QUETIAPINE FUMARATE 25MG TABLET NG SCH ×2 (10:13→20:45)
[2018-11-23] MEDS: METOCLOPRAMIDE HCL 5MG TABLET PO SCH ×3 (13:24→23:53)
[2018-11-23 13:42] LABS: PLATELET ESTIMATE NORMAL
[2018-11-23] MEDS: ACETAMINOPHEN 325MG TABLET PO PRN (15:56)
[2018-11-23] MEDS: DOXAZOSIN MESYLATE 4MG TABLET PO SCH (17:32)
[2018-11-23] MEDS: DILTIAZEM HCL 60MG TABLET PO SCH ×2 (17:33→23:53)
[2018-11-23] MEDS: MONTELUKAST SODIUM 10MG TABLET PO SCH (20:45)
[2018-11-23] MEDS ORDERED: DOXAZOSIN MESYLATE 2MG TABLET PO SCH (21:00)
[2018-11-24] VITALS (62 sets, daily range): BP systolic 131–180; BP diastolic 65–116
[2018-11-24] MEDS: IPRATROPIUM/ALBUTEROL 0.5-3(2.5)MG/3ML NEB HHN SCH ×6 (00:18→20:13)
[2018-11-24] MEDS: FENTANYL CITRATE/PF 1,000 MCG in SODIUM CHLORIDE 0.9% 80 ML IV PRN (05:05)
[2018-11-24] MEDS: BLOOD SUGAR DIAGNOSTIC STRIP TEST SCH ×4 (05:14→23:36)
[2018-11-24] MEDS: PIPERACILLIN/TAZOBACTAM 2.25 G in DEXTROSE 5% WATER 50 ML IV SCH ×4 (05:20→23:38)
[2018-11-24] MEDS: METOCLOPRAMIDE HCL 5MG TABLET PO SCH ×4 (05:21→23:36)
[2018-11-24] MEDS: CLONIDINE 0.3MG TABLET PO SCH ×4 (05:21→23:36)
[2018-11-24] MEDS: DILTIAZEM HCL 60MG TABLET PO SCH ×4 (05:21→23:36)
[2018-11-24] MEDS: HYDRALAZINE HCL 100MG TABLET PO SCH ×3 (05:21→20:42)
[2018-11-24] MEDS: INSULIN LISPRO 100 UNITS/ML SUBCUT SCH ×4 (05:22→23:37)
[2018-11-24 05:25] LABS: HEMATOCRIT. 32.7 % (42.0-52.0); HEMOGLOBIN. 10.8 g/dL (14.0-18.0); MEAN CORPUSCULAR HEMOGLOBIN 30.2 pg (28.0-32.0); MEAN CORPUSCULAR VOLUME 91.7 fL (80.0-94.0); PLATELET 187 x1000/uL (130-400); RED BLOOD CELL COUNT 3.57 mill/uL (4.7-6.1); RED CELL DISTRIBUTION WIDTH 15.5 % (11.6-14.6)
[2018-11-24] MEDS: MIDAZOLAM HCL 100 MG in DEXT 5% WATER 80 ML IV PRN ×2 (07:24→22:00)
[2018-11-24] MEDS: BUDESONIDE 0.5MG/2ML NEB HHN SCH ×2 (08:00→20:13)
[2018-11-24] MEDS: FAMOTIDINE 20MG/2ML VIAL IV SCH (08:20)
[2018-11-24] MEDS: POTASSIUM CHLORIDE 20MEQ/PACKET PO SCH (08:21)
[2018-11-24] MEDS: LORATADINE 10MG TABLET PO SCH (08:21)
[2018-11-24] MEDS: ENOXAPARIN 40MG/0.4ML SYR SUBCUT SCH (08:21)
[2018-11-24] MEDS: FUROSEMIDE 40MG TABLET PO SCH (08:21)
[2018-11-24] MEDS: DOCUSATE SODIUM SUGAR FREE 100MG/10ML UDC NG SCH ×2 (08:22→17:33)
[2018-11-24] MEDS: DOXAZOSIN MESYLATE 4MG TABLET PO SCH ×2 (08:22→17:35)
[2018-11-24] MEDS: QUETIAPINE FUMARATE 25MG TABLET NG SCH ×2 (08:22→20:43)
[2018-11-24] MEDS ORDERED: METHYLPREDNISOLONE SOD SUCC 40 MG/ML VIAL IV SCH (09:00)
[2018-11-24 10:26] LABS: PLATELET ESTIMATE NORMAL
[2018-11-24] MEDS: ACETAMINOPHEN 325MG TABLET PO PRN (13:33)
[2018-11-24] MEDS: MONTELUKAST SODIUM 10MG TABLET PO SCH (20:42)
[2018-11-25] VITALS (57 sets, daily range): BP systolic 104–177; BP diastolic 67–107
[2018-11-25] MEDS: IPRATROPIUM/ALBUTEROL 0.5-3(2.5)MG/3ML NEB HHN SCH ×6 (00:15→20:47)
[2018-11-25] MEDS: INSULIN LISPRO 100 UNITS/ML SUBCUT SCH ×4 (05:17→23:22)
[2018-11-25] MEDS: BLOOD SUGAR DIAGNOSTIC STRIP TEST SCH ×4 (05:17→23:15)
[2018-11-25] MEDS: DILTIAZEM HCL 60MG TABLET PO SCH ×4 (05:18→23:23)
[2018-11-25] MEDS: PIPERACILLIN/TAZOBACTAM 2.25 G in DEXTROSE 5% WATER 50 ML IV SCH ×3 (05:18→17:15)
[2018-11-25] MEDS: METOCLOPRAMIDE HCL 5MG TABLET PO SCH ×4 (05:18→23:23)
[2018-11-25] MEDS: CLONIDINE 0.3MG TABLET PO SCH ×4 (05:21→23:23)
[2018-11-25] MEDS: HYDRALAZINE HCL 100MG TABLET PO SCH ×3 (05:23→21:26)
[2018-11-25] MEDS: FENTANYL CITRATE/PF 1,000 MCG in SODIUM CHLORIDE 0.9% 80 ML IV PRN (05:29)
[2018-11-25 06:01] LABS: BASOPHILS % 0.2 % (0.0-2.0); EOSINOPHILS % 0.1 % (0.0-5.0); HEMATOCRIT. 34.5 % (42.0-52.0); HEMOGLOBIN. 11.3 g/dL (14.0-18.0); LYMPHOCYTES % 7.3 % (20.0-50.0); MEAN CORPUSCULAR HEMOGLOBIN 30.5 pg (28.0-32.0); MEAN CORPUSCULAR VOLUME 93.3 fL (80.0-94.0); MEAN PLATELET VOLUME 10.4 fl (7.4-10.4); MONOCYTES % 9.9 % (2.0-8.0); NEUTROPHILS % 82.5 % (40.0-76.0); PLATELET 167 x1000/uL (130-400); RED BLOOD CELL COUNT 3.69 mill/uL (4.7-6.1)
[2018-11-25] MEDS: QUETIAPINE FUMARATE 25MG TABLET NG SCH ×2 (08:09→20:25)
[2018-11-25] MEDS: FAMOTIDINE 20MG/2ML VIAL IV SCH (08:09)
[2018-11-25] MEDS: ENOXAPARIN 40MG/0.4ML SYR SUBCUT SCH ×2 (08:09→20:25)
[2018-11-25] MEDS: DOCUSATE SODIUM SUGAR FREE 100MG/10ML UDC NG SCH ×2 (08:09→17:13)
[2018-11-25] MEDS: DOXAZOSIN MESYLATE 4MG TABLET PO SCH ×2 (08:10→17:14)
[2018-11-25] MEDS: LORATADINE 10MG TABLET PO SCH (08:10)
[2018-11-25 08:22] LABS: BG BASE EXCESS 3.2 mmol/L (-2.0-2.0); BG CARBOXYHEMOGLOBIN 0.2 % (0.5-1.5); BG DEOXYHEMOGLOBIN 3.5 % (0.0-5.0); BG FRACTION INSPIRED OXYGEN 40; BG HCO3 ACT 29.6 mmol/L (22.0-26.0); BG METHEMOGLOBIN 0.2 % (0.0-1.5); BG OXYGEN SATURATION 96.5 % (92.0-98.5); BG OXYHEMOGLOBIN 96.1 % (94.0-97.0); BG PCO2 54.2 mmHg (35.0-45.0); BG PH 7.355 (7.350-7.450); BG PO2 98.4 mmHg (75.0-100.0); BG SAMPLE SITE RIGHT RADIAL; BG TIDAL VOLUME(mL) 550 mL; BG TOTAL HEMOGLOBIN 10.7 g/dL (12.0-18.0); BG VENT MODE VENT - A/C; BG VENT RATE 18 set
[2018-11-25] MEDS: BUDESONIDE 0.5MG/2ML NEB HHN SCH ×2 (08:23→20:46)
[2018-11-25] MEDS: DEXTROSE 5% WATER 1,000 ML IV SCH (08:27)
[2018-11-25] MEDS: MIDAZOLAM HCL 100 MG in DEXT 5% WATER 80 ML IV PRN (09:14)
[2018-11-25] MEDS ORDERED: LORAZEPAM 2MG/ML CPJ IV PRN (11:15)
[2018-11-25 13:43] LABS: BG BASE EXCESS 2.8 mmol/L (-2.0-2.0); BG CARBOXYHEMOGLOBIN 0.4 % (0.5-1.5); BG DEOXYHEMOGLOBIN 3.9 % (0.0-5.0); BG FRACTION INSPIRED OXYGEN 40; BG HCO3 ACT 28.8 mmol/L (22.0-26.0); BG METHEMOGLOBIN 0.3 % (0.0-1.5); BG OXYGEN SATURATION 96.1 % (92.0-98.5); BG OXYHEMOGLOBIN 95.4 % (94.0-97.0); BG PRESSURE SUPPORT 8; BG SAMPLE SITE RIGHT RADIAL; BG TOTAL HEMOGLOBIN 11.6 g/dL (12.0-18.0); BG VENT MODE VENT - CPAP
[2018-11-25] MEDS: MONTELUKAST SODIUM 10MG TABLET PO SCH (20:25)
[2018-11-25] MEDS: HYDRALAZINE 20MG/ML VIAL IV PRN (20:26)
[2018-11-26] VITALS (98 sets, daily range): BP systolic 141–189; BP diastolic 73–121
[2018-11-26] MEDS: IPRATROPIUM/ALBUTEROL 0.5-3(2.5)MG/3ML NEB HHN SCH ×6 (00:24→20:36)
[2018-11-26] MEDS: HYDRALAZINE 20MG/ML VIAL IV PRN ×3 (04:59→22:40)
[2018-11-26 05:08] LABS: HEMATOCRIT. 32.8 % (42.0-52.0); HEMOGLOBIN. 10.7 g/dL (14.0-18.0); MEAN CORPUSCULAR HEMOGLOBIN 30.1 pg (28.0-32.0); MEAN CORPUSCULAR VOLUME 92.7 fL (80.0-94.0); MEAN PLATELET VOLUME 10.3 fl (7.4-10.4); PLATELET 139 x1000/uL (130-400); RED BLOOD CELL COUNT 3.54 mill/uL (4.7-6.1); RED CELL DISTRIBUTION WIDTH 15.8 % (11.6-14.6)
[2018-11-26] MEDS: HYDRALAZINE HCL 100MG TABLET PO SCH ×3 (05:46→21:06)
[2018-11-26] MEDS: METOCLOPRAMIDE HCL 5MG TABLET PO SCH ×4 (05:46→23:56)
[2018-11-26] MEDS: CLONIDINE 0.3MG TABLET PO SCH ×4 (05:47→23:58)
[2018-11-26] MEDS: DILTIAZEM HCL 60MG TABLET PO SCH ×4 (05:48→23:57)
[2018-11-26] MEDS: INSULIN LISPRO 100 UNITS/ML SUBCUT SCH ×3 (06:00→18:21)
[2018-11-26] MEDS: BLOOD SUGAR DIAGNOSTIC STRIP TEST SCH ×3 (06:12→18:19)
[2018-11-26 07:08] LABS: PLATELET ESTIMATE NORMAL
[2018-11-26 07:30] LABS: BG CARBOXYHEMOGLOBIN 0.5 % (0.5-1.5); BG DEOXYHEMOGLOBIN 4.7 % (0.0-5.0); BG HCO3 ACT 25.8 mmol/L (22.0-26.0); BG METHEMOGLOBIN 0.2 % (0.0-1.5); BG OXYGEN SATURATION 95.3 % (92.0-98.5); BG OXYHEMOGLOBIN 94.6 % (94.0-97.0); BG PCO2 41.8 mmHg (35.0-45.0); BG PH 7.408 (7.350-7.450); BG PO2 88.5 mmHg (75.0-100.0); BG SAMPLE SITE RIGHT RADIAL; BG TOTAL HEMOGLOBIN 11.6 g/dL (12.0-18.0); BG VENT MODE NASAL CANNULA
[2018-11-26] MEDS ORDERED: POTASSIUM CHLORIDE 20MEQ/PACKET PO NR (08:00)
[2018-11-26] MEDS: DEXTROSE 5% WATER 1,000 ML IV SCH ×2 (08:06→09:36)
[2018-11-26] MEDS: QUETIAPINE FUMARATE 25MG TABLET NG SCH (08:19)
[2018-11-26] MEDS: LORATADINE 10MG TABLET PO SCH (08:19)
[2018-11-26] MEDS: DOXAZOSIN MESYLATE 4MG TABLET PO SCH ×2 (08:20→16:46)
[2018-11-26] MEDS: FAMOTIDINE 20MG/2ML VIAL IV SCH (08:21)
[2018-11-26] MEDS: DOCUSATE SODIUM SUGAR FREE 100MG/10ML UDC NG SCH ×2 (08:21→16:45)
[2018-11-26] MEDS: BUDESONIDE 0.5MG/2ML NEB HHN SCH ×2 (08:24→20:36)
[2018-11-26] MEDS ORDERED: QUETIAPINE FUMARATE 25MG TABLET NG SCH (09:00)
[2018-11-26] MEDS: CLONIDINE 0.2MG TABLET NG PRN (10:30)
[2018-11-26] MEDS: ENOXAPARIN 40MG/0.4ML SYR SUBCUT SCH ×2 (10:44→20:08)
[2018-11-26] MEDS: ACETYLCYSTEINE 100MG/ML 10% VIAL 4ML INH SCH (12:27)
[2018-11-26] MEDS: ACETAMINOPHEN 325MG TABLET PO PRN (12:57)
[2018-11-26] MEDS: MONTELUKAST SODIUM 10MG TABLET PO SCH (20:08)
[2018-11-26] MEDS: DIPHENHYDRAMINE 50MG/ML VIAL IV SCH ×2 (20:08→23:56)
[2018-11-26] MEDS: LACTULOSE 20G/30ML UDC PO SCH (21:05)
[2018-11-27] VITALS (101 sets, daily range): BP systolic 122–214; BP diastolic 74–124
[2018-11-27] MEDS: BLOOD SUGAR DIAGNOSTIC STRIP TEST SCH ×5 (00:15→23:07)
[2018-11-27] MEDS: IPRATROPIUM/ALBUTEROL 0.5-3(2.5)MG/3ML NEB HHN SCH ×3 (00:17→08:10)
[2018-11-27] MEDS: ACETYLCYSTEINE 100MG/ML 10% VIAL 4ML INH SCH ×3 (00:17→16:03)
[2018-11-27] MEDS: DIPHENHYDRAMINE 50MG/ML VIAL IV SCH ×2 (03:18→09:33)
[2018-11-27] MEDS: INSULIN LISPRO 100 UNITS/ML SUBCUT SCH ×5 (05:47→23:07)
[2018-11-27] MEDS: CLONIDINE 0.3MG TABLET PO SCH ×4 (05:48→23:05)
[2018-11-27] MEDS: LACTULOSE 20G/30ML UDC PO SCH ×3 (05:48→22:06)
[2018-11-27] MEDS: HYDRALAZINE HCL 100MG TABLET PO SCH ×4 (05:48→23:06)
[2018-11-27] MEDS: DILTIAZEM HCL 60MG TABLET PO SCH ×4 (05:49→23:06)
[2018-11-27] MEDS: METOCLOPRAMIDE HCL 5MG TABLET PO SCH ×4 (05:49→23:04)
[2018-11-27 06:50] LABS: HEMATOCRIT. 32.9 % (42.0-52.0); HEMOGLOBIN. 11.1 g/dL (14.0-18.0); MEAN CORPUSCULAR HEMOGLOBIN 31.1 pg (28.0-32.0); MEAN CORPUSCULAR VOLUME 92.3 fL (80.0-94.0); MEAN PLATELET VOLUME 10.9 fl (7.4-10.4); PHOSPHORUS 2.5 mg/dL (2.5-4.9); PLATELET 115 x1000/uL (130-400); RED BLOOD CELL COUNT 3.57 mill/uL (4.7-6.1); RED CELL DISTRIBUTION WIDTH 15.5 % (11.6-14.6)
[2018-11-27] MEDS: BUDESONIDE 0.5MG/2ML NEB HHN SCH ×2 (08:09→20:28)
[2018-11-27] MEDS: DOCUSATE SODIUM SUGAR FREE 100MG/10ML UDC NG SCH ×2 (08:21→17:14)
[2018-11-27] MEDS: DOXAZOSIN MESYLATE 4MG TABLET PO SCH ×2 (08:21→17:14)
[2018-11-27] MEDS: FAMOTIDINE 20MG/2ML VIAL IV SCH ×2 (08:21→20:29)
[2018-11-27] MEDS: LORATADINE 10MG TABLET PO SCH (08:21)
[2018-11-27 08:41] LABS: PLATELET ESTIMATE DECREASED
[2018-11-27] MEDS: HYDRALAZINE 20MG/ML VIAL IV PRN ×2 (08:41→15:09)
[2018-11-27] MEDS ORDERED: POTASSIUM CHLORIDE 20MEQ/PACKET NG SCH (09:45)
[2018-11-27] MEDS: ENOXAPARIN 40MG/0.4ML SYR SUBCUT SCH ×2 (11:13→20:29)
[2018-11-27] MEDS: ALBUTEROL (0.083%) 2.5MG/3ML NEB HHN SCH ×3 (12:38→20:29)
[2018-11-27] MEDS: DEXTROSE 5% WATER 1,000 ML IV SCH (18:19)
[2018-11-27] MEDS: MONTELUKAST SODIUM 10MG TABLET PO SCH (20:28)
[2018-11-27] MEDS: CLONIDINE 0.2MG TABLET NG PRN (20:29)
[2018-11-27] MEDS ORDERED: HYDRALAZINE HCL 100MG TABLET PO SCH (21:00)
[2018-11-28] VITALS (19 sets, daily range): BP systolic 118–186; BP diastolic 58–124
[2018-11-28] MEDS: ACETYLCYSTEINE 100MG/ML 10% VIAL 4ML INH SCH ×3 (00:15→15:50)
[2018-11-28] MEDS: ALBUTEROL (0.083%) 2.5MG/3ML NEB HHN SCH ×6 (00:16→20:14)
[2018-11-28] MEDS: HYDRALAZINE 20MG/ML VIAL IV PRN (02:01)
[2018-11-28] MEDS: ACETAMINOPHEN 325MG TABLET PO PRN (02:17)
[2018-11-28] MEDS: INSULIN LISPRO 100 UNITS/ML SUBCUT SCH ×3 (06:00→18:00)
[2018-11-28] MEDS: BLOOD SUGAR DIAGNOSTIC STRIP TEST SCH ×3 (06:00→18:22)
[2018-11-28] MEDS: DILTIAZEM HCL 60MG TABLET PO SCH ×3 (07:04→18:31)
[2018-11-28] MEDS: CLONIDINE 0.3MG TABLET PO SCH ×3 (07:04→18:31)
[2018-11-28] MEDS: HYDRALAZINE HCL 100MG TABLET PO SCH ×3 (07:04→18:30)
[2018-11-28] MEDS: METOCLOPRAMIDE HCL 5MG TABLET PO SCH ×3 (07:04→18:31)
[2018-11-28] MEDS: LACTULOSE 20G/30ML UDC PO SCH ×3 (07:05→21:51)
[2018-11-28 07:17] LABS: HEMATOCRIT. 29.3 % (42.0-52.0); HEMOGLOBIN. 9.7 g/dL (14.0-18.0); MEAN CORPUSCULAR HEMOGLOBIN 30.4 pg (28.0-32.0); MEAN CORPUSCULAR VOLUME 91.8 fL (80.0-94.0); MEAN PLATELET VOLUME 10.9 fl (7.4-10.4); PLATELET 95 x1000/uL (130-400); RED BLOOD CELL COUNT 3.19 mill/uL (4.7-6.1); RED CELL DISTRIBUTION WIDTH 15.5 % (11.6-14.6)
[2018-11-28 07:22] LABS: PHOSPHORUS 2.8 mg/dL (2.5-4.9)
[2018-11-28] MEDS: DOCUSATE SODIUM SUGAR FREE 100MG/10ML UDC NG SCH ×2 (09:00→17:22)
[2018-11-28] MEDS: FAMOTIDINE 20MG/2ML VIAL IV SCH ×2 (09:05→21:50)
[2018-11-28] MEDS: ENOXAPARIN 40MG/0.4ML SYR SUBCUT SCH (09:05)
[2018-11-28] MEDS: LORATADINE 10MG TABLET PO SCH (09:05)
[2018-11-28] MEDS: DOXAZOSIN MESYLATE 4MG TABLET PO SCH ×2 (09:06→17:22)
[2018-11-28] MEDS ORDERED: POTASSIUM CHLORIDE 20MEQ/PACKET NG NR (10:00)
[2018-11-28] MEDS: DEXTROSE 5% WATER 1,000 ML IV SCH (10:11)
[2018-11-28 12:01] LABS: PLATELET ESTIMATE SLIGHTLY DECREASED
[2018-11-28] MEDS: MONTELUKAST SODIUM 10MG TABLET PO SCH (21:50)
[2018-11-28] MEDS: ATORVASTATIN CALCIUM 40MG TABLET PO SCH (21:50)
[2018-11-29] VITALS: BP 146/90
[2018-11-29] MEDS: BLOOD SUGAR DIAGNOSTIC STRIP TEST SCH ×4 (00:13→17:35)
[2018-11-29] MEDS: ACETYLCYSTEINE 100MG/ML 10% VIAL 4ML INH SCH ×3 (00:19→16:43)
[2018-11-29] MEDS: ALBUTEROL (0.083%) 2.5MG/3ML NEB HHN SCH ×6 (00:19→20:53)
[2018-11-29] MEDS: CLONIDINE 0.3MG TABLET PO SCH ×4 (00:35→17:33)
[2018-11-29] MEDS: HYDRALAZINE HCL 100MG TABLET PO SCH ×4 (00:36→17:32)
[2018-11-29] MEDS: METOCLOPRAMIDE HCL 5MG TABLET PO SCH ×4 (00:36→17:31)
[2018-11-29] MEDS: DILTIAZEM HCL 60MG TABLET PO SCH ×4 (00:36→18:06)
[2018-11-29] MEDS: INSULIN LISPRO 100 UNITS/ML SUBCUT SCH ×4 (00:46→17:34)
[2018-11-29] MEDS: DEXTROSE 5% WATER 1,000 ML IV SCH (02:42)
[2018-11-29 04:00] VITALS: BP 160/91
[2018-11-29] MEDS: LACTULOSE 20G/30ML UDC PO SCH ×3 (05:34→21:13)
[2018-11-29 06:54] LABS: HEMATOCRIT. 30.3 % (42.0-52.0); MEAN PLATELET VOLUME 11.1 fl (7.4-10.4); PLATELET 103 x1000/uL (130-400); RED BLOOD CELL COUNT 3.33 mill/uL (4.7-6.1); RED CELL DISTRIBUTION WIDTH 15.1 % (11.6-14.6)
[2018-11-29 08:00] VITALS: BP 166/81
[2018-11-29 08:37] LABS: PLATELET ESTIMATE SLIGHTLY DECREASED
[2018-11-29] MEDS: LORATADINE 10MG TABLET PO SCH (10:24)
[2018-11-29] MEDS: DOXAZOSIN MESYLATE 4MG TABLET PO SCH ×2 (10:25→17:36)
[2018-11-29] MEDS: FAMOTIDINE 20MG/2ML VIAL IV SCH ×2 (10:25→21:12)
[2018-11-29 11:33] LABS: BG BASE EXCESS 5.6 mmol/L (-2.0-2.0); BG CARBOXYHEMOGLOBIN 0.9 % (0.5-1.5); BG DEOXYHEMOGLOBIN 8.7 % (0.0-5.0); BG FRACTION INSPIRED OXYGEN 21; BG METHEMOGLOBIN 0.3 % (0.0-1.5); BG OXYGEN SATURATION 91.2 % (92.0-98.5); BG OXYHEMOGLOBIN 90.1 % (94.0-97.0); BG PCO2 43.4 mmHg (35.0-45.0); BG PH 7.458 (7.350-7.450); BG PO2 58.7 mmHg (75.0-100.0); BG SAMPLE SITE LEFT BRACHIAL; BG TOTAL HEMOGLOBIN 10.6 g/dL (12.0-18.0); BG VENT MODE ROOM AIR
[2018-11-29 12:00] VITALS: BP 131/73
[2018-11-29] MEDS: POTASSIUM CHLORIDE 20MEQ TABLET SR PO SCH (13:29)
[2018-11-29 16:00] VITALS: BP 140/80
[2018-11-29] MEDS ORDERED: HYDROCODONE/ACETAMINOPHEN 5/325MG TABLET PO PRN (16:45)
[2018-11-29] MEDS: ACETAMINOPHEN 325MG TABLET PO PRN (18:11)
[2018-11-29 20:00] VITALS: BP 133/63
[2018-11-29] MEDS: MONTELUKAST SODIUM 10MG TABLET PO SCH (21:12)
[2018-11-29] MEDS: ATORVASTATIN CALCIUM 40MG TABLET PO SCH (21:12)
[2018-11-30] VITALS (7 sets, daily range): BP systolic 118–144; BP diastolic 66–90
[2018-11-30] MEDS: BLOOD SUGAR DIAGNOSTIC STRIP TEST SCH ×4 (00:05→17:57)
[2018-11-30] MEDS: DILTIAZEM HCL 60MG TABLET PO SCH ×4 (00:18→17:55)
[2018-11-30] MEDS: METOCLOPRAMIDE HCL 5MG TABLET PO SCH ×4 (00:18→17:55)
[2018-11-30] MEDS: HYDRALAZINE HCL 100MG TABLET PO SCH ×4 (00:18→17:55)
[2018-11-30] MEDS: CLONIDINE 0.3MG TABLET PO SCH ×4 (00:19→17:54)
[2018-11-30] MEDS: ACETYLCYSTEINE 100MG/ML 10% VIAL 4ML INH SCH ×3 (00:58→16:12)
[2018-11-30] MEDS: ALBUTEROL (0.083%) 2.5MG/3ML NEB HHN SCH ×6 (00:59→21:02)
[2018-11-30] MEDS: LACTULOSE 20G/30ML UDC PO SCH ×3 (05:48→21:28)
[2018-11-30] MEDS: INSULIN LISPRO 100 UNITS/ML SUBCUT SCH ×4 (05:49→17:57)
[2018-11-30 06:57] LABS: HEMATOCRIT. 27.6 % (42.0-52.0); HEMOGLOBIN. 9.2 g/dL (14.0-18.0); MEAN CORPUSCULAR HEMOGLOBIN 30.5 pg (28.0-32.0); MEAN CORPUSCULAR VOLUME 90.9 fL (80.0-94.0); PLATELET 90 x1000/uL (130-400); RED BLOOD CELL COUNT 3.04 mill/uL (4.7-6.1); RED CELL DISTRIBUTION WIDTH 15.1 % (11.6-14.6)
[2018-11-30 07:21] LABS: PHOSPHORUS 3.5 mg/dL (2.5-4.9)
[2018-11-30] MEDS: LORATADINE 10MG TABLET PO SCH (09:32)
[2018-11-30] MEDS: DOXAZOSIN MESYLATE 4MG TABLET PO SCH ×2 (09:33→17:57)
[2018-11-30] MEDS: POTASSIUM CHLORIDE 20MEQ TABLET SR PO SCH (09:34)
[2018-11-30] MEDS: FAMOTIDINE 20MG/2ML VIAL IV SCH ×2 (09:34→21:28)
[2018-11-30 12:09] LABS: PLATELET ESTIMATE DECREASED
[2018-11-30] MEDS: DIPHENHYDRAMINE 50MG/ML VIAL IV SCH ×2 (14:31→19:13)
[2018-11-30] MEDS: MONTELUKAST SODIUM 10MG TABLET PO SCH (21:28)
[2018-11-30] MEDS: ATORVASTATIN CALCIUM 40MG TABLET PO SCH (21:28)
[2018-11-30] MEDS: HYDROCORTISONE 1% CREAM 30GM TOP SCH (21:29)
[2018-12-01] VITALS: BP 105/58
[2018-12-01] MEDS: DIPHENHYDRAMINE 50MG/ML VIAL IV SCH ×2 (00:20→05:19)
[2018-12-01] MEDS: METOCLOPRAMIDE HCL 5MG TABLET PO SCH ×4 (00:20→18:07)
[2018-12-01] MEDS: INSULIN LISPRO 100 UNITS/ML SUBCUT SCH ×4 (00:21→17:41)
[2018-12-01] MEDS: BLOOD SUGAR DIAGNOSTIC STRIP TEST SCH ×4 (00:21→17:41)
[2018-12-01] MEDS: ACETYLCYSTEINE 100MG/ML 10% VIAL 4ML INH SCH ×2 (00:53→07:29)
[2018-12-01] MEDS: ALBUTEROL (0.083%) 2.5MG/3ML NEB HHN SCH ×6 (00:53→21:13)
[2018-12-01 04:00] VITALS: BP 136/79
[2018-12-01] MEDS: HYDRALAZINE HCL 100MG TABLET PO SCH ×4 (05:20→18:07)
[2018-12-01] MEDS: DILTIAZEM HCL 60MG TABLET PO SCH ×4 (05:20→18:06)
[2018-12-01] MEDS: CLONIDINE 0.3MG TABLET PO SCH ×4 (05:21→18:07)
[2018-12-01] MEDS: LACTULOSE 20G/30ML UDC PO SCH ×4 (05:21→21:29)
[2018-12-01 07:29] LABS: BASOPHILS % 0.3 % (0.0-2.0); EOSINOPHILS % 1.6 % (0.0-5.0); HEMATOCRIT. 26.7 % (42.0-52.0); LYMPHOCYTES % 7.3 % (20.0-50.0); MEAN CORPUSCULAR HEMOGLOBIN 30.8 pg (28.0-32.0); MEAN CORPUSCULAR VOLUME 91.7 fL (80.0-94.0); MEAN PLATELET VOLUME 11.9 fl (7.4-10.4); MONOCYTES % 9.5 % (2.0-8.0); NEUTROPHILS % 81.3 % (40.0-76.0); PLATELET 105 x1000/uL (130-400); RED BLOOD CELL COUNT 2.92 mill/uL (4.7-6.1); RED CELL DISTRIBUTION WIDTH 14.9 % (11.6-14.6)
[2018-12-01 08:00] VITALS: BP 135/79
[2018-12-01] MEDS: FAMOTIDINE 20MG/2ML VIAL IV SCH ×2 (09:27→20:25)
[2018-12-01] MEDS: LORATADINE 10MG TABLET PO SCH (09:27)
[2018-12-01] MEDS: POTASSIUM CHLORIDE 20MEQ TABLET SR PO SCH (09:28)
[2018-12-01] MEDS: DOXAZOSIN MESYLATE 4MG TABLET PO SCH ×2 (09:28→18:07)
[2018-12-01] MEDS: HYDROCORTISONE 1% CREAM 30GM TOP SCH (09:28)
[2018-12-01 12:00] VITALS: BP 175/96
[2018-12-01 16:00] VITALS: BP 157/86
[2018-12-01 20:00] VITALS: BP 144/88
[2018-12-01] MEDS: ATORVASTATIN CALCIUM 40MG TABLET PO SCH (20:25)
[2018-12-01] MEDS: MONTELUKAST SODIUM 10MG TABLET PO SCH (20:25)
[2018-12-02] VITALS: BP 138/81
[2018-12-02] MEDS: CLONIDINE 0.3MG TABLET PO SCH ×4 (00:44→17:22)
[2018-12-02] MEDS: DILTIAZEM HCL 60MG TABLET PO SCH ×2 (00:44→05:22)
[2018-12-02] MEDS: HYDRALAZINE HCL 100MG TABLET PO SCH ×4 (00:44→17:22)
[2018-12-02] MEDS: METOCLOPRAMIDE HCL 5MG TABLET PO SCH ×4 (00:44→17:21)
[2018-12-02] MEDS: BLOOD SUGAR DIAGNOSTIC STRIP TEST SCH ×4 (00:52→17:23)
[2018-12-02] MEDS: INSULIN LISPRO 100 UNITS/ML SUBCUT SCH ×4 (01:00→17:23)
[2018-12-02] MEDS: ALBUTEROL (0.083%) 2.5MG/3ML NEB HHN SCH ×6 (01:15→20:35)
[2018-12-02 04:00] VITALS: BP 132/68
[2018-12-02] MEDS: LACTULOSE 20G/30ML UDC PO SCH ×3 (05:23→21:54)
[2018-12-02 08:00] VITALS: BP 116/6
[2018-12-02] MEDS: LORATADINE 10MG TABLET PO SCH (08:47)
[2018-12-02] MEDS: DOXAZOSIN MESYLATE 4MG TABLET PO SCH ×3 (08:47→17:00)
[2018-12-02] MEDS: FAMOTIDINE 20MG/2ML VIAL IV SCH ×2 (08:48→21:55)
[2018-12-02] MEDS: POTASSIUM CHLORIDE 20MEQ TABLET SR PO SCH (08:48)
[2018-12-02] MEDS: HYDROCORTISONE 1% CREAM 30GM TOP SCH ×3 (09:00→17:21)
[2018-12-02 10:02] LABS: BASOPHILS % 0.4 % (0.0-2.0); EOSINOPHILS % 1.7 % (0.0-5.0); HEMATOCRIT. 27.1 % (42.0-52.0); HEMOGLOBIN. 9.1 g/dL (14.0-18.0); LYMPHOCYTES % 7.5 % (20.0-50.0); MEAN CORPUSCULAR HEMOGLOBIN 30.6 pg (28.0-32.0); MEAN CORPUSCULAR VOLUME 91.3 fL (80.0-94.0); MEAN PLATELET VOLUME 11.3 fl (7.4-10.4); MONOCYTES % 8.8 % (2.0-8.0); NEUTROPHILS % 81.6 % (40.0-76.0); PLATELET 116 x1000/uL (130-400); RED BLOOD CELL COUNT 2.97 mill/uL (4.7-6.1); RED CELL DISTRIBUTION WIDTH 14.8 % (11.6-14.6)
[2018-12-02 12:00] VITALS: BP 147/81
[2018-12-02] MEDS: VERAPAMIL HCL 120MG TABLET PO SCH ×2 (15:12→21:55)
[2018-12-02 16:00] VITALS: BP 159/78
[2018-12-02] MEDS: CARBAMIDE PEROXIDE 6.5% OTIC SOLN 15ML EACH EAR SCH (17:21)
[2018-12-02 20:00] VITALS: BP 123/75
[2018-12-02] MEDS: ATORVASTATIN CALCIUM 40MG TABLET PO SCH (21:55)
[2018-12-02] MEDS: MONTELUKAST SODIUM 10MG TABLET PO SCH (21:55)
[2018-12-03] VITALS: BP 132/74
[2018-12-03] MEDS: ALBUTEROL (0.083%) 2.5MG/3ML NEB HHN SCH ×6 (00:06→21:06)
[2018-12-03] MEDS: BLOOD SUGAR DIAGNOSTIC STRIP TEST SCH ×4 (00:23→17:01)
[2018-12-03] MEDS: CLONIDINE 0.3MG TABLET PO SCH ×4 (00:27→17:12)
[2018-12-03] MEDS: HYDRALAZINE HCL 100MG TABLET PO SCH ×4 (00:27→17:12)
[2018-12-03] MEDS: METOCLOPRAMIDE HCL 5MG TABLET PO SCH ×4 (00:27→17:12)
[2018-12-03] MEDS: INSULIN LISPRO 100 UNITS/ML SUBCUT SCH ×4 (00:42→17:01)
[2018-12-03 04:00] VITALS: BP 115/71
[2018-12-03] MEDS: LACTULOSE 20G/30ML UDC PO SCH ×4 (06:00→21:49)
[2018-12-03] MEDS: VERAPAMIL HCL 120MG TABLET PO SCH ×3 (06:00→21:50)
[2018-12-03 07:22] LABS: BASOPHILS % 0.5 % (0.0-2.0); EOSINOPHILS % 2.3 % (0.0-5.0); HEMATOCRIT. 26.9 % (42.0-52.0); LYMPHOCYTES % 7.8 % (20.0-50.0); MEAN CORPUSCULAR HEMOGLOBIN 30.5 pg (28.0-32.0); MEAN CORPUSCULAR VOLUME 91.5 fL (80.0-94.0); MEAN PLATELET VOLUME 10.8 fl (7.4-10.4); MONOCYTES % 7.7 % (2.0-8.0); NEUTROPHILS % 81.7 % (40.0-76.0); PLATELET 128 x1000/uL (130-400); RED BLOOD CELL COUNT 2.95 mill/uL (4.7-6.1); RED CELL DISTRIBUTION WIDTH 14.9 % (11.6-14.6)
[2018-12-03 08:00] VITALS: BP 127/75
[2018-12-03] MEDS: DOXAZOSIN MESYLATE 4MG TABLET PO SCH ×2 (08:28→17:11)
[2018-12-03] MEDS: LORATADINE 10MG TABLET PO SCH (08:28)
[2018-12-03] MEDS: FAMOTIDINE 20MG/2ML VIAL IV SCH ×2 (08:29→21:49)
[2018-12-03] MEDS: CARBAMIDE PEROXIDE 6.5% OTIC SOLN 15ML EACH EAR SCH ×2 (08:29→17:10)
[2018-12-03] MEDS: POTASSIUM CHLORIDE 20MEQ TABLET SR PO SCH (08:29)
[2018-12-03] MEDS: HYDROCORTISONE 1% CREAM 30GM TOP SCH ×3 (08:30→17:10)
[2018-12-03 12:00] VITALS: BP 174/92
[2018-12-03] MEDS ORDERED: FUROSEMIDE 40MG/4ML VIAL IVP NR (14:07)
[2018-12-03 16:00] VITALS: BP 164/86
[2018-12-03 20:00] VITALS: BP 138/76
[2018-12-03] MEDS: ATORVASTATIN CALCIUM 40MG TABLET PO SCH (21:49)
[2018-12-03] MEDS: MONTELUKAST SODIUM 10MG TABLET PO SCH (21:49)
[2018-12-04] VITALS: BP 154/61
[2018-12-04] MEDS: ALBUTEROL (0.083%) 2.5MG/3ML NEB HHN SCH ×6 (00:18→20:52)
[2018-12-04] MEDS: METOCLOPRAMIDE HCL 5MG TABLET PO SCH ×4 (00:34→18:37)
[2018-12-04] MEDS: CLONIDINE 0.3MG TABLET PO SCH ×4 (00:35→18:38)
[2018-12-04] MEDS: HYDRALAZINE HCL 100MG TABLET PO SCH ×4 (00:35→18:38)
[2018-12-04] MEDS: BLOOD SUGAR DIAGNOSTIC STRIP TEST SCH ×4 (00:35→18:45)
[2018-12-04] MEDS: INSULIN LISPRO 100 UNITS/ML SUBCUT SCH ×4 (00:46→18:49)
[2018-12-04 04:00] VITALS: BP 151/65
[2018-12-04] MEDS: LACTULOSE 20G/30ML UDC PO SCH ×3 (05:20→21:51)
[2018-12-04] MEDS: VERAPAMIL HCL 120MG TABLET PO SCH ×3 (05:29→21:54)
[2018-12-04 07:23] LABS: BASOPHILS % 0.5 % (0.0-2.0); EOSINOPHILS % 2.4 % (0.0-5.0); HEMATOCRIT. 24.4 % (42.0-52.0); HEMOGLOBIN. 8.2 g/dL (14.0-18.0); LYMPHOCYTES % 7.6 % (20.0-50.0); MEAN CORPUSCULAR HEMOGLOBIN 30.3 pg (28.0-32.0); MEAN CORPUSCULAR VOLUME 90.4 fL (80.0-94.0); MEAN PLATELET VOLUME 10.8 fl (7.4-10.4); MONOCYTES % 9.1 % (2.0-8.0); NEUTROPHILS % 80.4 % (40.0-76.0); PLATELET 119 x1000/uL (130-400); RED CELL DISTRIBUTION WIDTH 15.1 % (11.6-14.6)
[2018-12-04 08:00] VITALS: BP 128/79
[2018-12-04] MEDS: HYDROCORTISONE 1% CREAM 30GM TOP SCH ×3 (09:00→17:00)
[2018-12-04] MEDS: FAMOTIDINE 20MG/2ML VIAL IV SCH ×2 (09:51→21:54)
[2018-12-04] MEDS: LORATADINE 10MG TABLET PO SCH (09:51)
[2018-12-04] MEDS: POTASSIUM CHLORIDE 20MEQ TABLET SR PO SCH (09:51)
[2018-12-04] MEDS: CARBAMIDE PEROXIDE 6.5% OTIC SOLN 15ML EACH EAR SCH ×2 (09:51→18:37)
[2018-12-04] MEDS: DOXAZOSIN MESYLATE 4MG TABLET PO SCH ×2 (10:12→18:38)
[2018-12-04 12:00] VITALS: BP 148/89
[2018-12-04 16:00] VITALS: BP 149/79
[2018-12-04 20:00] VITALS: BP 127/76
[2018-12-04] MEDS: MONTELUKAST SODIUM 10MG TABLET PO SCH (21:54)
[2018-12-04] MEDS: ATORVASTATIN CALCIUM 40MG TABLET PO SCH (21:55)
[2018-12-05] VITALS: BP 120/78
[2018-12-05] MEDS: METOCLOPRAMIDE HCL 5MG TABLET PO SCH ×4 (00:52→17:33)
[2018-12-05] MEDS: CLONIDINE 0.3MG TABLET PO SCH ×4 (00:52→17:33)
[2018-12-05] MEDS: HYDRALAZINE HCL 100MG TABLET PO SCH ×4 (00:53→17:33)
[2018-12-05] MEDS: INSULIN LISPRO 100 UNITS/ML SUBCUT SCH ×4 (00:59→17:33)
[2018-12-05] MEDS: BLOOD SUGAR DIAGNOSTIC STRIP TEST SCH ×4 (00:59→17:34)
[2018-12-05] MEDS: ALBUTEROL (0.083%) 2.5MG/3ML NEB HHN SCH ×6 (01:03→20:27)
[2018-12-05 04:00] VITALS: BP 129/79
[2018-12-05] MEDS: LACTULOSE 20G/30ML UDC PO SCH ×4 (06:00→21:34)
[2018-12-05 06:36] LABS: BASOPHILS % 0.7 % (0.0-2.0); EOSINOPHILS % 2.3 % (0.0-5.0); HEMATOCRIT. 24.6 % (42.0-52.0); HEMOGLOBIN. 8.3 g/dL (14.0-18.0); LYMPHOCYTES % 8.7 % (20.0-50.0); MEAN CORPUSCULAR HEMOGLOBIN 30.6 pg (28.0-32.0); MEAN CORPUSCULAR VOLUME 90.5 fL (80.0-94.0); MEAN PLATELET VOLUME 10.5 fl (7.4-10.4); MONOCYTES % 7.4 % (2.0-8.0); NEUTROPHILS % 80.9 % (40.0-76.0); PLATELET 130 x1000/uL (130-400); RED BLOOD CELL COUNT 2.72 mill/uL (4.7-6.1); RED CELL DISTRIBUTION WIDTH 14.9 % (11.6-14.6)
[2018-12-05] MEDS: VERAPAMIL HCL 120MG TABLET PO SCH ×3 (06:43→21:23)
[2018-12-05 08:00] VITALS: BP 100/62
[2018-12-05] MEDS: FAMOTIDINE 20MG/2ML VIAL IV SCH ×2 (08:29→21:23)
[2018-12-05] MEDS: POTASSIUM CHLORIDE 20MEQ TABLET SR PO SCH (08:29)
[2018-12-05] MEDS: CARBAMIDE PEROXIDE 6.5% OTIC SOLN 15ML EACH EAR SCH ×2 (08:29→17:32)
[2018-12-05] MEDS: LORATADINE 10MG TABLET PO SCH (08:29)
[2018-12-05] MEDS: HYDROCORTISONE 1% CREAM 30GM TOP SCH ×3 (08:42→17:32)
[2018-12-05] MEDS: DOXAZOSIN MESYLATE 4MG TABLET PO SCH ×2 (09:00→17:33)
[2018-12-05 12:00] VITALS: BP 147/79
[2018-12-05] MEDS ORDERED: FUROSEMIDE 40MG/4ML VIAL IVP SCH (14:00)
[2018-12-05 16:00] VITALS: BP 121/70
[2018-12-05 20:00] VITALS: BP 134/79
[2018-12-05] MEDS: MONTELUKAST SODIUM 10MG TABLET PO SCH (21:22)
[2018-12-05] MEDS: ATORVASTATIN CALCIUM 40MG TABLET PO SCH (21:23)
[2018-12-06] VITALS: BP 134/77
[2018-12-06] MEDS: HYDRALAZINE HCL 100MG TABLET PO SCH ×4 (00:09→17:51)
[2018-12-06] MEDS: METOCLOPRAMIDE HCL 5MG TABLET PO SCH ×4 (00:09→17:51)
[2018-12-06] MEDS: BLOOD SUGAR DIAGNOSTIC STRIP TEST SCH ×4 (00:09→17:10)
[2018-12-06] MEDS: CLONIDINE 0.3MG TABLET PO SCH ×4 (00:09→17:52)
[2018-12-06] MEDS: INSULIN LISPRO 100 UNITS/ML SUBCUT SCH ×4 (00:39→17:11)
[2018-12-06] MEDS: ALBUTEROL (0.083%) 2.5MG/3ML NEB HHN SCH ×3 (01:08→10:09)
[2018-12-06 04:00] VITALS: BP 140/88
[2018-12-06] MEDS: VERAPAMIL HCL 120MG TABLET PO SCH ×3 (05:19→21:54)
[2018-12-06] MEDS: LACTULOSE 20G/30ML UDC PO SCH ×4 (05:20→21:55)
[2018-12-06 07:31] LABS: BASOPHILS % 0.7 % (0.0-2.0); EOSINOPHILS % 2.7 % (0.0-5.0); HEMATOCRIT. 24.1 % (42.0-52.0); MEAN CORPUSCULAR VOLUME 90.1 fL (80.0-94.0); MEAN PLATELET VOLUME 9.5 fl (7.4-10.4); MONOCYTES % 8.7 % (2.0-8.0); NEUTROPHILS % 77.9 % (40.0-76.0); PLATELET 138 x1000/uL (130-400); RED BLOOD CELL COUNT 2.68 mill/uL (4.7-6.1); RED CELL DISTRIBUTION WIDTH 14.9 % (11.6-14.6)
[2018-12-06 08:00] VITALS: BP 118/85
[2018-12-06] MEDS: LORATADINE 10MG TABLET PO SCH (09:40)
[2018-12-06] MEDS: DOXAZOSIN MESYLATE 4MG TABLET PO SCH ×2 (09:41→17:52)
[2018-12-06] MEDS: POTASSIUM CHLORIDE 20MEQ TABLET SR PO SCH (09:41)
[2018-12-06] MEDS: HYDROCORTISONE 1% CREAM 30GM TOP SCH ×3 (09:46→17:53)
[2018-12-06] MEDS: CARBAMIDE PEROXIDE 6.5% OTIC SOLN 15ML EACH EAR SCH ×2 (09:47→17:52)
[2018-12-06 12:00] VITALS: BP 145/88
[2018-12-06] MEDS: POLYETHYLENE GLYCOL 3350 (17GM) 1 DOSE PACK PO SCH ×2 (12:00→13:25)
[2018-12-06] MEDS: ALBUTEROL (0.083%) 2.5MG/3ML NEB HHN PRN ×2 (14:13→20:38)
[2018-12-06 16:00] VITALS: BP 121/79
[2018-12-06 20:00] VITALS: BP 153/89
[2018-12-06] MEDS: BUDESONIDE 0.5MG/2ML NEB HHN SCH (20:37)
[2018-12-06] MEDS: FAMOTIDINE 20MG TABLET PO SCH (21:53)
[2018-12-06] MEDS: ATORVASTATIN CALCIUM 40MG TABLET PO SCH (21:53)
[2018-12-06] MEDS: MONTELUKAST SODIUM 10MG TABLET PO SCH (21:53)
[2018-12-07] VITALS: BP 140/79
[2018-12-07] MEDS: METOCLOPRAMIDE HCL 5MG TABLET PO SCH ×4 (00:07→17:25)
[2018-12-07] MEDS: HYDRALAZINE HCL 100MG TABLET PO SCH ×4 (00:07→17:24)
[2018-12-07] MEDS: BLOOD SUGAR DIAGNOSTIC STRIP TEST SCH ×4 (00:07→17:31)
[2018-12-07] MEDS: CLONIDINE 0.3MG TABLET PO SCH ×5 (00:07→22:39)
[2018-12-07] MEDS: INSULIN LISPRO 100 UNITS/ML SUBCUT SCH ×4 (00:26→17:31)
[2018-12-07 04:00] VITALS: BP 125/76
[2018-12-07] MEDS: LACTULOSE 20G/30ML UDC PO SCH ×3 (05:28→22:35)
[2018-12-07] MEDS: VERAPAMIL HCL 120MG TABLET PO SCH ×3 (05:28→22:37)
[2018-12-07 08:00] VITALS: BP 114/74
[2018-12-07] MEDS: POLYETHYLENE GLYCOL 3350 (17GM) 1 DOSE PACK PO SCH (09:00)
[2018-12-07] MEDS: LORATADINE 10MG TABLET PO SCH (09:52)
[2018-12-07] MEDS: POTASSIUM CHLORIDE 20MEQ TABLET SR PO SCH (09:52)
[2018-12-07] MEDS: DOXAZOSIN MESYLATE 4MG TABLET PO SCH ×2 (09:53→17:25)
[2018-12-07] MEDS: FUROSEMIDE 40MG TABLET PO SCH (09:54)
[2018-12-07] MEDS: CARBAMIDE PEROXIDE 6.5% OTIC SOLN 15ML EACH EAR SCH ×2 (09:54→17:31)
[2018-12-07] MEDS: HYDROCORTISONE 1% CREAM 30GM TOP SCH ×3 (09:55→17:31)
[2018-12-07] MEDS: BUDESONIDE 0.5MG/2ML NEB HHN SCH ×2 (10:42→21:14)
[2018-12-07 11:48] VITALS: BP 145/95
[2018-12-07 16:00] VITALS: BP 131/81
[2018-12-07] MEDS: MONTELUKAST SODIUM 10MG TABLET PO SCH (22:36)
[2018-12-07] MEDS: FAMOTIDINE 20MG TABLET PO SCH (22:37)
[2018-12-07] MEDS: ATORVASTATIN CALCIUM 40MG TABLET PO SCH (22:38)
[2018-12-08] MEDS: HYDRALAZINE HCL 100MG TABLET PO SCH ×4 (00:53→17:44)
[2018-12-08] MEDS: METOCLOPRAMIDE HCL 5MG TABLET PO SCH ×4 (00:53→17:45)
[2018-12-08] MEDS: BLOOD SUGAR DIAGNOSTIC STRIP TEST SCH ×4 (06:00→17:45)
[2018-12-08] MEDS: LACTULOSE 20G/30ML UDC PO SCH ×3 (06:00→21:20)
[2018-12-08] MEDS: INSULIN LISPRO 100 UNITS/ML SUBCUT SCH ×4 (06:00→17:46)
[2018-12-08] MEDS: VERAPAMIL HCL 120MG TABLET PO SCH ×3 (06:58→21:28)
[2018-12-08] MEDS: CLONIDINE 0.3MG TABLET PO SCH ×3 (06:59→17:45)
[2018-12-08 08:00] VITALS: BP 126/85
[2018-12-08] MEDS: POLYETHYLENE GLYCOL 3350 (17GM) 1 DOSE PACK PO SCH (09:00)
[2018-12-08] MEDS: BUDESONIDE 0.5MG/2ML NEB HHN SCH ×2 (10:05→20:21)
[2018-12-08] MEDS: ALBUTEROL (0.083%) 2.5MG/3ML NEB HHN PRN ×4 (10:05→23:56)
[2018-12-08] MEDS: FUROSEMIDE 40MG TABLET PO SCH (10:19)
[2018-12-08] MEDS: POTASSIUM CHLORIDE 20MEQ TABLET SR PO SCH (10:19)
[2018-12-08] MEDS: LORATADINE 10MG TABLET PO SCH (10:19)
[2018-12-08] MEDS: DOXAZOSIN MESYLATE 4MG TABLET PO SCH ×2 (10:20→17:44)
[2018-12-08] MEDS: CARBAMIDE PEROXIDE 6.5% OTIC SOLN 15ML EACH EAR SCH ×2 (10:29→17:44)
[2018-12-08] MEDS: HYDROCORTISONE 1% CREAM 30GM TOP SCH ×3 (10:30→17:37)
[2018-12-08 12:00] VITALS: BP_SYST 138; BP_SYST 152; BP_DIAS 82; BP_DIAS 96
[2018-12-08] MEDS: HEPARIN 5000 UNITS/ML VIAL SUBCUT SCH ×2 (13:19→21:29)
[2018-12-08 16:00] VITALS: BP 132/72
[2018-12-08 20:00] VITALS: BP 144/90
[2018-12-08 20:29] LABS: BASOPHILS % 0.7 % (0.0-2.0); EOSINOPHILS % 3.9 % (0.0-5.0); HEMATOCRIT. 25.7 % (42.0-52.0); HEMOGLOBIN. 8.5 g/dL (14.0-18.0); LYMPHOCYTES % 14.1 % (20.0-50.0); MEAN CORPUSCULAR HEMOGLOBIN 30.2 pg (28.0-32.0); MEAN CORPUSCULAR VOLUME 90.7 fL (80.0-94.0); MEAN PLATELET VOLUME 9.5 fl (7.4-10.4); MONOCYTES % 8.2 % (2.0-8.0); NEUTROPHILS % 73.1 % (40.0-76.0); PLATELET 165 x1000/uL (130-400); RED BLOOD CELL COUNT 2.83 mill/uL (4.7-6.1)
[2018-12-08] MEDS: FAMOTIDINE 20MG TABLET PO SCH (21:28)
[2018-12-08] MEDS: ATORVASTATIN CALCIUM 40MG TABLET PO SCH (21:28)
[2018-12-08] MEDS: MONTELUKAST SODIUM 10MG TABLET PO SCH (21:28)
[2018-12-09] VITALS: BP 132/87
[2018-12-09] MEDS: BLOOD SUGAR DIAGNOSTIC STRIP TEST SCH ×2 (00:32→06:06)
[2018-12-09] MEDS: HYDRALAZINE HCL 100MG TABLET PO SCH ×3 (00:35→12:00)
[2018-12-09] MEDS: CLONIDINE 0.3MG TABLET PO SCH ×3 (00:35→12:00)
[2018-12-09] MEDS: METOCLOPRAMIDE HCL 5MG TABLET PO SCH ×2 (00:35→06:10)
[2018-12-09 04:00] VITALS: BP 147/81
[2018-12-09] MEDS: INSULIN LISPRO 100 UNITS/ML SUBCUT SCH ×2 (06:00)
[2018-12-09] MEDS: LACTULOSE 20G/30ML UDC PO SCH (06:00)
[2018-12-09] MEDS: VERAPAMIL HCL 120MG TABLET PO SCH (06:11)
[2018-12-09] MEDS: HEPARIN 5000 UNITS/ML VIAL SUBCUT SCH (06:12)
[2018-12-09 07:28] LABS: BASOPHILS % 0.8 % (0.0-2.0); EOSINOPHILS % 3.5 % (0.0-5.0); HEMATOCRIT. 25.7 % (42.0-52.0); HEMOGLOBIN. 8.6 g/dL (14.0-18.0); LYMPHOCYTES % 8.3 % (20.0-50.0); MEAN CORPUSCULAR HEMOGLOBIN 30.2 pg (28.0-32.0); MEAN CORPUSCULAR VOLUME 90.4 fL (80.0-94.0); MEAN PLATELET VOLUME 9.1 fl (7.4-10.4); MONOCYTES % 7.5 % (2.0-8.0); NEUTROPHILS % 79.9 % (40.0-76.0); PLATELET 166 x1000/uL (130-400); RED BLOOD CELL COUNT 2.85 mill/uL (4.7-6.1); RED CELL DISTRIBUTION WIDTH 14.9 % (11.6-14.6)
[2018-12-09] MEDS: LORATADINE 10MG TABLET PO SCH (08:53)
[2018-12-09] MEDS: POTASSIUM CHLORIDE 20MEQ TABLET SR PO SCH (08:54)
[2018-12-09] MEDS: FUROSEMIDE 40MG TABLET PO SCH (08:55)
[2018-12-09] MEDS: BUDESONIDE 0.5MG/2ML NEB HHN SCH (08:58)
[2018-12-09] MEDS: ALBUTEROL (0.083%) 2.5MG/3ML NEB HHN PRN (09:01)
[2018-12-09] MEDS ORDERED: MONT10TA21 PO (09:02)
[2018-12-09] MEDS ORDERED: METO5TAB2 PO (09:02)
[2018-12-09] MEDS ORDERED: ASPI-1393 PO (09:02)
[2018-12-09] MEDS ORDERED: CLON0.3T4 PO (09:02)
[2018-12-09] MEDS ORDERED: FURO40TA5 PO (09:02)
[2018-12-09] MEDS ORDERED: DOXA4TAB2 PO (09:02)
[2018-12-09] MEDS ORDERED: ALBU18HF2 IH (09:02)
[2018-12-09] MEDS ORDERED: HYDR100T26 PO (09:02)
[2018-12-09] MEDS ORDERED: ALBU2.5V13 HHN (09:02)
[2018-12-09] MEDS ORDERED: PULM50 HHN (09:02)
[2018-12-09] MEDS ORDERED: CLAR10 PO (09:02)
[2018-12-09] MEDS ORDERED: VERA120T PO (09:02)
[2018-12-09] MEDS ORDERED: FAMO20TA8 PO (09:02)
[2018-12-09] MEDS ORDERED: POTA20TA82 PO (09:02)
[2018-12-09] MEDS ORDERED: LIP40 PO (09:02)
[2018-12-09] MEDS: HYDROCORTISONE 1% CREAM 30GM TOP SCH (09:04)
[2018-12-09] MEDS: CARBAMIDE PEROXIDE 6.5% OTIC SOLN 15ML EACH EAR SCH (09:04)
[2018-12-09] MEDS: POLYETHYLENE GLYCOL 3350 (17GM) 1 DOSE PACK PO SCH (09:04)
[2018-12-09] MEDS: DOXAZOSIN MESYLATE 4MG TABLET PO SCH (09:12)
== END 2018-12-09 15:15 | disposition home health service (06) | DRG 130 ==
LOC: ER 05:33 → MICUSO 06:08 → ENRESERV 08:12 → 8WST 11-28 04:56
PROVIDERS: ADMIT Internal Medicine; ATTEND Internal Medicine
PROC: 5A1955Z Respiratory Ventilation, Greater than 96 Consecutive Hours (ICD-10-PCS; principal; 2018-11-21)
PROC: 0BH17EZ Insertion of Endotracheal Airway into Trachea, Via Natural or Artificial Opening (ICD-10-PCS; 2018-11-21)
PROC: 02HV33Z Insertion of Infusion Device into Superior Vena Cava, Percutaneous Approach (ICD-10-PCS; 2018-11-22)
PROC: B548ZZA Ultrasonography of Superior Vena Cava, Guidance (ICD-10-PCS; 2018-11-22)
PROC: 4A10X4Z Monitoring of Central Nervous Electrical Activity, External Approach (ICD-10-PCS; 2018-12-01)
DX: J69.0 Pneumonitis due to inhalation of food and vomit (principal); N17.0 Acute kidney failure with tubular necrosis; I50.33 Acute on chronic diastolic (congestive) heart failure; G93.40 Encephalopathy, unspecified; J96.22 Acute and chronic respiratory failure with hypercapnia; E44.0 Moderate protein-calorie malnutrition; D69.6 Thrombocytopenia, unspecified; N18.3 Chronic kidney disease, stage 3 (moderate); R13.10 Dysphagia, unspecified; I27.20 Pulmonary hypertension, unspecified; E11.22 Type 2 diabetes mellitus with diabetic chronic kidney disease; E87.0 Hyperosmolality and hypernatremia; J44.0 Chronic obstructive pulmonary disease with (acute) lower respiratory infection; E87.2 Acidosis; J44.1 Chronic obstructive pulmonary disease with (acute) exacerbation; E66.2 Morbid (severe) obesity with alveolar hypoventilation; E83.39 Other disorders of phosphorus metabolism; D63.8 Anemia in other chronic diseases classified elsewhere; I13.0 Hypertensive heart and chronic kidney disease with heart failure and stage 1 through stage 4 chronic kidney disease, or unspecified chronic kidney disease; I16.1 Hypertensive emergency; E83.51 Hypocalcemia; F11.10 Opioid abuse, uncomplicated; E78.5 Hyperlipidemia, unspecified; L25.9 Unspecified contact dermatitis, unspecified cause; E78.1 Pure hyperglyceridemia; E87.6 Hypokalemia; F15.10 Other stimulant abuse, uncomplicated; F14.10 Cocaine abuse, uncomplicated; Z71.51 Drug abuse counseling and surveillance of drug abuser; Z93.0 Tracheostomy status; Z78.1 Physical restraint status; Z87.891 Personal history of nicotine dependence; Z92.21 Personal history of antineoplastic chemotherapy; Z79.899 Other long term (current) drug therapy; Z68.41 Body mass index [BMI] 40.0-44.9, adult; Z85.72 Personal history of non-Hodgkin lymphomas; I69.351 Hemiplegia and hemiparesis following cerebral infarction affecting right dominant side; Z79.82 Long term (current) use of aspirin
CPT/HCPCS: 36415; 36600; 71045; 71250; 74018; 76604; 76705; 76770; 76937; 80048; 80061; 80305; 80320; 81003; 82140; 82270; 82375; 82550; 82553; 82570; 82805; 82962; 83605; 83735; 83880; 84100; 84156; 84443; 84484; 87070; 92610; 93005; 93306; 93880; 93970; 94002; 94003; 94640; 94660; 95816; 97116; 97162; 97164; 97167; 97530; 99291; A6261; C1725; J0330; J0360; J1200; J1642; J1644; J1650; J1815; J1940; J2060; J2250; J2270; J2405; J2543; J2704; J2765; J2920; J2930; J3010; J3475; J3480; J3490; J7042; J7050; J7060; J7070; J7608; J7611; J7620; J7626; J8597; A4315; G0480

== ENCOUNTER 2019-03-24 08:18 | Inpatient (IN) | payer MEDICAID ==
[~2019-03-24] VITALS: Ht 190.5 cm; Wt 169.2 kg
[2019-03-24] VITALS (20 sets, daily range): BP systolic 167–197; BP diastolic 103–148
[~2019-03-24 08:18] MED LIST changes: +ALBU2.5V13 HHN; -ASPI-1393 PO; +ASPI-1497 PO; +CHOL100036 PO; +CLAR10 PO; -CLON0.2T12 PO; +CLON0.3T4 PO; -COR12 PO; -DILT120C88 PO; +DOXA4TAB2 PO; +DOXA4TAB3 PO; +ETOMIDATE 2MG/ML 10ML VIAL IV ONE; +FAMO20TA8 PO; +FLUT15.844 NS; -FLUT15.88 NS; +HYDR100T26 PO; -ISOS1TAB PO; -LOSA100T3 PO; +METO5TAB2 PO; +MONT10TA21 PO; +PULM50 HHN; +SODIUM CHLORIDE 0.9% 10ML VIAL ONE; +SUCCINYLCHOLINE CHLORIDE 200MG/10ML IV ONE; +VERA120T PO; +VERA240C2 PO
[2019-03-24] MEDS ORDERED: METHYLPREDNISOLONE SOD SUCC 125 MG/2 ML VIAL IV STA (08:20)
[2019-03-24] MEDS ORDERED: IPRATROPIUM BROMIDE (0.02%) 0.5MG/2.5ML NEB HHN STA (08:20)
[2019-03-24] MEDS ORDERED: MAGNESIUM 2 G PREMIX 50 ML IV STA (08:20)
[2019-03-24] MEDS ORDERED: ALBUTEROL (0.083%) 2.5MG/3ML NEB HHN STA (08:20)
[2019-03-24] MEDS ORDERED: FUROSEMIDE 40MG/4ML VIAL IVP ONE (08:30)
[2019-03-24] MEDS ORDERED: ETOMIDATE 2MG/ML 10ML VIAL IV ONE (08:30)
[2019-03-24] MEDS ORDERED: LORAZEPAM 2MG/ML CPJ IV ONE (08:30)
[2019-03-24] MEDS ORDERED: PROPOFOL 10MG/ML 100ML 100 ML IV ONE (08:30)
[2019-03-24] MEDS ORDERED: VECURONIUM BROMIDE 10 MG/VIAL IV ONE (08:30)
[2019-03-24] MEDS ORDERED: SUCCINYLCHOLINE CHLORIDE 200MG/10ML IV ONE (08:30)
[2019-03-24 08:47] LABS: BASOPHILS % 1.3 % (0.0-2.0); EOSINOPHILS % 3.4 % (0.0-5.0); HEMATOCRIT. 35.3 % (42.0-52.0); HEMOGLOBIN. 11.4 g/dL (14.0-18.0); LYMPHOCYTES % 25.6 % (20.0-50.0); MEAN CORPUSCULAR HEMOGLOBIN 30.1 pg (28.0-32.0); MEAN CORPUSCULAR VOLUME 93.1 fL (80.0-94.0); MEAN PLATELET VOLUME 9.6 fl (7.4-10.4); MONOCYTES % 8.9 % (2.0-8.0); NEUTROPHILS % 60.8 % (40.0-76.0); PLATELET 279 x1000/uL (130-400); RED BLOOD CELL COUNT 3.79 mill/uL (4.7-6.1); RED CELL DISTRIBUTION WIDTH 15.5 % (11.6-14.6)
[2019-03-24 08:49] LABS: CHLORIDE 106 mEq/L (98-107); PROTHROMBIN TIME 10.1 sec (9.6-11.0)
[2019-03-24 08:52] LABS: ETHANOL BLOOD < 10 mg/dL
[2019-03-24] MEDS ORDERED: SODIUM CHLORIDE 0.9% 1000ML BAG (SEPSIS BOLUS) IV ONE (09:15)
[2019-03-24] MEDS ORDERED: LEVOFLOXACIN 500MG PREMIX 100 ML IV ONE (09:15)
[2019-03-24] MEDS ORDERED: FUROSEMIDE 20MG/2ML VIAL IVP ONE (09:15)
[2019-03-24] MEDS ORDERED: PIPERACILLIN/TAZ 3.375G PREMIX 50 ML IV ONE (09:15)
[2019-03-24 11:07] LABS: CLARITY URINE TURBID (CLEAR); COLOR URINE YELLOW (YELLOW); KETONES URINE NEGATIVE (NEGATIVE); LEUKOCYTE ESTERASE URINE NEGATIVE (NEGATIVE); NITRITE URINE NEGATIVE (NEGATIVE); OCCULT BLOOD URINE TRACE (NEGATIVE); PH URINE 6.5 (4.5-8.0); PROTEIN URINE 4+ (NEGATIVE); SPECIFIC GRAVITY URINE 1.019 (1.005-1.030); UROBILINOGEN URINE 0.2 E.U./dL (0.2-1.0)
[2019-03-24 11:11] LABS: BG BASE EXCESS -1.1 mmol/L (-2.0-2.0); BG CARBOXYHEMOGLOBIN 0.3 % (0.5-1.5); BG DEOXYHEMOGLOBIN 3.4 % (0.0-5.0); BG FRACTION INSPIRED OXYGEN 75; BG HCO3 ACT 26.2 mmol/L (22.0-26.0); BG METHEMOGLOBIN 0.3 % (0.0-1.5); BG OXYGEN SATURATION 96.6 % (92.0-98.5); BG PCO2 56.8 mmHg (35.0-45.0); BG PH 7.282 (7.350-7.450); BG PO2 104.3 mmHg (75.0-100.0); BG SAMPLE SITE RIGHT RADIAL; BG TIDAL VOLUME(mL) 650 mL; BG TOTAL HEMOGLOBIN 10.6 g/dL (12.0-18.0); BG VENT MODE VENT - A/C; BG VENT RATE 16 set
[2019-03-24] MEDS ORDERED: PIPERACILLIN/TAZ 3.375G PREMIX 50 ML IV SCH (11:30)
[2019-03-24] MEDS ORDERED: LEVOFLOXACIN 500MG PREMIX 100 ML IV SCH (11:30)
[2019-03-24] MEDS ORDERED: ONDANSETRON HCL 4MG/2ML INJ IV PRN (11:30)
[2019-03-24 11:43] LABS: *AMPHETAMINES SCREEN URINE NEGATIVE (NEGATIVE); *BARBITURATES SCREEN URINE NEGATIVE (NEGATIVE)
[2019-03-24 11:44] LABS: *BENZODIAZEPINES SCREEN URINE NEGATIVE (NEGATIVE); *COCAINE SCREEN URINE PRESUMTIVE POSITIVE (NEGATIVE); METHADONE URINE SCREEN NEGATIVE (NEGATIVE); OPIATES URINE SCREEN NEGATIVE (NEGATIVE); PHENCYCLIDINE URINE SCREEN NEGATIVE (NEGATIVE)
[2019-03-24 11:50] LABS: CANNABINOID URINE SCREEN NEGATIVE (NEGATIVE)
[2019-03-24] MEDS ORDERED: IPRATROPIUM/ALBUTEROL 0.5-3(2.5)MG/3ML NEB HHN PRN (12:30)
[2019-03-24] MEDS ORDERED: MIDAZOLAM HCL 50 MG in DEXTROSE 5% WATER 40 ML IV PRN (12:30)
[2019-03-24] MEDS ORDERED: FENTANYL CITRATE/PF 500 MCG in SODIUM CHLORIDE 0.9% 40 ML IV PRN (12:30)
[2019-03-24 12:34] LABS: PHOSPHORUS 5.4 mg/dL (2.5-4.9)
[2019-03-24] MEDS: FENTANYL CITRATE/PF 500 MCG in SODIUM CHLORIDE 0.9% 40 ML IV PRN ×2 (14:37→23:59)
[2019-03-24] MEDS: MIDAZOLAM HCL 50 MG in DEXTROSE 5% WATER 40 ML IV PRN ×2 (14:39→21:01)
[2019-03-24] MEDS ORDERED: PROPOFOL 10MG/ML 100ML 100 ML IV SCH (15:30)
[2019-03-24 18:49] LABS: CREATINE KINASE MB FRACTION 1.2 ng/mL (0.5-3.6)
[2019-03-24] MEDS: ENOXAPARIN 40MG/0.4ML SYR SUBCUT SCH (20:59)
[2019-03-24] MEDS: CLONIDINE 0.2MG TABLET PO PRN (21:49)
[2019-03-24] MEDS: PIPERACILLIN/TAZOBACTAM 3.375 G in DEXT 5% WATER 100 ML IV SCH (21:49)
[2019-03-25] VITALS (93 sets, daily range): BP systolic 123–189; BP diastolic 53–123
[2019-03-25 00:32] LABS: CREATINE KINASE MB FRACTION 1.3 ng/mL (0.5-3.6)
[2019-03-25] MEDS: HYDRALAZINE 20MG/ML VIAL IV PRN ×3 (02:08→16:36)
[2019-03-25] MEDS: MIDAZOLAM HCL 50 MG in DEXTROSE 5% WATER 40 ML IV PRN ×5 (02:14→22:42)
[2019-03-25] MEDS: PIPERACILLIN/TAZOBACTAM 3.375 G in DEXT 5% WATER 100 ML IV SCH ×4 (03:58→21:23)
[2019-03-25 05:11] LABS: HEMATOCRIT. 30.4 % (42.0-52.0); HEMOGLOBIN. 10.2 g/dL (14.0-18.0); MEAN CORPUSCULAR HEMOGLOBIN 29.8 pg (28.0-32.0); MEAN CORPUSCULAR VOLUME 88.8 fL (80.0-94.0); MEAN PLATELET VOLUME 9.5 fl (7.4-10.4); PLATELET 213 x1000/uL (130-400); RED BLOOD CELL COUNT 3.43 mill/uL (4.7-6.1); RED CELL DISTRIBUTION WIDTH 15.4 % (11.6-14.6)
[2019-03-25 05:37] LABS: CHLORIDE 107 mEq/L (98-107)
[2019-03-25 05:44] LABS: LDL CHOLESTEROL 124 mg/dL (5-100)
[2019-03-25 05:45] LABS: HDL CHOLESTEROL 53 mg/dL (40-59)
[2019-03-25] MEDS ORDERED: CARV25TA47 PO (06:16)
[2019-03-25] MEDS ORDERED: TOPUD PO (06:16)
[2019-03-25] MEDS: FENTANYL CITRATE/PF 500 MCG in SODIUM CHLORIDE 0.9% 40 ML IV PRN ×3 (06:51→18:38)
[2019-03-25] MEDS ORDERED: POTASSIUM CHLORIDE 20MEQ/PACKET PO NR (07:00)
[2019-03-25] MEDS: BLOOD SUGAR DIAGNOSTIC STRIP TEST SCH ×3 (07:30→19:30)
[2019-03-25] MEDS ORDERED: DEXTROSE 50% WATER 50ML SYRINGE IV PRN (07:30)
[2019-03-25] MEDS: INSULIN LISPRO 100 UNITS/ML SUBCUT SCH ×3 (07:40→18:20)
[2019-03-25] MEDS: IPRATROPIUM/ALBUTEROL 0.5-3(2.5)MG/3ML NEB HHN SCH ×4 (07:49→20:16)
[2019-03-25] MEDS: FUROSEMIDE 40MG/4ML VIAL IVP SCH (08:03)
[2019-03-25] MEDS: PANTOPRAZOLE SODIUM 40 MG/VIAL IV SCH (08:03)
[2019-03-25] MEDS: ENOXAPARIN 40MG/0.4ML SYR SUBCUT SCH ×2 (08:04→21:23)
[2019-03-25 09:09] LABS: BG BASE EXCESS -1.3 mmol/L (-2.0-2.0); BG CARBOXYHEMOGLOBIN 0.2 % (0.5-1.5); BG DEOXYHEMOGLOBIN 6.7 % (0.0-5.0); BG FRACTION INSPIRED OXYGEN 30; BG HCO3 ACT 24.3 mmol/L (22.0-26.0); BG METHEMOGLOBIN 0.3 % (0.0-1.5); BG OXYGEN SATURATION 93.3 % (92.0-98.5); BG OXYHEMOGLOBIN 92.8 % (94.0-97.0); BG PCO2 44.8 mmHg (35.0-45.0); BG PH 7.353 (7.350-7.450); BG PO2 71.7 mmHg (75.0-100.0); BG SAMPLE SITE RIGHT RADIAL; BG TIDAL VOLUME(mL) 600 mL; BG TOTAL HEMOGLOBIN 10.7 g/dL (12.0-18.0); BG VENT MODE VENT - A/C; BG VENT RATE 20 set
[2019-03-25] MEDS: DOXAZOSIN MESYLATE 4MG TABLET PO SCH ×2 (09:35→21:23)
[2019-03-25 09:37] LABS: CREATINE KINASE 54 IU/L (39-308)
[2019-03-25] MEDS: METHYLPREDNISOLONE SOD SUCC 125 MG/2 ML VIAL IV SCH ×2 (11:11→18:33)
[2019-03-25] MEDS ORDERED: VERAPAMIL HCL 120MG TABLET PO SCH (14:00)
[2019-03-25] MEDS: HYDRALAZINE HCL 100MG TABLET PO SCH ×2 (14:12→21:24)
[2019-03-25] MEDS: VERAPAMIL HCL 120MG TABLET PO SCH ×2 (14:13→18:33)
[2019-03-25] MEDS: ISOSORBIDE DINITRATE 20MG TABLET PO SCH ×2 (16:19→21:24)
[2019-03-25] MEDS: DIPHENHYDRAMINE 50MG/ML VIAL IV PRN (16:31)
[2019-03-26] VITALS (77 sets, daily range): BP systolic 138–175; BP diastolic 71–113
[2019-03-26] MEDS ORDERED: INSULIN LISPRO 100 UNITS/ML SUBCUT SCH
[2019-03-26] MEDS: VERAPAMIL HCL 120MG TABLET PO SCH ×4 (00:04→17:52)
[2019-03-26] MEDS: DIPHENHYDRAMINE 50MG/ML VIAL IV PRN ×4 (00:05→14:59)
[2019-03-26] MEDS: FENTANYL CITRATE/PF 500 MCG in SODIUM CHLORIDE 0.9% 40 ML IV PRN ×5 (00:21→22:56)
[2019-03-26] MEDS: IPRATROPIUM/ALBUTEROL 0.5-3(2.5)MG/3ML NEB HHN SCH ×6 (00:28→20:12)
[2019-03-26] MEDS: BLOOD SUGAR DIAGNOSTIC STRIP TEST SCH ×4 (01:30→17:53)
[2019-03-26] MEDS: METHYLPREDNISOLONE SOD SUCC 125 MG/2 ML VIAL IV SCH ×3 (02:09→17:52)
[2019-03-26 02:51] LABS: PLATELET ESTIMATE NORMAL
[2019-03-26] MEDS: ISOSORBIDE DINITRATE 20MG TABLET PO SCH ×3 (05:27→17:52)
[2019-03-26] MEDS: HYDRALAZINE HCL 100MG TABLET PO SCH ×3 (05:27→21:11)
[2019-03-26] MEDS: INSULIN LISPRO 100 UNITS/ML SUBCUT SCH ×3 (06:00→17:53)
[2019-03-26] MEDS: PIPERACILLIN/TAZOBACTAM 3.375 G in DEXT 5% WATER 100 ML IV SCH ×4 (06:33→21:10)
[2019-03-26] MEDS: MIDAZOLAM HCL 50 MG in DEXTROSE 5% WATER 40 ML IV PRN ×5 (06:34→22:30)
[2019-03-26 06:39] LABS: HEMOGLOBIN. 9.8 g/dL (14.0-18.0); MEAN CORPUSCULAR HEMOGLOBIN 29.9 pg (28.0-32.0); MEAN CORPUSCULAR VOLUME 88.6 fL (80.0-94.0); MEAN PLATELET VOLUME 9.5 fl (7.4-10.4); PLATELET 227 x1000/uL (130-400); RED BLOOD CELL COUNT 3.27 mill/uL (4.7-6.1); RED CELL DISTRIBUTION WIDTH 15.9 % (11.6-14.6)
[2019-03-26 06:44] LABS: PHOSPHORUS 4.9 mg/dL (2.5-4.9)
[2019-03-26 06:51] LABS: HEPATITIS B SURFACE ANTIGEN NEGATIVE
[2019-03-26] MEDS: FUROSEMIDE 40MG/4ML VIAL IVP SCH (09:23)
[2019-03-26] MEDS: ENOXAPARIN 40MG/0.4ML SYR SUBCUT SCH ×2 (09:24→21:10)
[2019-03-26] MEDS: PANTOPRAZOLE SODIUM 40 MG/VIAL IV SCH (09:24)
[2019-03-26] MEDS: DOXAZOSIN MESYLATE 4MG TABLET PO SCH ×2 (09:24→21:11)
[2019-03-26 10:02] LABS: PLATELET ESTIMATE NORMAL
[2019-03-26] MEDS ORDERED: POTASSIUM CHLORIDE INJ 40 MEQ in DEXT 5% WATER 500 ML IV NR (10:30)
[2019-03-26] MEDS: LORAZEPAM 2MG/ML CPJ IV PRN ×2 (13:43→17:52)
[2019-03-26] MEDS ORDERED: LORAZEPAM 2MG/ML CPJ IM PRN (13:45)
[2019-03-26 14:14] LABS: BG BASE EXCESS 1.6 mmol/L (-2.0-2.0); BG CARBOXYHEMOGLOBIN 0.3 % (0.5-1.5); BG DEOXYHEMOGLOBIN 7.4 % (0.0-5.0); BG FRACTION INSPIRED OXYGEN 30; BG HCO3 ACT 27.4 mmol/L (22.0-26.0); BG METHEMOGLOBIN 0.1 % (0.0-1.5); BG OXYGEN SATURATION 92.6 % (92.0-98.5); BG OXYHEMOGLOBIN 92.2 % (94.0-97.0); BG PCO2 48.3 mmHg (35.0-45.0); BG PH 7.371 (7.350-7.450); BG PO2 67.9 mmHg (75.0-100.0); BG SAMPLE SITE RIGHT RADIAL; BG TIDAL VOLUME(mL) 600 mL; BG TOTAL HEMOGLOBIN 10.1 g/dL (12.0-18.0); BG VENT MODE VENT - A/C; BG VENT RATE 20 set
[2019-03-26] MEDS: CLONIDINE 0.2MG TABLET PO SCH ×2 (14:59→21:10)
[2019-03-27] VITALS (78 sets, daily range): BP systolic 129–178; BP diastolic 77–126
[2019-03-27] MEDS: INSULIN LISPRO 100 UNITS/ML SUBCUT SCH ×5 (00:04→23:36)
[2019-03-27] MEDS: VERAPAMIL HCL 120MG TABLET PO SCH ×5 (00:04→23:35)
[2019-03-27] MEDS: BLOOD SUGAR DIAGNOSTIC STRIP TEST SCH ×5 (00:05→23:35)
[2019-03-27] MEDS: IPRATROPIUM/ALBUTEROL 0.5-3(2.5)MG/3ML NEB HHN SCH ×6 (00:16→20:59)
[2019-03-27] MEDS: DIPHENHYDRAMINE 50MG/ML VIAL IV PRN ×3 (00:44→22:44)
[2019-03-27] MEDS: METHYLPREDNISOLONE SOD SUCC 125 MG/2 ML VIAL IV SCH ×3 (03:03→17:22)
[2019-03-27] MEDS: PIPERACILLIN/TAZOBACTAM 3.375 G in DEXT 5% WATER 100 ML IV SCH ×4 (03:03→22:32)
[2019-03-27] MEDS: MIDAZOLAM HCL 50 MG in DEXTROSE 5% WATER 40 ML IV PRN ×3 (03:53→22:44)
[2019-03-27] MEDS: FENTANYL CITRATE/PF 500 MCG in SODIUM CHLORIDE 0.9% 40 ML IV PRN ×2 (04:38→09:18)
[2019-03-27] MEDS: CLONIDINE 0.2MG TABLET PO SCH ×3 (05:34→22:35)
[2019-03-27] MEDS: HYDRALAZINE HCL 100MG TABLET PO SCH ×3 (05:34→22:32)
[2019-03-27 06:02] LABS: HEMATOCRIT. 29.2 % (42.0-52.0); HEMOGLOBIN. 9.8 g/dL (14.0-18.0); MEAN CORPUSCULAR HEMOGLOBIN 30.1 pg (28.0-32.0); MEAN CORPUSCULAR VOLUME 89.1 fL (80.0-94.0); MEAN PLATELET VOLUME 9.5 fl (7.4-10.4); PLATELET 233 x1000/uL (130-400); RED BLOOD CELL COUNT 3.27 mill/uL (4.7-6.1); RED CELL DISTRIBUTION WIDTH 15.8 % (11.6-14.6)
[2019-03-27 08:26] LABS: BG BASE EXCESS 0.7 mmol/L (-2.0-2.0); BG CARBOXYHEMOGLOBIN 0.3 % (0.5-1.5); BG DEOXYHEMOGLOBIN 4.1 % (0.0-5.0); BG FRACTION INSPIRED OXYGEN 40; BG HCO3 ACT 25.8 mmol/L (22.0-26.0); BG METHEMOGLOBIN 0.3 % (0.0-1.5); BG OXYGEN SATURATION 95.9 % (92.0-98.5); BG OXYHEMOGLOBIN 95.3 % (94.0-97.0); BG PCO2 43.4 mmHg (35.0-45.0); BG PH 7.392 (7.350-7.450); BG PO2 87.2 mmHg (75.0-100.0); BG SAMPLE SITE RIGHT RADIAL; BG TIDAL VOLUME(mL) 600 mL; BG TOTAL HEMOGLOBIN 10.4 g/dL (12.0-18.0); BG VENT MODE VENT - A/C; BG VENT RATE 20 set
[2019-03-27] MEDS: FUROSEMIDE 40MG/4ML VIAL IVP SCH ×2 (08:44→17:20)
[2019-03-27] MEDS: DOXAZOSIN MESYLATE 4MG TABLET PO SCH ×2 (09:02→20:19)
[2019-03-27] MEDS: ISOSORBIDE DINITRATE 20MG TABLET PO SCH ×3 (09:02→17:21)
[2019-03-27] MEDS: PANTOPRAZOLE SODIUM 40 MG/VIAL IV SCH (09:03)
[2019-03-27] MEDS: ENOXAPARIN 40MG/0.4ML SYR SUBCUT SCH ×2 (09:03→20:18)
[2019-03-27 11:27] LABS: PLATELET ESTIMATE NORMAL
[2019-03-27 12:03] LABS: BG BASE EXCESS -0.6 mmol/L (-2.0-2.0); BG CARBOXYHEMOGLOBIN 0.3 % (0.5-1.5); BG DEOXYHEMOGLOBIN 3.9 % (0.0-5.0); BG FRACTION INSPIRED OXYGEN 40; BG HCO3 ACT 24.9 mmol/L (22.0-26.0); BG METHEMOGLOBIN 0.3 % (0.0-1.5); BG OXYGEN SATURATION 96.1 % (92.0-98.5); BG OXYHEMOGLOBIN 95.5 % (94.0-97.0); BG PCO2 44.5 mmHg (35.0-45.0); BG PH 7.365 (7.350-7.450); BG PO2 92.8 mmHg (75.0-100.0); BG PRESSURE SUPPORT 10; BG SAMPLE SITE RIGHT RADIAL; BG TOTAL HEMOGLOBIN 10.4 g/dL (12.0-18.0); BG VENT MODE VENT - CPAP
[2019-03-27] MEDS ORDERED: POTASSIUM CHLORIDE INJ 40 MEQ in DEXT 5% WATER 500 ML IV NR ×2 (12:30→20:00)
[2019-03-27] MEDS ORDERED: LIDOCAINE HCL/PF 1% 2ML VIAL ONE (12:52)
[2019-03-27 13:07] LABS: HIV SCREEN 4G Non Reactive (Non Reactive)
[2019-03-27 14:45] LABS: BG BASE EXCESS -0.6 mmol/L (-2.0-2.0); BG CARBOXYHEMOGLOBIN 0.3 % (0.5-1.5); BG CPAP (cmH2O) 0 cm(H2O); BG DEOXYHEMOGLOBIN 4.8 % (0.0-5.0); BG HCO3 ACT 25.2 mmol/L (22.0-26.0); BG METHEMOGLOBIN 0.1 % (0.0-1.5); BG OXYGEN SATURATION 95.2 % (92.0-98.5); BG OXYHEMOGLOBIN 94.8 % (94.0-97.0); BG PH 7.348 (7.350-7.450); BG PO2 84.9 mmHg (75.0-100.0); BG SAMPLE SITE RIGHT RADIAL; BG TOTAL HEMOGLOBIN 10.4 g/dL (12.0-18.0); BG VENT MODE VENT - CPAP
[2019-03-28] VITALS (67 sets, daily range): BP systolic 141–180; BP diastolic 43–130
[2019-03-28] MEDS: FENTANYL CITRATE/PF 500 MCG in SODIUM CHLORIDE 0.9% 40 ML IV PRN ×2 (00:26→06:51)
[2019-03-28] MEDS: IPRATROPIUM/ALBUTEROL 0.5-3(2.5)MG/3ML NEB HHN SCH ×6 (00:40→20:19)
[2019-03-28] MEDS: METHYLPREDNISOLONE SOD SUCC 125 MG/2 ML VIAL IV SCH ×2 (01:49→09:03)
[2019-03-28] MEDS: MIDAZOLAM HCL 50 MG in DEXTROSE 5% WATER 40 ML IV PRN (04:52)
[2019-03-28] MEDS: PIPERACILLIN/TAZOBACTAM 3.375 G in DEXT 5% WATER 100 ML IV SCH ×4 (04:53→22:34)
[2019-03-28] MEDS: VERAPAMIL HCL 120MG TABLET PO SCH ×3 (05:42→17:01)
[2019-03-28] MEDS: CLONIDINE 0.2MG TABLET PO SCH ×3 (05:42→22:21)
[2019-03-28] MEDS: HYDRALAZINE HCL 100MG TABLET PO SCH ×3 (05:43→22:20)
[2019-03-28] MEDS: INSULIN LISPRO 100 UNITS/ML SUBCUT SCH ×3 (05:43→17:01)
[2019-03-28] MEDS: BLOOD SUGAR DIAGNOSTIC STRIP TEST SCH ×3 (05:43→17:01)
[2019-03-28 05:55] LABS: HEMATOCRIT. 29.8 % (42.0-52.0); MEAN CORPUSCULAR HEMOGLOBIN 29.8 pg (28.0-32.0); MEAN CORPUSCULAR VOLUME 89.2 fL (80.0-94.0); MEAN PLATELET VOLUME 9.3 fl (7.4-10.4); PLATELET 234 x1000/uL (130-400); RED BLOOD CELL COUNT 3.34 mill/uL (4.7-6.1); RED CELL DISTRIBUTION WIDTH 15.9 % (11.6-14.6)
[2019-03-28] MEDS ORDERED: POTASSIUM CHLORIDE 20MEQ/PACKET PO NR (07:30)
[2019-03-28] MEDS ORDERED: POTASSIUM CHLORIDE 20MEQ TABLET SR PO NR (07:30)
[2019-03-28] MEDS: PANTOPRAZOLE SODIUM 40 MG/VIAL IV SCH (08:23)
[2019-03-28] MEDS: FUROSEMIDE 40MG/4ML VIAL IVP SCH (08:23)
[2019-03-28] MEDS: DOXAZOSIN MESYLATE 4MG TABLET PO SCH ×2 (08:23→22:20)
[2019-03-28] MEDS: ENOXAPARIN 40MG/0.4ML SYR SUBCUT SCH ×2 (08:24→22:21)
[2019-03-28 08:53] LABS: PLATELET ESTIMATE NORMAL
[2019-03-28] MEDS: ISOSORBIDE DINITRATE 10MG TABLET PO SCH ×3 (09:27→17:01)
[2019-03-28 12:56] LABS: BG BASE EXCESS -1.5 mmol/L (-2.0-2.0); BG CARBOXYHEMOGLOBIN 0.3 % (0.5-1.5); BG DEOXYHEMOGLOBIN 3.3 % (0.0-5.0); BG FRACTION INSPIRED OXYGEN 40; BG HCO3 ACT 24.4 mmol/L (22.0-26.0); BG METHEMOGLOBIN 0.1 % (0.0-1.5); BG OXYGEN SATURATION 96.7 % (92.0-98.5); BG OXYHEMOGLOBIN 96.3 % (94.0-97.0); BG PCO2 46.3 mmHg (35.0-45.0); BG PO2 103.7 mmHg (75.0-100.0); BG PRESSURE SUPPORT 8; BG SAMPLE SITE RIGHT RADIAL; BG TOTAL HEMOGLOBIN 10.6 g/dL (12.0-18.0); BG VENT MODE VENT - CPAP
[2019-03-28] MEDS ORDERED: ISOSORBIDE DINITRATE 10MG TABLET PO SCH (13:00)
[2019-03-28] MEDS: METHYLPREDNISOLONE SOD SUCC 40 MG/ML VIAL IV SCH (17:00)
[2019-03-28] MEDS: DIPHENHYDRAMINE 50MG/ML VIAL IV PRN (22:19)
[2019-03-29] VITALS (42 sets, daily range): BP systolic 140–224; BP diastolic 68–122
[2019-03-29] MEDS: VERAPAMIL HCL 120MG TABLET PO SCH ×3 (00:12→12:03)
[2019-03-29] MEDS: IPRATROPIUM/ALBUTEROL 0.5-3(2.5)MG/3ML NEB HHN SCH ×6 (00:29→20:13)
[2019-03-29] MEDS ORDERED: HYDRALAZINE 20MG/ML VIAL IV NR (02:15)
[2019-03-29] MEDS: PIPERACILLIN/TAZOBACTAM 3.375 G in DEXT 5% WATER 100 ML IV SCH ×4 (04:16→21:31)
[2019-03-29] MEDS: CLONIDINE 0.2MG TABLET PO SCH ×3 (06:17→21:30)
[2019-03-29] MEDS: HYDRALAZINE HCL 100MG TABLET PO SCH ×3 (06:18→21:38)
[2019-03-29 06:32] LABS: HEMATOCRIT. 30.2 % (42.0-52.0); HEMOGLOBIN. 10.3 g/dL (14.0-18.0); MEAN CORPUSCULAR HEMOGLOBIN 30.3 pg (28.0-32.0); MEAN CORPUSCULAR VOLUME 88.9 fL (80.0-94.0); MEAN PLATELET VOLUME 9.3 fl (7.4-10.4); PLATELET 225 x1000/uL (130-400); RED CELL DISTRIBUTION WIDTH 15.7 % (11.6-14.6)
[2019-03-29] MEDS: INSULIN LISPRO 100 UNITS/ML SUBCUT SCH ×4 (07:50→22:07)
[2019-03-29] MEDS: BLOOD SUGAR DIAGNOSTIC STRIP TEST SCH ×4 (08:00→21:31)
[2019-03-29] MEDS: METHYLPREDNISOLONE SOD SUCC 40 MG/ML VIAL IV SCH ×2 (09:41→17:23)
[2019-03-29] MEDS: FUROSEMIDE 40MG/4ML VIAL IVP SCH (09:41)
[2019-03-29] MEDS: ENOXAPARIN 40MG/0.4ML SYR SUBCUT SCH ×2 (09:41→21:31)
[2019-03-29] MEDS: DOXAZOSIN MESYLATE 4MG TABLET PO SCH ×2 (09:42→21:30)
[2019-03-29] MEDS: POTASSIUM CHLORIDE 20MEQ/PACKET PO SCH (09:42)
[2019-03-29] MEDS: ISOSORBIDE DINITRATE 10MG TABLET PO SCH ×2 (09:42→13:04)
[2019-03-29] MEDS: PANTOPRAZOLE SODIUM 40 MG/VIAL IV SCH (12:02)
[2019-03-29 14:30] LABS: PLATELET ESTIMATE NORMAL
[2019-03-29] MEDS: BENZONATATE 100MG CAPSULE PO PRN ×2 (15:41→21:38)
[2019-03-29] MEDS: ACETAMINOPHEN 325MG TABLET PO PRN (15:42)
[2019-03-29 17:06] LABS: ANTI-NUCLEAR ANTIBODIES DIRECT Negative (Negative)
[2019-03-29] MEDS: HYDRALAZINE 20MG/ML VIAL IV PRN ×2 (18:11→21:57)
[2019-03-29] MEDS: DILTIAZEM HCL 120MG CAPSULE CD 24HR PO SCH (21:30)
[2019-03-30] VITALS (93 sets, daily range): BP systolic 134–194; BP diastolic 61–113
[2019-03-30] MEDS: NICARDIPINE 50 MG in SODIUM CHLORIDE 0.9% 230 ML IV PRN ×3 (00:06→18:09)
[2019-03-30] MEDS: IPRATROPIUM/ALBUTEROL 0.5-3(2.5)MG/3ML NEB HHN SCH ×6 (00:30→20:58)
[2019-03-30] MEDS: PIPERACILLIN/TAZOBACTAM 3.375 G in DEXT 5% WATER 100 ML IV SCH ×4 (05:57→22:41)
[2019-03-30] MEDS: CLONIDINE 0.2MG TABLET PO PRN ×2 (05:57→15:41)
[2019-03-30] MEDS: HYDRALAZINE HCL 100MG TABLET PO SCH ×3 (05:58→22:42)
[2019-03-30] MEDS: CLONIDINE 0.2MG TABLET PO SCH (06:00)
[2019-03-30 06:14] LABS: HEMATOCRIT. 30.8 % (42.0-52.0); HEMOGLOBIN. 10.6 g/dL (14.0-18.0); MEAN CORPUSCULAR HEMOGLOBIN 30.4 pg (28.0-32.0); MEAN CORPUSCULAR VOLUME 88.5 fL (80.0-94.0); MEAN PLATELET VOLUME 9.3 fl (7.4-10.4); PLATELET 233 x1000/uL (130-400); RED BLOOD CELL COUNT 3.48 mill/uL (4.7-6.1); RED CELL DISTRIBUTION WIDTH 15.5 % (11.6-14.6)
[2019-03-30 06:27] LABS: PHOSPHORUS 3.7 mg/dL (2.5-4.9)
[2019-03-30] MEDS: POTASSIUM CHLORIDE 20MEQ/PACKET PO SCH ×2 (08:11→16:06)
[2019-03-30] MEDS: BLOOD SUGAR DIAGNOSTIC STRIP TEST SCH ×4 (08:11→21:00)
[2019-03-30] MEDS: PANTOPRAZOLE SODIUM 40 MG/VIAL IV SCH (08:11)
[2019-03-30] MEDS: ENOXAPARIN 40MG/0.4ML SYR SUBCUT SCH ×2 (08:11→21:13)
[2019-03-30] MEDS: METHYLPREDNISOLONE SOD SUCC 40 MG/ML VIAL IV SCH ×2 (08:11→16:06)
[2019-03-30] MEDS: FUROSEMIDE 40MG/4ML VIAL IVP SCH (08:11)
[2019-03-30] MEDS: DOXAZOSIN MESYLATE 4MG TABLET PO SCH ×2 (08:12→21:11)
[2019-03-30] MEDS: DILTIAZEM HCL 120MG CAPSULE CD 24HR PO SCH ×2 (08:12→21:11)
[2019-03-30] MEDS: INSULIN LISPRO 100 UNITS/ML SUBCUT SCH ×4 (08:13→21:10)
[2019-03-30] MEDS ORDERED: MINOXIDIL 2.5MG TABLET PO SCH (10:00)
[2019-03-30 10:47] LABS: NUCLEATED RED BLOOD CELLS 1 /100 WBC; PLATELET ESTIMATE NORMAL
[2019-03-30] MEDS: CLONIDINE 0.3MG TABLET PO SCH ×2 (13:37→22:41)
[2019-03-30] MEDS ORDERED: LIDOCAINE HCL 1% 20ML VIAL (Pyxis) INJ ONE (13:47)
[2019-03-30] MEDS ORDERED: SODIUM BICARBONATE 4% (2.4MEQ) 5ML VIAL IV ONE (13:47)
[2019-03-30] MEDS: HYDRALAZINE 20MG/ML VIAL IV PRN (18:09)
[2019-03-31] VITALS (39 sets, daily range): BP systolic 139–189; BP diastolic 76–107
[2019-03-31] MEDS: IPRATROPIUM/ALBUTEROL 0.5-3(2.5)MG/3ML NEB HHN SCH ×6 (00:01→20:10)
[2019-03-31] MEDS: HYDRALAZINE 20MG/ML VIAL IV PRN ×2 (01:43→07:59)
[2019-03-31] MEDS: PIPERACILLIN/TAZOBACTAM 3.375 G in DEXT 5% WATER 100 ML IV SCH ×3 (03:57→18:19)
[2019-03-31] MEDS: HYDRALAZINE HCL 100MG TABLET PO SCH ×2 (05:46→13:03)
[2019-03-31] MEDS: CLONIDINE 0.3MG TABLET PO SCH ×2 (05:46→13:03)
[2019-03-31 06:14] LABS: HEMATOCRIT. 28.8 % (42.0-52.0); MEAN CORPUSCULAR HEMOGLOBIN 30.7 pg (28.0-32.0); MEAN CORPUSCULAR VOLUME 88.5 fL (80.0-94.0); MEAN PLATELET VOLUME 9.2 fl (7.4-10.4); PHOSPHORUS 3.3 mg/dL (2.5-4.9); PLATELET 204 x1000/uL (130-400); RED BLOOD CELL COUNT 3.25 mill/uL (4.7-6.1); RED CELL DISTRIBUTION WIDTH 15.9 % (11.6-14.6)
[2019-03-31] MEDS: BLOOD SUGAR DIAGNOSTIC STRIP TEST SCH ×4 (07:45→21:00)
[2019-03-31] MEDS: INSULIN LISPRO 100 UNITS/ML SUBCUT SCH ×3 (07:48→18:20)
[2019-03-31] MEDS: FUROSEMIDE 40MG/4ML VIAL IVP SCH (09:45)
[2019-03-31] MEDS: POTASSIUM CHLORIDE 20MEQ/PACKET PO SCH ×2 (09:45→18:21)
[2019-03-31] MEDS: PANTOPRAZOLE SODIUM 40 MG/VIAL IV SCH (09:46)
[2019-03-31] MEDS: METHYLPREDNISOLONE SOD SUCC 40 MG/ML VIAL IV SCH ×2 (09:46→18:19)
[2019-03-31] MEDS: MINOXIDIL 2.5MG TABLET PO SCH ×2 (09:46→18:19)
[2019-03-31] MEDS: DILTIAZEM HCL 120MG CAPSULE CD 24HR PO SCH (09:47)
[2019-03-31] MEDS: DOXAZOSIN MESYLATE 4MG TABLET PO SCH (09:47)
[2019-03-31] MEDS: ENOXAPARIN 40MG/0.4ML SYR SUBCUT SCH (09:51)
[2019-03-31] MEDS ORDERED: LIDOCAINE HCL 1% 20ML VIAL (Pyxis) INJ ONE (10:07)
[2019-03-31 11:13] LABS: PLATELET ESTIMATE NORMAL
[2019-03-31] MEDS: ACETYLCYSTEINE 100MG/ML 10% VIAL 4ML INH SCH (15:53)
[2019-03-31] MEDS: DIPHENHYDRAMINE 50MG/ML VIAL IV PRN (22:00)
[2019-03-31] MEDS: ACETAMINOPHEN 325MG TABLET PO PRN (22:00)
[2019-04-01] VITALS (13 sets, daily range): BP systolic 137–183; BP diastolic 65–101
[2019-04-01] MEDS: ACETYLCYSTEINE 100MG/ML 10% VIAL 4ML INH SCH ×3 (00:09→16:05)
[2019-04-01] MEDS: IPRATROPIUM/ALBUTEROL 0.5-3(2.5)MG/3ML NEB HHN SCH ×6 (00:09→21:34)
[2019-04-01] MEDS: DILTIAZEM HCL 120MG CAPSULE CD 24HR PO SCH ×3 (00:37→22:21)
[2019-04-01] MEDS: HYDRALAZINE HCL 100MG TABLET PO SCH ×4 (00:38→22:13)
[2019-04-01] MEDS: CLONIDINE 0.3MG TABLET PO SCH ×4 (00:38→22:24)
[2019-04-01] MEDS: DOXAZOSIN MESYLATE 4MG TABLET PO SCH ×3 (00:38→22:13)
[2019-04-01] MEDS: PIPERACILLIN/TAZOBACTAM 3.375 G in DEXT 5% WATER 100 ML IV SCH (00:39)
[2019-04-01] MEDS: ENOXAPARIN 40MG/0.4ML SYR SUBCUT SCH ×3 (00:39→22:21)
[2019-04-01] MEDS: INSULIN LISPRO 100 UNITS/ML SUBCUT SCH ×5 (00:41→22:29)
[2019-04-01] MEDS: ACETAMINOPHEN 325MG TABLET PO PRN (06:37)
[2019-04-01] MEDS: BLOOD SUGAR DIAGNOSTIC STRIP TEST SCH ×4 (07:10→21:26)
[2019-04-01 07:21] LABS: HEMATOCRIT. 29.7 % (42.0-52.0); HEMOGLOBIN. 10.2 g/dL (14.0-18.0); MEAN CORPUSCULAR HEMOGLOBIN 30.6 pg (28.0-32.0); MEAN CORPUSCULAR VOLUME 89.3 fL (80.0-94.0); MEAN PLATELET VOLUME 9.7 fl (7.4-10.4); PLATELET 210 x1000/uL (130-400); RED BLOOD CELL COUNT 3.32 mill/uL (4.7-6.1); RED CELL DISTRIBUTION WIDTH 15.5 % (11.6-14.6)
[2019-04-01] MEDS: METHYLPREDNISOLONE SOD SUCC 40 MG/ML VIAL IV SCH ×2 (09:17→17:19)
[2019-04-01] MEDS: POTASSIUM CHLORIDE 20MEQ/PACKET PO SCH ×2 (09:17→17:21)
[2019-04-01] MEDS: PANTOPRAZOLE SODIUM 40 MG/VIAL IV SCH (09:17)
[2019-04-01] MEDS: FUROSEMIDE 40MG/4ML VIAL IVP SCH (09:18)
[2019-04-01] MEDS: MINOXIDIL 2.5MG TABLET PO SCH ×2 (09:18→17:19)
[2019-04-01 14:11] LABS: PLATELET ESTIMATE NORMAL
[2019-04-02] VITALS (11 sets, daily range): BP systolic 128–168; BP diastolic 69–102
[2019-04-02] MEDS: ACETYLCYSTEINE 100MG/ML 10% VIAL 4ML INH SCH ×2 (01:05→17:05)
[2019-04-02] MEDS: IPRATROPIUM/ALBUTEROL 0.5-3(2.5)MG/3ML NEB HHN SCH ×6 (01:06→20:23)
[2019-04-02] MEDS: CLONIDINE 0.3MG TABLET PO SCH ×3 (05:33→22:46)
[2019-04-02] MEDS: HYDRALAZINE HCL 100MG TABLET PO SCH ×3 (05:34→22:46)
[2019-04-02] MEDS: BLOOD SUGAR DIAGNOSTIC STRIP TEST SCH ×4 (07:36→21:09)
[2019-04-02 07:55] LABS: HEMATOCRIT. 29.6 % (42.0-52.0); HEMOGLOBIN. 10.2 g/dL (14.0-18.0); MEAN CORPUSCULAR HEMOGLOBIN 30.9 pg (28.0-32.0); MEAN CORPUSCULAR VOLUME 89.1 fL (80.0-94.0); MEAN PLATELET VOLUME 9.3 fl (7.4-10.4); PLATELET 210 x1000/uL (130-400); RED BLOOD CELL COUNT 3.32 mill/uL (4.7-6.1); RED CELL DISTRIBUTION WIDTH 15.4 % (11.6-14.6)
[2019-04-02] MEDS: ENOXAPARIN 40MG/0.4ML SYR SUBCUT SCH ×2 (08:51→21:10)
[2019-04-02] MEDS: PANTOPRAZOLE SODIUM 40 MG/VIAL IV SCH (08:51)
[2019-04-02] MEDS: METHYLPREDNISOLONE SOD SUCC 40 MG/ML VIAL IV SCH ×2 (08:51→17:53)
[2019-04-02] MEDS: FUROSEMIDE 40MG/4ML VIAL IVP SCH (08:51)
[2019-04-02] MEDS: DILTIAZEM HCL 120MG CAPSULE CD 24HR PO SCH ×2 (08:52→21:08)
[2019-04-02] MEDS: DOXAZOSIN MESYLATE 4MG TABLET PO SCH ×2 (08:52→21:09)
[2019-04-02] MEDS: MINOXIDIL 2.5MG TABLET PO SCH ×2 (08:52→17:53)
[2019-04-02] MEDS: POTASSIUM CHLORIDE 20MEQ/PACKET PO SCH ×2 (08:52→17:53)
[2019-04-02] MEDS: INSULIN LISPRO 100 UNITS/ML SUBCUT SCH ×4 (08:54→21:27)
[2019-04-02] MEDS: POLYETHYLENE GLYCOL 3350 (17GM) 1 DOSE PACK PO SCH (11:32)
[2019-04-02] MEDS ORDERED: DILT120C88 PO ×2 (14:53→14:56)
[2019-04-02] MEDS ORDERED: P20 MT ×2 (14:53→14:56)
[2019-04-02] MEDS ORDERED: MINO2.5T19 PO ×2 (14:53→14:56)
[2019-04-02] MEDS ORDERED: CLON0.3T PO ×2 (14:53→14:56)
[2019-04-02] MEDS: MONTELUKAST SODIUM 10MG TABLET PO SCH (21:08)
[2019-04-03] VITALS (7 sets, daily range): BP systolic 123–155; BP diastolic 71–94
[2019-04-03] MEDS: IPRATROPIUM/ALBUTEROL 0.5-3(2.5)MG/3ML NEB HHN SCH ×6 (00:13→20:36)
[2019-04-03] MEDS: ACETYLCYSTEINE 100MG/ML 10% VIAL 4ML INH SCH ×3 (00:14→16:22)
[2019-04-03 03:20] LABS: PLATELET ESTIMATE NORMAL
[2019-04-03] MEDS: HYDRALAZINE HCL 100MG TABLET PO SCH ×3 (06:20→21:42)
[2019-04-03] MEDS: CLONIDINE 0.3MG TABLET PO SCH ×3 (06:20→21:42)
[2019-04-03] MEDS: BLOOD SUGAR DIAGNOSTIC STRIP TEST SCH ×4 (07:23→21:42)
[2019-04-03 07:29] LABS: HEMATOCRIT. 29.2 % (42.0-52.0); HEMOGLOBIN. 9.8 g/dL (14.0-18.0); MEAN CORPUSCULAR HEMOGLOBIN 30.1 pg (28.0-32.0); MEAN CORPUSCULAR VOLUME 89.3 fL (80.0-94.0); MEAN PLATELET VOLUME 9.4 fl (7.4-10.4); PLATELET 171 x1000/uL (130-400); RED BLOOD CELL COUNT 3.27 mill/uL (4.7-6.1); RED CELL DISTRIBUTION WIDTH 15.8 % (11.6-14.6)
[2019-04-03 07:49] LABS: PHOSPHORUS 4.2 mg/dL (2.5-4.9)
[2019-04-03] MEDS: FUROSEMIDE 40MG/4ML VIAL IVP SCH (08:59)
[2019-04-03] MEDS: PANTOPRAZOLE SODIUM 40 MG/VIAL IV SCH (08:59)
[2019-04-03] MEDS: MINOXIDIL 2.5MG TABLET PO SCH ×2 (09:00→17:43)
[2019-04-03] MEDS: POTASSIUM CHLORIDE 20MEQ/PACKET PO SCH ×2 (09:00→17:42)
[2019-04-03] MEDS: DOXAZOSIN MESYLATE 4MG TABLET PO SCH ×2 (09:00→21:42)
[2019-04-03] MEDS: METHYLPREDNISOLONE SOD SUCC 40 MG/ML VIAL IV SCH (09:00)
[2019-04-03] MEDS: POLYETHYLENE GLYCOL 3350 (17GM) 1 DOSE PACK PO SCH (09:00)
[2019-04-03] MEDS: INSULIN LISPRO 100 UNITS/ML SUBCUT SCH ×4 (09:01→21:40)
[2019-04-03] MEDS: ENOXAPARIN 40MG/0.4ML SYR SUBCUT SCH ×2 (09:02→21:42)
[2019-04-03] MEDS: DILTIAZEM HCL 120MG CAPSULE CD 24HR PO SCH ×2 (09:22→21:41)
[2019-04-03] MEDS: MONTELUKAST SODIUM 10MG TABLET PO SCH (21:41)
[2019-04-04] VITALS (7 sets, daily range): BP systolic 134–171; BP diastolic 62–101
[2019-04-04] MEDS: DIPHENHYDRAMINE 50MG/ML VIAL IV PRN ×2 (00:07→21:03)
[2019-04-04] MEDS: ACETAMINOPHEN 325MG TABLET PO PRN ×2 (00:08→21:03)
[2019-04-04] MEDS: IPRATROPIUM/ALBUTEROL 0.5-3(2.5)MG/3ML NEB HHN SCH ×6 (00:38→20:35)
[2019-04-04] MEDS: ACETYLCYSTEINE 100MG/ML 10% VIAL 4ML INH SCH ×3 (00:38→16:43)
[2019-04-04] MEDS: CLONIDINE 0.3MG TABLET PO SCH ×3 (05:34→22:10)
[2019-04-04] MEDS: HYDRALAZINE HCL 100MG TABLET PO SCH ×3 (05:34→22:10)
[2019-04-04 06:21] LABS: HEMATOCRIT. 29.3 % (42.0-52.0); HEMOGLOBIN. 9.9 g/dL (14.0-18.0); MEAN CORPUSCULAR VOLUME 89.3 fL (80.0-94.0); MEAN PLATELET VOLUME 9.8 fl (7.4-10.4); PLATELET 168 x1000/uL (130-400); RED BLOOD CELL COUNT 3.28 mill/uL (4.7-6.1); RED CELL DISTRIBUTION WIDTH 15.6 % (11.6-14.6)
[2019-04-04] MEDS: BLOOD SUGAR DIAGNOSTIC STRIP TEST SCH ×4 (07:27→21:03)
[2019-04-04] MEDS: MINOXIDIL 2.5MG TABLET PO SCH ×2 (09:17→19:02)
[2019-04-04] MEDS: ENOXAPARIN 40MG/0.4ML SYR SUBCUT SCH ×2 (09:17→20:53)
[2019-04-04] MEDS: FUROSEMIDE 40MG/4ML VIAL IVP SCH (09:18)
[2019-04-04] MEDS: PANTOPRAZOLE SODIUM 40 MG/VIAL IV SCH (09:18)
[2019-04-04] MEDS: DILTIAZEM HCL 120MG CAPSULE CD 24HR PO SCH ×2 (09:18→20:54)
[2019-04-04] MEDS: DOXAZOSIN MESYLATE 4MG TABLET PO SCH ×2 (09:19→20:54)
[2019-04-04] MEDS: PREDNISONE 20MG TABLET PO SCH ×2 (09:19→19:03)
[2019-04-04] MEDS: POLYETHYLENE GLYCOL 3350 (17GM) 1 DOSE PACK PO SCH (09:19)
[2019-04-04] MEDS: INSULIN LISPRO 100 UNITS/ML SUBCUT SCH ×4 (09:20→20:56)
[2019-04-04] MEDS: POTASSIUM CHLORIDE 20MEQ/PACKET PO SCH (09:30)
[2019-04-04] MEDS ORDERED: BISACODYL 5MG TABLET PO PRN (11:15)
[2019-04-04] MEDS ORDERED: DOCUSATE SODIUM 250MG CAPSULE PO PRN (11:15)
[2019-04-04] MEDS ORDERED: MAGNESIUM CITRATE 300ML SOLUTION PO SCH (12:00)
[2019-04-04 14:19] LABS: PLATELET ESTIMATE NORMAL
[2019-04-04 14:49] LABS: PLATELET ESTIMATE NORMAL
[2019-04-04] MEDS: MONTELUKAST SODIUM 10MG TABLET PO SCH (20:54)
[2019-04-05] VITALS: BP 154/93
[2019-04-05] MEDS: IPRATROPIUM/ALBUTEROL 0.5-3(2.5)MG/3ML NEB HHN SCH ×4 (00:37→13:05)
[2019-04-05] MEDS: ACETYLCYSTEINE 100MG/ML 10% VIAL 4ML INH SCH ×2 (00:38→09:10)
[2019-04-05 04:00] VITALS: BP 138/82
[2019-04-05] MEDS: CLONIDINE 0.3MG TABLET PO SCH ×2 (05:49→13:08)
[2019-04-05] MEDS: HYDRALAZINE HCL 100MG TABLET PO SCH ×2 (05:49→13:09)
[2019-04-05 05:54] LABS: HEMATOCRIT. 26.4 % (42.0-52.0); HEMOGLOBIN. 8.9 g/dL (14.0-18.0); MEAN CORPUSCULAR HEMOGLOBIN 30.2 pg (28.0-32.0); MEAN CORPUSCULAR VOLUME 89.3 fL (80.0-94.0); MEAN PLATELET VOLUME 9.8 fl (7.4-10.4); PLATELET 146 x1000/uL (130-400); RED BLOOD CELL COUNT 2.96 mill/uL (4.7-6.1); RED CELL DISTRIBUTION WIDTH 15.8 % (11.6-14.6)
[2019-04-05 08:00] VITALS: BP 144/80
[2019-04-05] MEDS: BLOOD SUGAR DIAGNOSTIC STRIP TEST SCH ×2 (08:23→12:50)
[2019-04-05] MEDS: POLYETHYLENE GLYCOL 3350 (17GM) 1 DOSE PACK PO SCH (08:48)
[2019-04-05] MEDS: DILTIAZEM HCL 120MG CAPSULE CD 24HR PO SCH (08:49)
[2019-04-05] MEDS: MINOXIDIL 2.5MG TABLET PO SCH (08:50)
[2019-04-05] MEDS: PREDNISONE 20MG TABLET PO SCH (08:50)
[2019-04-05] MEDS: DOXAZOSIN MESYLATE 4MG TABLET PO SCH (08:50)
[2019-04-05] MEDS: FUROSEMIDE 40MG/4ML VIAL IVP SCH (08:51)
[2019-04-05] MEDS: POTASSIUM CHLORIDE 20MEQ/PACKET PO SCH (08:51)
[2019-04-05] MEDS: ENOXAPARIN 40MG/0.4ML SYR SUBCUT SCH (08:51)
[2019-04-05] MEDS: PANTOPRAZOLE SODIUM 40 MG/VIAL IV SCH (08:51)
[2019-04-05] MEDS: INSULIN LISPRO 100 UNITS/ML SUBCUT SCH ×2 (08:52→13:10)
[2019-04-05 11:42] VITALS: BP 138/87
[2019-04-05 12:19] VITALS: BP 144/80
[2019-04-05 17:37] LABS: PLATELET ESTIMATE NORMAL
== END 2019-04-05 14:57 | disposition home health service (06) | DRG 720 ==
LOC: ER 08:18 → EDBEDREQ 09:12 → ENRESERV 18:23 → EDBD 19:34 → CVICU 19:34 → 5EST 03-31 08:10
PROVIDERS: ADMIT Internal Medicine; ATTEND Internal Medicine
PROC: 0BH17EZ Insertion of Endotracheal Airway into Trachea, Via Natural or Artificial Opening (ICD-10-PCS; principal; 2019-03-24)
PROC: 5A1955Z Respiratory Ventilation, Greater than 96 Consecutive Hours (ICD-10-PCS; 2019-03-24)
PROC: 5A09357 Assistance with Respiratory Ventilation, Less than 24 Consecutive Hours, Continuous Positive Airway Pressure (ICD-10-PCS; 2019-03-31)
PROC: 02HV33Z Insertion of Infusion Device into Superior Vena Cava, Percutaneous Approach (ICD-10-PCS; 2019-03-31)
PROC: B548ZZA Ultrasonography of Superior Vena Cava, Guidance (ICD-10-PCS; 2019-03-31)
DX: A41.9 Sepsis, unspecified organism (principal); J96.21 Acute and chronic respiratory failure with hypoxia; N17.0 Acute kidney failure with tubular necrosis; J69.0 Pneumonitis due to inhalation of food and vomit; I50.33 Acute on chronic diastolic (congestive) heart failure; E87.2 Acidosis; A59.9 Trichomoniasis, unspecified; J68.0 Bronchitis and pneumonitis due to chemicals, gases, fumes and vapors; E11.65 Type 2 diabetes mellitus with hyperglycemia; I13.0 Hypertensive heart and chronic kidney disease with heart failure and stage 1 through stage 4 chronic kidney disease, or unspecified chronic kidney disease; E66.2 Morbid (severe) obesity with alveolar hypoventilation; D64.9 Anemia, unspecified; E78.5 Hyperlipidemia, unspecified; F14.10 Cocaine abuse, uncomplicated; K59.00 Constipation, unspecified; E87.6 Hypokalemia; F17.200 Nicotine dependence, unspecified, uncomplicated; J91.8 Pleural effusion in other conditions classified elsewhere; I44.0 Atrioventricular block, first degree; N18.2 Chronic kidney disease, stage 2 (mild); N28.1 Cyst of kidney, acquired; R31.29 Other microscopic hematuria; Z85.72 Personal history of non-Hodgkin lymphomas; Z68.42 Body mass index [BMI] 45.0-49.9, adult; I69.351 Hemiplegia and hemiparesis following cerebral infarction affecting right dominant side; Z92.21 Personal history of antineoplastic chemotherapy; Z78.1 Physical restraint status; Z79.82 Long term (current) use of aspirin; Z88.8 Allergy status to other drugs, medicaments and biological substances; Z79.899 Other long term (current) drug therapy
CPT/HCPCS: 31500; 36415; 36556; 36600; 71045; 76770; 76937; 80048; 80053; 80061; 80305; 80320; 81003; 82375; 82550; 82553; 82570; 82805; 82962; 83036; 83605; 83735; 83880; 84100; 84132; 84145; 84156; 84443; 84484; 85025; 86038; 86160; 86803; 87070; 87340; 87389; 92610; 93005; 93306; 93970; 93971; 94002; 94003; 94618; 94640; 94660; 97116; 97162; 97166; 97530; 99291; C1725; C9113; J0330; J0360; J1200; J1650; J1815; J1940; J1956; J2060; J2250; J2543; J2704; J2920; J2930; J3010; J3475; J3480; J3490; J7030; J7050; J7060; J7512; J7608; G0480

== ENCOUNTER 2020-09-13 12:58 | Inpatient (IN) | payer MEDICAID ==
[~2020-09-13] VITALS: Ht 185.4 cm; Wt 150.1 kg
[~2020-09-13 12:58] MED LIST changes: -ALBU2.5V13 HHN; +CLON0.3T PO; +DILT120C88 PO; -DOXA4TAB2 PO; -ETOMIDATE 2MG/ML 10ML VIAL IV ONE; -FAMO20TA8 PO; +MINO2.5T19 PO; +P20 MT; -SODIUM CHLORIDE 0.9% 10ML VIAL ONE; -SUCCINYLCHOLINE CHLORIDE 200MG/10ML IV ONE; +TOPUD PO; -VERA120T PO; -VERA240C2 PO
[2020-09-13 14:43] LABS: CLARITY URINE CLEAR (CLEAR); COLOR URINE YELLOW (YELLOW); KETONES URINE NEGATIVE (NEGATIVE); LEUKOCYTE ESTERASE URINE NEGATIVE (NEGATIVE); NITRITE URINE NEGATIVE (NEGATIVE); OCCULT BLOOD URINE NEGATIVE (NEGATIVE); PH URINE 5.5 (4.5-8.0); PROTEIN URINE 3+ (NEGATIVE); SPECIFIC GRAVITY URINE 1.013 (1.005-1.030); UROBILINOGEN URINE 0.2 E.U./dL (0.2-1.0)
[2020-09-13 14:59] LABS: BASOPHILS % 1.2 % (0.0-2.0); CHLORIDE 99 mEq/L (98-107); EOSINOPHILS % 4.1 % (0.0-5.0); HEMATOCRIT. 25.7 % (42.0-52.0); HEMOGLOBIN. 9.2 g/dL (14.0-18.0); LYMPHOCYTES % 12.9 % (20.0-50.0); MEAN CORPUSCULAR HEMOGLOBIN 31.7 pg (28.0-32.0); MEAN CORPUSCULAR VOLUME 88.7 fL (80.0-94.0); MEAN PLATELET VOLUME 8.5 fl (7.4-10.4); MONOCYTES % 10.1 % (2.0-8.0); NEUTROPHILS % 71.7 % (40.0-76.0); PLATELET 248 x1000/uL (130-400)
[2020-09-13] MEDS ORDERED: POTASSIUM CHLORIDE 20MEQ TABLET SR PO NR (16:00)
[2020-09-13 21:00] VITALS: BP 145/87
[2020-09-13 21:30] VITALS: BP 145/87
[2020-09-13] MEDS ORDERED: AMLO10TA80 PO (23:43)
[2020-09-13] MEDS ORDERED: CARV25TA47 PO (23:43)
[2020-09-13] MEDS ORDERED: DIPH50CA38 PO (23:43)
[2020-09-14] VITALS (7 sets, daily range): BP systolic 128–173; BP diastolic 79–94
[2020-09-14] MEDS: HYDRALAZINE HCL 100MG TABLET PO SCH ×5 (05:13→23:53)
[2020-09-14 07:28] LABS: BASOPHILS % 0.6 % (0.0-2.0); EOSINOPHILS % 3.8 % (0.0-5.0); HEMOGLOBIN. 9.1 g/dL (14.0-18.0); LYMPHOCYTES % 10.2 % (20.0-50.0); MEAN CORPUSCULAR HEMOGLOBIN 30.8 pg (28.0-32.0); MEAN CORPUSCULAR VOLUME 88.5 fL (80.0-94.0); MEAN PLATELET VOLUME 8.7 fl (7.4-10.4); NEUTROPHILS % 75.4 % (40.0-76.0); PLATELET 237 x1000/uL (130-400); RED BLOOD CELL COUNT 2.94 mill/uL (4.7-6.1); RED CELL DISTRIBUTION WIDTH 15.7 % (11.6-14.6)
[2020-09-14] MEDS: FUROSEMIDE 40MG TABLET PO SCH ×2 (09:31→17:25)
[2020-09-14] MEDS: LORATADINE 10MG TABLET PO SCH (09:31)
[2020-09-14] MEDS: AMLODIPINE 10MG TABLET PO SCH (09:32)
[2020-09-14] MEDS: DILTIAZEM HCL 120MG CAPSULE CD 24HR PO SCH ×2 (09:32→21:11)
[2020-09-14] MEDS: ASPIRIN 81MG EC TABLET PO SCH (09:32)
[2020-09-14] MEDS ORDERED: POTASSIUM CHLORIDE INJ 60 MEQ in DEXT 5% WATER 500 ML IV NR (10:30)
[2020-09-14] MEDS: SODIUM CHLORIDE 0.9% 1,000 ML IV SCH ×2 (11:59→21:12)
[2020-09-14] MEDS: ATORVASTATIN CALCIUM 40MG TABLET PO SCH (21:11)
[2020-09-15] VITALS: BP 139/85
[2020-09-15] MEDS: IPRATROPIUM/ALBUTEROL 0.5-3(2.5)MG/3ML NEB HHN PRN ×4 (03:04→21:06)
[2020-09-15 04:00] VITALS: BP 131/78
[2020-09-15] MEDS: HYDRALAZINE HCL 100MG TABLET PO SCH ×4 (05:14→23:49)
[2020-09-15 08:00] VITALS: BP 147/86
[2020-09-15] MEDS: LORATADINE 10MG TABLET PO SCH (08:41)
[2020-09-15] MEDS: AMLODIPINE 10MG TABLET PO SCH (08:41)
[2020-09-15] MEDS: ASPIRIN 81MG EC TABLET PO SCH (08:41)
[2020-09-15] MEDS: FUROSEMIDE 40MG TABLET PO SCH ×2 (08:41→17:05)
[2020-09-15] MEDS: DILTIAZEM HCL 120MG CAPSULE CD 24HR PO SCH ×2 (08:42→20:43)
[2020-09-15 12:00] VITALS: BP 157/85
[2020-09-15] MEDS: SODIUM CHLORIDE 0.9% 1,000 ML IV SCH (12:17)
[2020-09-15 12:35] LABS: BASOPHILS % 0.6 % (0.0-2.0); EOSINOPHILS % 2.4 % (0.0-5.0); HEMATOCRIT. 29.2 % (42.0-52.0); HEMOGLOBIN. 10.3 g/dL (14.0-18.0); LYMPHOCYTES % 10.5 % (20.0-50.0); MEAN CORPUSCULAR HEMOGLOBIN 30.8 pg (28.0-32.0); MEAN CORPUSCULAR VOLUME 87.7 fL (80.0-94.0); MEAN PLATELET VOLUME 8.1 fl (7.4-10.4); MONOCYTES % 11.7 % (2.0-8.0); NEUTROPHILS % 74.8 % (40.0-76.0); PLATELET 256 x1000/uL (130-400); RED BLOOD CELL COUNT 3.33 mill/uL (4.7-6.1)
[2020-09-15] MEDS ORDERED: POTASSIUM CHLORIDE 20MEQ/PACKET PO SCH (13:30)
[2020-09-15] MEDS: CALCITRIOL 0.25MCG CAPSULE PO SCH (14:05)
[2020-09-15] MEDS ORDERED: POTASSIUM CHLORIDE INJ 40 MEQ in DEXT 5% WATER 250 ML IV SCH (15:00)
[2020-09-15 16:00] VITALS: BP 145/80
[2020-09-15] MEDS ORDERED: ONDANSETRON HCL 4MG/2ML INJ IV PRN (17:30)
[2020-09-15 20:00] VITALS: BP 139/79
[2020-09-15] MEDS: ATORVASTATIN CALCIUM 40MG TABLET PO SCH (20:42)
[2020-09-16] VITALS (7 sets, daily range): BP systolic 145–164; BP diastolic 82–98
[2020-09-16] MEDS: SODIUM CHLORIDE 0.9% 1,000 ML IV SCH (02:52)
[2020-09-16] MEDS: HYDRALAZINE HCL 100MG TABLET PO SCH ×3 (05:39→17:42)
[2020-09-16 08:06] LABS: BASOPHILS % 0.5 % (0.0-2.0); EOSINOPHILS % 2.4 % (0.0-5.0); HEMATOCRIT. 26.9 % (42.0-52.0); HEMOGLOBIN. 9.1 g/dL (14.0-18.0); LYMPHOCYTES % 8.9 % (20.0-50.0); MEAN CORPUSCULAR HEMOGLOBIN 30.3 pg (28.0-32.0); MEAN CORPUSCULAR VOLUME 89.8 fL (80.0-94.0); MEAN PLATELET VOLUME 8.5 fl (7.4-10.4); MONOCYTES % 11.1 % (2.0-8.0); NEUTROPHILS % 77.1 % (40.0-76.0); PLATELET 223 x1000/uL (130-400); RED BLOOD CELL COUNT 2.99 mill/uL (4.7-6.1); RED CELL DISTRIBUTION WIDTH 15.8 % (11.6-14.6)
[2020-09-16] MEDS: FUROSEMIDE 40MG TABLET PO SCH (08:20)
[2020-09-16] MEDS: CALCITRIOL 0.25MCG CAPSULE PO SCH (08:20)
[2020-09-16] MEDS: DILTIAZEM HCL 120MG CAPSULE CD 24HR PO SCH ×2 (08:20→20:47)
[2020-09-16] MEDS: ASPIRIN 81MG EC TABLET PO SCH (08:20)
[2020-09-16] MEDS: LORATADINE 10MG TABLET PO SCH (08:20)
[2020-09-16] MEDS: AMLODIPINE 10MG TABLET PO SCH (08:21)
[2020-09-16] MEDS ORDERED: POTASSIUM CHLORIDE 20MEQ TABLET SR PO SCH (09:00)
[2020-09-16] MEDS ORDERED: POTASSIUM CHLORIDE 20MEQ/PACKET PO SCH (10:15)
[2020-09-16] MEDS ORDERED: POTASSIUM CHLORIDE INJ 60 MEQ in DEXT 5% WATER 500 ML IV SCH (11:30)
[2020-09-16] MEDS: POTASSIUM CHLORIDE 20MEQ TABLET SR PO SCH (20:46)
[2020-09-16] MEDS: ATORVASTATIN CALCIUM 40MG TABLET PO SCH (20:46)
[2020-09-17] VITALS: BP 132/84
[2020-09-17] MEDS: HYDRALAZINE HCL 100MG TABLET PO SCH ×4 (00:06→17:56)
[2020-09-17 04:00] VITALS: BP 166/85
[2020-09-17 07:08] LABS: BASOPHILS % 0.5 % (0.0-2.0); EOSINOPHILS % 2.7 % (0.0-5.0); HEMATOCRIT. 26.6 % (42.0-52.0); HEMOGLOBIN. 9.4 g/dL (14.0-18.0); LYMPHOCYTES % 8.8 % (20.0-50.0); MEAN CORPUSCULAR HEMOGLOBIN 31.4 pg (28.0-32.0); MEAN CORPUSCULAR VOLUME 89.1 fL (80.0-94.0); MONOCYTES % 9.9 % (2.0-8.0); NEUTROPHILS % 78.1 % (40.0-76.0); PLATELET 228 x1000/uL (130-400); RED BLOOD CELL COUNT 2.99 mill/uL (4.7-6.1); RED CELL DISTRIBUTION WIDTH 15.5 % (11.6-14.6)
[2020-09-17 08:00] VITALS: BP 170/89
[2020-09-17] MEDS: POTASSIUM CHLORIDE 20MEQ TABLET SR PO SCH ×2 (10:04→17:52)
[2020-09-17] MEDS: LORATADINE 10MG TABLET PO SCH (10:05)
[2020-09-17] MEDS: DILTIAZEM HCL 120MG CAPSULE CD 24HR PO SCH (10:06)
[2020-09-17] MEDS: AMLODIPINE 10MG TABLET PO SCH (10:06)
[2020-09-17] MEDS: CALCITRIOL 0.25MCG CAPSULE PO SCH (10:06)
[2020-09-17] MEDS: ASPIRIN 81MG EC TABLET PO SCH (10:11)
[2020-09-17 11:30] VITALS: BP 179/92
[2020-09-17] MEDS ORDERED: MINOXIDIL 2.5MG TABLET PO SCH (15:00)
[2020-09-17] MEDS ORDERED: DOXAZOSIN MESYLATE 2MG TABLET PO SCH (15:00)
[2020-09-17 18:57] VITALS: BP 152/81
== END 2020-09-17 20:06 | disposition home or self-care (01) | DRG 469 ==
LOC: ER 12:58 → 8WST 17:11 → ENRESERV 19:45
PROVIDERS: ADMIT Internal Medicine; ATTEND Internal Medicine
DX: N17.9 Acute kidney failure, unspecified (principal); I13.2 Hypertensive heart and chronic kidney disease with heart failure and with stage 5 chronic kidney disease, or end stage renal disease; E11.22 Type 2 diabetes mellitus with diabetic chronic kidney disease; E87.5 Hyperkalemia; Z86.74 Personal history of sudden cardiac arrest; E86.9 Volume depletion, unspecified; I50.30 Unspecified diastolic (congestive) heart failure; E87.6 Hypokalemia; E66.9 Obesity, unspecified; J44.9 Chronic obstructive pulmonary disease, unspecified; E78.00 Pure hypercholesterolemia, unspecified; R80.9 Proteinuria, unspecified; G47.33 Obstructive sleep apnea (adult) (pediatric); E21.1 Secondary hyperparathyroidism, not elsewhere classified; D63.8 Anemia in other chronic diseases classified elsewhere; N18.5 Chronic kidney disease, stage 5; Z68.41 Body mass index [BMI] 40.0-44.9, adult; Z88.8 Allergy status to other drugs, medicaments and biological substances; Z79.82 Long term (current) use of aspirin; Z79.899 Other long term (current) drug therapy; Z79.1 Long term (current) use of non-steroidal anti-inflammatories (NSAID); Z95.810 Presence of automatic (implantable) cardiac defibrillator
CPT/HCPCS: 36415; 76770; 80048; 80053; 81003; 83735; 83970; 85025; 93005; 93306; 99285; J2405; J3480; J7030; J7060